=== PATIENT | female | born 1965 | race African-American/Black ===

== ENCOUNTER 2018-06-17 11:39 | Emergency (ER) | payer OTHER ==
--- OUTSIDE RECORDS SUMMARY | 2018-06-17 11:41 | XMS REPORT ---
:1965 [facility] Address [address] [place] [address] Dr. Scanlon. [address] [place] [id number] Care Team Providers Name Role Phone Unavailable Unavailable Unavailable Problems This patient has no known problems. Allergies, Adverse Reactions, Alerts This patient has no known allergies or adverse reactions. Medications This patient has no known medications.
[2018-06-17 12:23] LABS: Absolute Lymphocytes (CBC) 2.3 K/uL (0.7-4.9); Absolute Monocytes 0.6 K/uL (0.1-1.3); Absolute Neutrophil 3.4 K/uL (1.8-8.0); Basophils % 1.1 % (0-1.3); Eosinophils % 2.7 % (0-4.4); Hematocrit 46.7 % (36.0-45.0); Lymphocytes % 35.1 % (15.3-44.8); MPV 10.1 fL (7.6-11.3); Monocytes % 8.7 % (3.3-12.3); RBC Red Blood Cell Count 5.35 M/uL (3.86-4.86)
[2018-06-17 12:28] LABS: Protime INR 1.27
[2018-06-17 12:36] LABS: ALT/SGPT 34 U/L (12-78); AST/SGOT 22 U/L (15-37); Albumin 3.8 g/dL (3.4-5.0); Alkaline Phosphatase 58 U/L (45-117); BUN Blood Urea Nitrogen 19 mg/dL (7-18); Bicarbonate 37 mmol/L (21-32); Bilirubin Direct 0.4 mg/dL (0-0.2); Bilirubin Total 1.6 mg/dL (0.2-1.0); Glucose Level 90 mg/dL (74-106); Magnesium 2.3 mg/dL (1.8-2.4); NT PRO-BNP 236 pg/mL (<125); Potassium 4.2 mmol/L (3.5-5.1); Protein, Total 7.9 g/dL (6.4-8.2); Sodium Level 140 mmol/L (136-145); Troponin (Emerg Dept Use Only) < 0.02 ng/mL (0.0-0.045)
--- NOTE | 2018-06-17 12:56 | RAD REPORT ---
EXAM DESCRIPTION: RAD - Chest Single View - 06/17/2018 12:45 pm CLINICAL HISTORY: Cough, shortness of breath COMPARISON: June 2013 TECHNIQUE: AP portable chest image was obtained 1241 hours . FINDINGS: Lungs are clear. No failure or volume overload. Heart and vasculature are normal. No measu rable pleural effusion and no pneumothorax. No acute bony abnormality seen. No acute aortic findings suspected. Exam is limited by portable technique and large body habitus. IMPRESSION: No acute cardiopulmonary process.
--- NOTE | 2018-06-17 14:51 | ER ---
Nurse's Notes [facility] Name: Danie Kumar Age: 53 yrs Sex: Female : 1965 Arrival Date: 06/17/2018 Time: 11:44 Bed 5 Private MD: Diagnosis: Chronic obstructive pulmonary disease, unspecified Presentation: 06/17 11:45 Presenting complaint: Patient states: Shortness of breath, cough, and congestion for aj1 the past 2 weeks. She saw her PHCP a week ago and was given a Rx for Pro-Air inhaler and steroids, which she has now finished with no relief. Reports a non-productive cough, chest pain with cough. Patient was 94% on room air upon EMS arrival, breath sounds diminished with wheezes, patient given A\T\A treatment en route. Transition of care: patient was not received from another setting of care. Onset of symptoms was June 2018. Risk Assessment: Do you want to hurt yourself or someone else? Patient reports no desire to harm self or others. Initial Sepsis Screen: Does the patient meet any 2 criteria? HR > 90 bpm. No. Patient's initial sepsis screen is negative. Does the patient have a suspected source of infection? Yes: Productive cough/pneumonia. Care prior to arrival: None. 11:45 Method Of Arrival: EMS: [facility] aj 11:45 Acuity: ANNABEL 3 aj1 Triage Assessment: 11:52 General: Appears in no apparent distress. comfortable, Behavior is calm, cooperative, aj1 appropriate for age. Pain: Complains of pain in chest Pain does not radiate. Pain currently is 5 out of 10 on a pain scale. Quality of pain is described as aching, Is intermittent, Aggravated by coughing. Respiratory: Reports shortness of breath cough that is non-productive, persistent Onset: The symptoms/episode began/occurred 2 weeks ago, the patient has mild shortness of breath. Historical: - Allergies: 11:52 Adhesives; aj1 - Home Meds: 11:52 furosemide 80 mg Oral tab 1 tab 2 times per day [Active]; potassium chloride 20 mEq aj1 Oral TbER 1 tab once daily [Active]; tramadol 50 mg Oral tab 1 tab as needed [Active]; Eliquis 5 mg Oral tab 1 tab 2 times per day [Active]; allopurinol 100 mg Oral tab 1 tab once daily [Active]; colchicine 0.6 mg Oral tab 1 tab as needed [Active]; multivitamin oral cap daily [Active]; digoxin 125 mcg Oral tab 1 tab once daily [Active]; simvastatin 40 mg Oral tab 1 tab nightly [Active]; spironolactone 25 mg Oral tab 1 tab once daily [Active]; carvedilol 6.25 mg Oral tab 1 tab 2 times per day [Active]; budesonide-formoterol inhalation inhalation 2 times per day [Active]; - PMHx: 11:52 CHF; Hyperlipidemia; Hypertension; COPD; cardiomyopathy; chronic kidney disease-stage aj1 3; Sleep Apnea; Gout; - Immunization history:: Flu vaccine is not up to date. - Social history:: Smoking status: Patient/guardian denies using tobacco, but has a distant history of tobacco abuse. - Ebola Screening: : Patient denies travel to an Ebola-affected area in the 21 days before illness onset. Screenin:54 Abuse screen: Denies threats or abuse. Denies injuries from another. Nutritional aj1 screening: No deficits noted. Tuberculosis screening: No symptoms or risk factors identified. 16:28 Fall Risk None identified. aj1 Assessment: 11:54 General: Appears in no apparent distress. comfortable, Behavior is calm, cooperative, aj1 appropriate for age. Pain: Complains of pain in chest Pain does not radiate. Pain currently is 5 out of 10 on a pain scale. Quality of pain is described as aching, Pain began 2 weeks ago Is intermittent, Aggravated by coughing. Neuro: Level of Consciousness is awake, alert, obeys commands, Oriented to person, place, time, situation, Moves all extremities. Full function Speech is normal, Facial symmetry appears normal. Cardiovascular: Reports chest pain, with coughing Heart tones S1 S2 present Patient's skin is warm and dry. Rhythm is regular. Respiratory: Reports shortness of breath cough that is non-productive, persistent Airway is patent Respiratory effort is even, unlabored, Respiratory pattern is regular, symmetrical, Breath sounds with wheezes bilaterally. GI: No signs and/or symptoms were reported involving the gastrointestinal system. : No signs and/or symptoms were reported regarding the genitourinary system. EENT: Reports nasal congestion nasal discharge. Derm: No signs and/or symptoms reported regarding the dermatologic system. Skin is pink, warm \T\ dry. normal. Musculoskeletal: No signs and/or symptoms reported regarding the musculoskeletal system. Circulation, motion, and sensation intact. 13:00 Reassessment: Patient appears in no apparent distress at this time. No changes from aj1 previously documented assessment. Patient and/or family updated on plan of care and expected duration. Pain level reassessed. Patient is alert, oriented x 3, equal unlabored respirations, skin warm/dry/pink. 14:30 Reassessment: Patient appears in no apparent distress at this time. No changes from aj1 previously documented assessment. Patient and/or family updated on plan of care and expected duration. Pain level reassessed. Patient is alert, oriented x 3, equal unlabored respirations, skin warm/dry/pink. 16:27 Reassessment: Patient appears in no apparent distress at this time. No changes from aj1 previously documented assessment. Patient and/or family updated on plan of care and expected duration. Pain level reassessed. Patient is alert, oriented x 3, equal unlabored respirations, skin warm/dry/pink. Vital Signs: 11:52 BP 103 / 70; Pulse 115; Resp 20; Temp 97.6; Pulse Ox 97% on R/A; Weight 155.58 kg (R); aj1 Height 5 ft. 9 in. (175.26 cm) (R); Pain 5/10; 16:28 BP 108 / 75; Pulse 87; Resp 18; Pulse Ox 97% on R/A; aj1 11:52 Body Mass Index 50.65 (155.58 kg, 175.26 cm) aj1 ED Course: 11:44 Patient arrived in ED. aj1 11:47 Triage completed. aj1 11:50 Olivier Cruz NP is PHCP. pm1 11:50 Emerson Vargas MD is Attending Physician. pm1 11:52 Arm band placed on. aj1 11:54 Patient has correct armband on for positive identification. Bed in low position. Call [facility] light in reach. Side rails up X 1. residential monitor on. Pulse ox on. NIBP on. 11:54 No provider procedures requiring assistance completed. aj1 11:57 Missed attempt(s): 22 gauge in right antecubital area. kj1 12:11 Selina Funk, RN is Primary Nurse. aj1 12:13 Initial lab(s) drawn, by me, sent to lab. Inserted saline lock: 22 gauge in right aj1 forearm, using aseptic technique. Blood collected. 12:25 EKG done, by vehicle operator technician. reviewed by Olivier Cruz NP. at1 12:46 XRAY Chest (1 view) In Process Unspecified. EDMS 16:28 IV discontinued, intact, bleeding controlled, No redness/swelling at site. Pressure aj1 dressing applied. Administered Medications: 06:10 Drug: SOLU-Medrol 125 mg Route: IVP; Site: right forearm; aj1 16:26 Follow up: Response: No adverse reaction aj1 Outcome: 14:51 Discharge ordered by MD. pm1 16:28 Discharged to home ambulatory. aj1 16:28 Condition: good 16:28 Discharge instructions given to patient, Instructed on discharge instructions, follow up and referral plans. medication usage, Demonstrated understanding of instructions, follow-up care, medications, Prescriptions given X 4. 16:29 Patient left the ED. aj1 Signatures: Dispatcher [employer] EDND Selina Funk RN RN aj1 Ritika Hunter, tool storage attendant EKG Tat1 Olivier Cruz, LIZA ENGRAVER AUTOMATIC pm1 Billie Vu kj1
--- NOTE | 2018-06-17 14:51 | EDPHYS ---
Physician Documentation [facility] Name: Danie Kumar Age: 53 yrs Sex: Female : 1965 Arrival Date: 06/17/2018 Time: 11:44 Bed 5 Private MD: ED Physician Emerson Vargas HPI: 06/17 12:00 This 53 yrs old Black Female presents to ER via EMS with complaints of Shortness Of pm1 Breath. 12:00 The patient has shortness of breath at rest. Onset: The symptoms/episode began/occurred pm1 2 week(s) ago. Duration: The symptoms are continuous, and are unchanged since they started. The patient's shortness of breath is aggravated by nothing, is alleviated by nebulizer treatment, in route by EMS. Associated signs and symptoms: Pertinent positives: non-productive cough, Chest pain only with coughing, Pertinent negatives: fever. Severity of symptoms: in the emergency department the symptoms are unchanged Pain is currently a 0 / 10. The patient has been recently seen by a physician: the patient's primary care provider, 1 week(s) ago, given a prescription for inhaler and steroids. Patient presenting to the ER due to lack of improvement with steroid course and inhaler as prescribed by PCP. Patient's symptoms improved with breathing treatment in route by EMS. Historical: - Allergies: 11:52 Adhesives; aj1 - Home Meds: 11:52 furosemide 80 mg Oral tab 1 tab 2 times per day [Active]; potassium chloride 20 mEq aj1 Oral TbER 1 tab once daily [Active]; tramadol 50 mg Oral tab 1 tab as needed [Active]; Eliquis 5 mg Oral tab 1 tab 2 times per day [Active]; allopurinol 100 mg Oral tab 1 tab once daily [Active]; colchicine 0.6 mg Oral tab 1 tab as needed [Active]; multivitamin oral cap daily [Active]; digoxin 125 mcg Oral tab 1 tab once daily [Active]; simvastatin 40 mg Oral tab 1 tab nightly [Active]; spironolactone 25 mg Oral tab 1 tab once daily [Active]; carvedilol 6.25 mg Oral tab 1 tab 2 times per day [Active]; budesonide-formoterol inhalation inhalation 2 times per day [Active]; - PMHx: 11:52 CHF; Hyperlipidemia; Hypertension; COPD; cardiomyopathy; chronic kidney disease-stage aj1 3; Sleep Apnea; Gout; - Immunization history:: Flu vaccine is not up to date. - Social history:: Smoking status: Patient/guardian denies using tobacco, but has a distant history of tobacco abuse. - Ebola Screening: : Patient denies travel to an Ebola-affected area in the 21 days before illness onset. ROS: 12:00 Constitutional: Negative for fever, chills, and weight loss, Eyes: Negative for injury, pm1 pain, redness, and discharge, ENT: Negative for injury, pain, and discharge, Neck: Negative for injury, pain, and swelling, Cardiovascular: Negative for chest pain, palpitations, and edema, Abdomen/GI: Negative for abdominal pain, nausea, vomiting, diarrhea, and constipation, Back: Negative for injury and pain, : Negative for injury, bleeding, discharge, and swelling, MS/Extremity: Negative for injury and deformity, Skin: Negative for injury, rash, and discoloration, Neuro: Negative for headache, weakness, numbness, tingling, and seizure. 12:00 Respiratory: Positive for cough, with no reported sputum, shortness of breath, at rest. Exam: 12:00 Constitutional: This is a well developed, well nourished patient who is awake, alert, pm1 and in no acute distress. Head/Face: Normocephalic, atraumatic. Eyes: Pupils equal round and reactive to light, extra-ocular motions intact. Lids and lashes normal. Conjunctiva and sclera are non-icteric and not injected. Cornea within normal limits. Periorbital areas with no swelling, redness, or edema. ENT: Nares patent. No nasal discharge, no septal abnormalities noted. Tympanic membranes are normal and external auditory canals are clear. Oropharynx with no redness, swelling, or masses, exudates, or evidence of obstruction, uvula midline. Mucous membranes moist. Neck: Trachea midline, no thyromegaly or masses palpated, and no cervical lymphadenopathy. Supple, full range of motion without nuchal rigidity, or vertebral point tenderness. No Meningismus. Chest/axilla: Normal chest wall appearance and motion. Nontender with no deformity. No lesions are appreciated. Cardiovascular: Regular rate and rhythm with a normal S1 and S2. No gallops, murmurs, or rubs. Normal PMI, no JVD. No pulse deficits. Respiratory: Lungs have equal breath sounds bilaterally, clear to auscultation and percussion. No rales, rhonchi or wheezes noted. No increased work of breathing, no retractions or nasal flaring. Abdomen/GI: Soft, non-tender, with normal bowel sounds. No distension or tympany. No guarding or rebound. No evidence of tenderness throughout. Back: No spinal tenderness. No costovertebral tenderness. Full range of motion. Skin: Warm, dry with normal turgor. Normal color with no rashes, no lesions, and no evidence of cellulitis. MS/ Extremity: Pulses equal, no cyanosis. Neurovascular intact. Full, normal range of motion. 12:00 Neuro: Orientation: is normal, Motor: is normal, moves all fours, Gait: is steady, at a normal pace, without difficulty. Vital Signs: 11:52 BP 103 / 70; Pulse 115; Resp 20; Temp 97.6; Pulse Ox 97% on R/A; Weight 155.58 kg (R); aj1 Height 5 ft. 9 in. (175.26 cm) (R); Pain 5/10; 16:28 BP 108 / 75; Pulse 87; Resp 18; Pulse Ox 97% on R/A; aj1 11:52 Body Mass Index 50.65 (155.58 kg, 175.26 cm) [facility] MDM: 11:50 Patient medically screened. pm1 14:50 Data reviewed: vital signs. Data interpreted: Pulse oximetry: on room air is 97 %. pm1 Interpretation: normal. Counseling: I had a detailed discussion with the patient and/or guardian regarding: the historical points, exam findings, and any diagnostic results supporting the discharge/admit diagnosis, lab results, radiology results, the need for outpatient follow up, to return to the emergency department if symptoms worsen or persist or if there are any questions or concerns that arise at home. 06/17 11:59 Order name: Basic Metabolic Panel; Complete Time: 12:46 pm1 06/17 11:59 Order name: CBC with Diff; Complete Time: 12:31 pm1 06/17 11:59 Order name: LFT's; Complete Time: 12:46 pm1 06/17 11:59 Order name: Magnesium; Complete Time: 12:46 pm1 06/17 11:59 Order name: NT PRO-BNP; Complete Time: 12:46 pm1 06/17 11:59 Order name: PT-INR; Complete Time: 12:31 pm1 06/17 11:59 Order name: Troponin (emerg Dept Use Only); Complete Time: 12:46 pm1 06/17 11:59 Order name: XRAY Chest (1 view); Complete Time: 13:04 pm1 06/17 11:59 Order name: EKG; Complete Time: 12:00 pm06/17 11:59 Order name: Cardiac monitoring; Complete Time: 12:12 pm1 06/17 11:59 Order name: EKG - Nurse/Tech; Complete Time: 12:35 pm1 06/17 11:59 Order name: IV Saline Lock; Complete Time: 12:12 pm06/17 11:59 Order name: Flu; Complete Time: 12:46 pm1 06/17 11:59 Order name: Labs collected and sent; Complete Time: 12:12 pm06/17 11:59 Order name: O2 Per Protocol; Complete Time: 12:12 pm06/17 11:59 Order name: O2 Sat Monitoring; Complete Time: 12:12 pm1 Administered Medications: 06:10 Drug: SOLU-Medrol 125 mg Route: IVP; Site: right forearm; aj 16:26 Follow up: Response: No adverse reaction aj1 Disposition: 06/17/18 14:51 Discharged to Home. Impression: Chronic obstructive pulmonary disease, unspecified. - Condition is Stable. - Discharge Instructions: How to Use an Inhaler, Chronic Obstructive Pulmonary Disease Exacerbation, [id number]. - Prescriptions for Medrol (Damian) 4 mg Oral Tablets, Dose Pack - take 1 tablet by ORAL route as directed - follow package instructions; 1 packet. Albuterol Sulfate 90 mcg/actuation - inhale 1-2 puff by INHALATION route every 4-6 hours; 1 Inhaler. Guaifenesin AC 10- 100 mg/5 mL Oral Liquid - take 10 milliliter by ORAL route every 4 hours As needed; 240 milliliter. Zithromax Z- Damian 250 mg Oral Tablet - take 1 tablet by ORAL route as directed for 5 days Day 1 - take two (2) tablets one time. Day 2, 3, 4 , 5 take one (1) tablet once daily.; 6 tablet. - Medication Reconciliation Form, Thank You Letter, Antibiotic Education, Prescription Opioid Use form. - Follow up: Emergency Department; When: As needed; Reason: Worsening of condition. Follow up: Private Physician; When: 2 - 3 days; Reason: Recheck today's complaints, Continuance of care, Re-evaluation by your physician. - Problem is new. - Symptoms have improved. Addendum: 06/20/2018 08:39 Co-signature as Attending Physician, Emerson Vargas MD I agree with the assessment and k dr plan of care. Signatures: Dispatcher [employer] EDMS Selina Funk RN RN aj1 Emerson Vargas MD MD kdr Olivier Cruz NP SAND CUTTER OPERATOR pm1 Corrections: (The following items were deleted from the chart) 06/17 14:59 14:51 06/17/2018 14:51 Discharged to Home. Impression: Bronchitis, not specified as pm1 acute or chronic. Condition is Stable. Forms are Medication Reconciliation Form, Thank You Letter, Antibiotic Education, Prescription Opioid Use. Follow up: Emergency Department; When: As needed; Reason: Worsening of condition. Follow up: Private Physician; When: 2 - 3 days; Reason: Recheck today's complaints, Continuance of care, Re-evaluation by your physician. Problem is new. Symptoms have improved. pm1 16:29 14:59 06/17/2018 14:51 Discharged to Home. Impression: Chronic obstructive pulmonary aj1 disease, unspecified. Condition is Stable. Discharge Instructions: How to Use an Inhaler, Chronic Obstructive Pulmonary Disease Exacerbation, [id number]. Prescriptions for Medrol (Damian) 4 mg Oral Tablets, Dose Pack - take 1 tablet by ORAL route as directed - follow package instructions; 1 packet, Albuterol Sulfate 90 mcg/actuation - inhale 1-2 puff by INHALATION route every 4-6 hours; 1 Inhaler, Guaifenesin AC 10-100 mg/5 mL Oral Liquid - take 10 milliliter by ORAL route every 4 hours As needed; 240 milliliter, Zithromax Z-Damian 250 mg Oral Tablet - take 1 tablet by ORAL route as directed for 5 days Day 1 - take two (2) tablets one time. Day 2, 3, 4 , 5 take one (1) tablet once daily.; 6 tablet. and Forms are Medication Reconciliation Form, Thank You Letter, Antibiotic Education, Prescription Opioid Use. Follow up: Emergency Department; When: As needed; Reason: Worsening of condition. Follow up: Private Physician; When: 2 - 3 days; Reason: Recheck today's complaints, Continuance of care, Re-evaluation by your physician. Problem is new. Symptoms have improved. pm1
[2018-06-17] MEDS ORDERED: METHYLPREDNISOLONE 125 MG INJ ONE (16:32)
--- NOTE | 2018-06-18 09:46 | EKG ---
Test Date: 2018-06-17 Test Time: 12:14:30 Drug Abuse Social Worker: KEYA MEASUREMENT RESULTS: Intervals: Rate: 89 NV: QRSD: 84 QT: 350 QTc: 425 [place]: P: NV: QRS: -21 T: 48 INTERPRETIVE STATEMENTS: Atrial fibrillation Low voltage QRS Cannot rule out Anterior infarct, age undetermined Abnormal ECG Compared to ECG 05/06/2007 09:07:30 Low QRS voltage now present Sinus bradycardia no longer present Left ventricular hypertrophy no longer present Myocardial infarct finding still present Electronically Signed On 06-18-18 09:43:13 CDT by Wayne Castano
== END 2018-06-17 16:29 | disposition home or self-care (01) ==
LOC: ER 11:39
DX: J44.9 Chronic obstructive pulmonary disease, unspecified (principal); I12.9 Hypertensive chronic kidney disease with stage 1 through stage 4 chronic kidney disease, or unspecified chronic kidney disease; N18.3 Chronic kidney disease, stage 3 (moderate); E78.5 Hyperlipidemia, unspecified; I42.9 Cardiomyopathy, unspecified; Z79.01 Long term (current) use of anticoagulants; Z91.048 Other nonmedicinal substance allergy status
CPT/HCPCS: 36415; 71045; 80048; 80076; 83735; 83880; 84484; 85025; 85610; 87804; 93005; 96374; 99285; J2930

== ENCOUNTER 2018-08-27 10:11 | Inpatient (IN) | payer SELFPAY ==
--- OUTSIDE RECORDS SUMMARY | 2018-08-27 10:36 | XMS REPORT ---
:1965 [facility] Address [address] [place] [address] Dr. Scanlon. [address] [place] [address] Care Team Providers Name Role Phone Unavailable Unavailable Unavailable Problems This patient has no known problems. Allergies, Adverse Reactions, Alerts This patient has no known allergies or adverse reactions. Medications This patient has no known medications.
[2018-08-27] MEDS ORDERED: LEVALBUTEROL 1.25 MG/3 ML NEB ONE (10:40)
[2018-08-27] MEDS ORDERED: FUROSEMIDE 40 MG/4 ML VIAL ONE (10:40)
[2018-08-27 10:45] LABS: Absolute Lymphocytes (CBC) 1.7 K/uL (0.7-4.9); Basophils % 0.8 % (0-1.3); Eosinophils % 2.8 % (0-4.4); Hematocrit 44.9 % (36.0-45.0); MPV 10.7 fL (7.6-11.3); Monocytes % 12.7 % (3.3-12.3); RBC Red Blood Cell Count 5.07 M/uL (3.86-4.86)
[2018-08-27 10:46] LABS: Protime INR 1.09
[2018-08-27 11:04] LABS: ALT/SGPT 32 U/L (12-78); AST/SGOT 22 U/L (15-37); Albumin 3.6 g/dL (3.4-5.0); Alkaline Phosphatase 51 U/L (45-117); BUN Blood Urea Nitrogen 12 mg/dL (7-18); Bicarbonate 35 mmol/L (21-32); Bilirubin Direct 0.2 mg/dL (0-0.2); Glucose Level 108 mg/dL (74-106); Magnesium 2.2 mg/dL (1.8-2.4); NT PRO-BNP 343 pg/mL (<125); Potassium 4.1 mmol/L (3.5-5.1); Protein, Total 7.2 g/dL (6.4-8.2); Sodium Level 144 mmol/L (136-145); Troponin (Emerg Dept Use Only) < 0.02 ng/mL (0.0-0.045)
--- NOTE | 2018-08-27 11:44 | RAD REPORT ---
EXAM DESCRIPTION: RAD - Chest Single View - 08/27/2018 10:55 am CLINICAL HISTORY: Difficulty breathing, history of COPD and CHF COMPARISON: June 2018 TECHNIQUE: AP portable chest image was obtained 1049 hours . FINDINGS: Lung volumes are low. No focal mass or consolidation. Lung markings are accentuated by sha llow inspiration, body habitus and portable technique. Significant change from prior study is not rosmery pected. Cardiomegaly is present, exaggerated by the shallow inspiration. No measurable pleural effusi on and no pneumothorax. No acute bony abnormality seen. No acute aortic findings suspected. IMPRESSION: Shallow inspiration film showing no focal lung parenchymal process. Cardiomegaly without additional findings of CHF/volume overload.
--- NOTE | 2018-08-27 11:45 | RAD REPORT ---
EXAM DESCRIPTION: RAD - Abdomen 1 View (KUB) - 08/27/2018 11:05 am CLINICAL HISTORY: Difficulty breathing, shortness of breath, abdominal pain COMPARISON: None. FINDINGS: Bowel gas pattern is non-specific. No obstruction, free air or pneumatosis. No suspicious calcifications. No abnormal stool volume evident in the colon. No significant bony findings IMPRESSION: Negative KUB examination.
--- NOTE | 2018-08-27 14:39 | ER ---
Nurse's Notes [facility] Name: Danie Kumar Age: 53 yrs Sex: Female : 1965 Arrival Date: 08/27/2018 Time: 10:11 Bed 5 Private MD: Diagnosis: Acute on chronic combined systolic (congestive) and diastolic (congestive) heart failure;Hypoxia Presentation: 08/27 10:12 Presenting complaint: EMS states: pt is having difficulty breathing, hx of COPD and hj CHF, for a week now, denies fever, on scene, pt is on 89-90% O2 sat RA; NC in place, O2 sat remains on low 90's; placed on NRB- O2 sat increased to 98%;. Transition of care: patient was not received from another setting of care. Onset of symptoms was August 27, 2018. Risk Assessment: Do you want to hurt yourself or someone else? Patient reports no desire to harm self or others. Initial Sepsis Screen: Does the patient meet any 2 criteria? No. Patient's initial sepsis screen is negative. Does the patient have a suspected source of infection? No. Patient's initial sepsis screen is negative. Care prior to arrival: None. 10:12 Method Of Arrival: EMS: [facility] 10:12 Acuity: ANNABEL 2 hj Triage Assessment: 10:22 General: Appears in no apparent distress. uncomfortable, obese, Behavior is calm, hj cooperative, appropriate for age. Respiratory: Reports labored breathing Onset: The symptoms/episode began/occurred one week, the patient has moderate shortness of breath. 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 - Irregular menses Historical: - Allergies: 10:06 Adhesives; hj - Home Meds: 10:06 allopurinol 100 mg Oral tab 1 tab once daily [Active]; budesonide-formoterol inhalation hj 2 times per day [Active]; carvedilol 6.25 mg Oral tab 1 tab 2 times per day [Active]; colchicine 0.6 mg Oral tab 1 tab as needed [Active]; digoxin 125 mcg Oral tab 1 tab once daily [Active]; Eliquis 5 mg Oral tab 1 tab 2 times per day [Active]; furosemide 80 mg Oral tab 1 tab 2 times per day [Active]; multivitamin Oral cap daily [Active]; potassium chloride 20 mEq Oral TbER 1 tab once daily [Active]; simvastatin 40 mg Oral tab 1 tab nightly [Active]; spironolactone 25 mg Oral tab 1 tab once daily [Active]; tramadol 50 mg Oral tab 1 tab as needed [Active]; - PMHx: 10:06 cardiomyopathy; CHF; chronic kidney disease-stage 3; COPD; Gout; Hyperlipidemia; hj Hypertension; Sleep Apnea; - PSHx: 10:06 Unable to obtain; hj - Immunization history:: Adult Immunizations up to date. - Social history:: Smoking status: Patient/guardian denies using tobacco, Patient/guardian denies using alcohol. - Ebola Screening: : Patient negative for fever greater than or equal to 101.5 degrees Fahrenheit, and additional compatible Ebola Virus Disease symptoms Patient denies exposure to infectious person Patient denies travel to an Ebola-affected area in the 21 days before illness onset. Screenin:06 Abuse screen: Denies threats or abuse. Denies injuries from another. Nutritional hj screening: No deficits noted. Tuberculosis screening: No symptoms or risk factors identified. Fall Risk None identified. Assessment: 10:20 Pain: Denies pain. Cardiovascular: Rhythm is. Respiratory: Airway is patent Respiratory hj effort is labored, Respiratory pattern is tachypnea 10:20 General: Appears in no apparent distress. uncomfortable, obese, Behavior is calm, hj cooperative, appropriate for age. Neuro: Level of Consciousness is awake, alert, obeys commands, Oriented to person, place, time, situation, Appropriate for age. GI: No signs and/or symptoms were reported involving the gastrointestinal system. : No signs and/or symptoms were reported regarding the genitourinary system. EENT: No signs and/or symptoms were reported regarding the EENT system. Derm: No signs and/or symptoms reported regarding the dermatologic system. Musculoskeletal: No signs and/or symptoms reported regarding the musculoskeletal system. 11:39 Reassessment: Patient and/or family updated on plan of care and expected duration. Pain hj level reassessed. Patient is alert, oriented x 3, equal unlabored respirations, skin warm/dry/pink. awaiting results and POC:. 12:03 Reassessment: Patient and/or family updated on plan of care and expected duration. Pain hj level reassessed. Patient is alert, oriented x 3, equal unlabored respirations, skin warm/dry/pink. awaiting results and POC;. 13:30 Reassessment: Patient and/or family updated on plan of care and expected duration. Pain hj level reassessed. Patient is alert, oriented x 3, equal unlabored respirations, skin warm/dry/pink. heart rate goes up to 115- 120's when pt goes to bedside commode. 14:21 Reassessment: ambulated pt, 50 feet, O2 sat drops to 81% and pt is complaining of SOB;. hj 15:30 Reassessment: awaiting for room placement;. hj 16:17 Reassessment: Patient and/or family updated on plan of care and expected duration. Pain hj level reassessed. Patient is alert, oriented x 3, equal unlabored respirations, skin warm/dry/pink. awaiting room placement; BP drops to 81/49; MD notified with order of Ns bolus;. Vital Signs: 10:14 BP 104 / 68; Pulse 112; Resp 29; Temp 98.2(O); Pulse Ox 100% on Non-rebreather mask; hj Weight 146.96 kg; Height 5 ft. 9 in. (175.26 cm); Pain 0/10; 10:16 Pulse Ox 99% on 2 lpm NC; hj 11:35 BP 105 / 97; Pulse 98; Resp 20; Pulse Ox 100% on 2 lpm NC; hj 12:09 BP 110 / 85; Pulse 95; Resp 20; Pulse Ox 96% on 2 lpm NC; hj 13:17 BP 116 / 69; Pulse 95; Resp 20; Pulse Ox 100% on 2 lpm NC; hj 13:57 BP 100 / 74; Pulse 88; Resp 20; Pulse Ox 100% on 2 lpm NC; hj 14:42 Pulse Ox 81% on R/A; hj 15:07 BP 100 / 68; Pulse 81; Resp 18; Pulse Ox 100% on 2 lpm NC; hj 16:07 BP 97 / 58; Pulse 80; Resp 18; Pulse Ox 99% on 2 lpm NC; hj 16:14 BP 81 / 49; Pulse 82; Resp 20; Pulse Ox 99% on 2 lpm NC; hj 16:44 BP 85 / 49; Pulse 89; Resp 20; Pulse Ox 99% on 2 lpm NC; hj 10:14 Body Mass Index 47.84 (146.96 kg, 175.26 cm) hj 14:42 while walking hj 16:14 MD aware with orders of NS 500 ml bolus hj ED Course: 10:11 Patient arrived in ED. hj 10:12 Aiden Anton PA is PHCP. jmm 10:12 Jacob Ruiz MD is Attending Physician. jmm 10:14 Triage completed. hj 10:19 Jacob Ruiz MD is Attending Physician. jmm 10:20 Arm band placed on right wrist. hj 10:22 Beto Brito, MONISHA is Primary Nurse. hj 10:22 Patient has correct armband on for positive identification. Placed in gown. Bed in low hj position. Call light in reach. Side rails up X 1. 10:28 EKG done, by ED staff, reviewed by Aiden MENDOSA. jb1 10:30 Initial lab(s) drawn, by me, sent to lab. Inserted saline lock: 22 gauge in left hj antecubital area, using aseptic technique. Blood collected. 10:53 XRAY Chest (1 view) In Process Unspecified. EDMS 11:05 Abdomen 1 View (KUB) XRAY In Process Unspecified. EDMS 13:56 Digoxin Sent. hj 14:36 Marycarmen Anderson MD is Hospitalizing Provider. jmm 17:30 No provider procedures requiring assistance completed. Patient admitted, IV remains in hj place. intact. Administered Medications: 10:23 Drug: Xopenex (3) 1.25 mg Route: Inhalation; hj 10:36 Drug: Lasix 40 mg Route: IVP; Site: left antecubital; hj 11:00 Follow up: Response: No adverse reaction hj 12:59 Drug: carvedilol 6.25 mg Route: PO; hj 13:04 Follow up: Response: No adverse reaction hj 14:39 Drug: Digoxin 0.5 mg Route: IVP; Site: left antecubital; hj 15:08 Follow up: Response: No adverse reaction hj 16:11 Drug: NS 0.9% 500 ml Route: IV; Rate: bolus; Site: left antecubital; hj 16:15 Follow up: IV Status: Infusion continued upon admission hj Outcome: 14:38 Decision to Hospitalize by Provider. jmm 17:31 Admitted to Med/surg accompanied by tech, via wheelchair, room 213, with oxygen, with hj chart, Report called to MONISHA Crespo 17:31 Condition: stable 17:31 Instructed on the need for admit, Demonstrated understanding of instructions. 17:32 Patient left the ED. tee Signatures: Dispatcher [employer] EDMS Renny Magallanes jb1 Aiden Anton PA PA jmm Joaquin, Henry, RN RN hj
--- NOTE | 2018-08-27 14:39 | EDPHYS ---
Physician Documentation [facility] Name: Danie Kumar Age: 53 yrs Sex: Female : 1965 Arrival Date: 08/27/2018 Time: 10:11 Bed 5 Private MD: ED Physician Jacob Ruiz HPI: 08/27 10:18 This 53 yrs old Black Female presents to ER via EMS with complaints of Breathing jmm Difficulty. 10:18 The patient has shortness of breath at rest. Onset: The symptoms/episode began/occurred jmm 1 week(s) ago. Duration: The symptoms are continuous, and are steadily getting worse. Associated signs and symptoms: Pertinent negatives: fever. This is a 53 year old female with a history of chf, chronic kidney disease, copd, that presents to the ED with complaints of chronic shortness of breath which has worsened over the past week. Patient states being chronically short of breath but over the past week her symptoms have worsened. Patient also complains of 2 weeks of constipation without abdominal pain. . 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 - Irregular menses hj Historical: - Allergies: 10:06 Adhesives; hj - Home Meds: 10:06 allopurinol 100 mg Oral tab 1 tab once daily [Active]; budesonide-formoterol inhalation hj 2 times per day [Active]; carvedilol 6.25 mg Oral tab 1 tab 2 times per day [Active]; colchicine 0.6 mg Oral tab 1 tab as needed [Active]; digoxin 125 mcg Oral tab 1 tab once daily [Active]; Eliquis 5 mg Oral tab 1 tab 2 times per day [Active]; furosemide 80 mg Oral tab 1 tab 2 times per day [Active]; multivitamin Oral cap daily [Active]; potassium chloride 20 mEq Oral TbER 1 tab once daily [Active]; simvastatin 40 mg Oral tab 1 tab nightly [Active]; spironolactone 25 mg Oral tab 1 tab once daily [Active]; tramadol 50 mg Oral tab 1 tab as needed [Active]; - PMHx: 10:06 cardiomyopathy; CHF; chronic kidney disease-stage 3; COPD; Gout; Hyperlipidemia; hj Hypertension; Sleep Apnea; - PSHx: 10:06 Unable to obtain; hj - Immunization history:: Adult Immunizations up to date. - Social history:: Smoking status: Patient/guardian denies using tobacco, Patient/guardian denies using alcohol. - Ebola Screening: : Patient negative for fever greater than or equal to 101.5 degrees Fahrenheit, and additional compatible Ebola Virus Disease symptoms Patient denies exposure to infectious person Patient denies travel to an Ebola-affected area in the 21 days before illness onset. ROS: 10:18 Constitutional: Negative for fever, chills, and weight loss, Cardiovascular: Negative jmm for chest pain, palpitations, and edema. 10:18 Back: Negative for injury and pain, : Negative for injury, bleeding, discharge, and swelling. 10:18 Respiratory: Positive for shortness of breath. 10:18 Abdomen/GI: Positive for nausea, constipation. 10:18 MS/extremity: Positive for swelling. 10:18 All other systems are negative. Exam: 10:18 Constitutional: This is a well developed, well nourished patient who is awake, alert, jmm and in no acute distress. Head/Face: atraumatic. Eyes: EOMI, no conjunctival erythema appreciated ENT: Moist Mucus Membranes Neck: Trachea midline, Supple Chest/axilla: Normal chest wall appearance and motion. 10:18 Cardiovascular: Rate: tachycardic, Rhythm: regular. 10:18 Respiratory: the patient does not display signs of respiratory distress, Respirations: normal, Breath sounds: are clear throughout. 10:18 Abdomen/GI: Inspection: obese Bowel sounds: normal, Palpation: soft. 10:18 Back: ROM is normal. 10:18 Musculoskeletal/extremity: ROM: intact in all extremities. 10:18 Musculoskeletal/extremity: bilateral edema appreciated. 10:18 Skin: Appearance: Color: normal in color. 10:18 Neuro: Orientation: is normal, Mentation: is normal, Memory: is normal. 10:18 Psych: Behavior/mood is pleasant, cooperative. Vital Signs: 10:14 BP 104 / 68; Pulse 112; Resp 29; Temp 98.2(O); Pulse Ox 100% on Non-rebreather mask; Weight 146.96 kg; Height 5 ft. 9 in. (175.26 cm); Pain 0/10; 10:16 Pulse Ox 99% on 2 lpm NC; hj 11:35 BP 105 / 97; Pulse 98; Resp 20; Pulse Ox 100% on 2 lpm NC; hj 12:09 BP 110 / 85; Pulse 95; Resp 20; Pulse Ox 96% on 2 lpm NC; hj 13:17 BP 116 / 69; Pulse 95; Resp 20; Pulse Ox 100% on 2 lpm NC; hj 13:57 BP 100 / 74; Pulse 88; Resp 20; Pulse Ox 100% on 2 lpm NC; hj 14:42 Pulse Ox 81% on R/A; hj 15:07 BP 100 / 68; Pulse 81; Resp 18; Pulse Ox 100% on 2 lpm NC; hj 16:07 BP 97 / 58; Pulse 80; Resp 18; Pulse Ox 99% on 2 lpm NC; hj 16:14 BP 81 / 49; Pulse 82; Resp 20; Pulse Ox 99% on 2 lpm NC; hj 16:44 BP 85 / 49; Pulse 89; Resp 20; Pulse Ox 99% on 2 lpm NC; hj 10:14 Body Mass Index 47.84 (146.96 kg, 175.26 cm) hj 14:42 while walking 16:14 MD aware with orders of NS 500 ml bolus MDM: 10:18 Patient medically screened. [facility] 14:33 Data reviewed: vital signs, nurses notes, lab test result(s), EKG, radiologic studies, [facility] plain films. ED course: Patient's o2 declined on ambulation. I discussed the patient with Dr. Anderson whom accepted admission. . 08/27 10:18 Order name: Basic Metabolic Panel [facility] 08/27 10:18 Order name: CBC with Diff [facility] 08/27 10:18 Order name: LFT's [facility] 08/27 10:18 Order name: Magnesium [facility] 08/27 10:18 Order name: NT PRO-BNP [facility] 08/27 10:18 Order name: PT-INR; Complete Time: 10:53 [facility] 08/27 10:18 Order name: Troponin (emerg Dept Use Only); Complete Time: 11:32 [facility] 08/27 10:18 Order name: XRAY Chest (1 view); Complete Time: 11:47 [facility] 08/27 10:19 Order name: Basic Metabolic Panel; Complete Time: 11:32 [facility] 08/27 10:19 Order name: CBC with Automated Diff; Complete Time: 10:53 [facility] 08/27 13:57 Interpretation: HCT 44.9. pd 06/22 10:20 Order name: Liver (Hepatic) Function; Complete Time: 11:32 EDMS 08/27 13:59 Interpretation: Within normal limits. pd 08/27 10:20 Order name: Magnesium; Complete Time: 11:32 EDMS 08/27 10:20 Order name: NT PRO-BNP; Complete Time: 11:32 EDMS 08/27 12:58 Order name: Digoxin; Complete Time: 14:38 [facility] 08/27 10:18 Order name: EKG; Complete Time: 10:21 [facility] 08/27 10:18 Order name: Cardiac monitoring; Complete Time: 10:23 [facility] 08/27 10:18 Order name: EKG - Nurse/Tech; Complete Time: 10:28 [facility] 08/27 10:18 Order name: IV Saline Lock; Complete Time: 10:36 [facility] 08/27 10:18 Order name: Labs collected and sent; Complete Time: 10:37 [facility] 08/27 10:18 Order name: O2 Per Protocol; Complete Time: 10:29 [facility] 08/27 10:18 Order name: O2 Sat Monitoring; Complete Time: 10:29 [facility] 08/27 10:18 Order name: Abdomen 1 View (KUB) XRAY; Complete Time: 11:47 jmm Administered Medications: 10:23 Drug: Xopenex (3) 1.25 mg Route: Inhalation; hj 10:36 Drug: Lasix 40 mg Route: IVP; Site: left antecubital; hj 11:00 Follow up: Response: No adverse reaction hj 12:59 Drug: carvedilol 6.25 mg Route: PO; hj 13:04 Follow up: Response: No adverse reaction hj 14:39 Drug: Digoxin 0.5 mg Route: IVP; Site: left antecubital; hj 15:08 Follow up: Response: No adverse reaction hj 16:11 Drug: NS 0.9% 500 ml Route: IV; Rate: bolus; Site: left antecubital; hj 16:15 Follow up: IV Status: Infusion continued upon admission hj Disposition: 08/27/18 14:38 Hospitalization ordered by Marycarmen Anderson for Inpatient Admission. Preliminary diagnosis are Acute on chronic combined systolic (congestive) and diastolic (congestive) heart failure, Hypoxia. - Bed requested for Telemetry/MedSurg (Inpatient). - Status is Inpatient Admission. hj - Condition is Stable. - Problem is new. - Symptoms are unchanged. UTI on Admission? No Addendum: 08/29/2018 09:43 Co-signature as Attending Physician, Jacob Ruiz MD I agree with the assessment and c king plan of care. Signatures: Dispatcher [employer] EDEse Navarrete, RN RN Jacob Engle MD MD cha Mickail, Joel PA PA Beto Amin RN RN Marycarmen Degroot MD MD pd Corrections: (The following items were deleted from the chart) 08/27 16:47 14:38 Hospitalization Ordered by Marycarmen Anderson MD for Inpatient Admission. Preliminary diagnosis is Acute on chronic combined systolic (congestive) and diastolic (congestive) heart failure; Hypoxia. Bed requested for Telemetry/MedSurg (Inpatient). Status is Inpatient Admission. Condition is Stable. Problem is new. Symptoms are unchanged. UTI on Admission? No. [facility] 17:32 16:47 08/27/2018 14:38 Hospitalization Ordered by Marycarmen Anderson MD for Inpatient hj Admission. Preliminary diagnosis is Acute on chronic combined systolic (congestive) and diastolic (congestive) heart failure; Hypoxia. Bed requested for Telemetry/MedSurg (Inpatient). Status is Inpatient Admission. Condition is Stable. Problem is new. Symptoms are unchanged. UTI on Admission? No. dw
[2018-08-27] MEDS ORDERED: DIGOXIN 0.25 MG TABLET ONE (15:01)
[2018-08-27] MEDS ORDERED: DIGOXIN 0.25 MG/ML AMP ONE (15:03)
--- NOTE | 2018-08-27 16:17 | P.HP ---
Certification for Inpatient Patient admitted to: Inpatient Practitioner: I am a practitioner with admitting privileges, knowledge of patient current condition, hospital course, and medical plan of care. Services: Services provided to patient in accordance with Admission requirements found in Title 42 Section 412.3 of the Code of Federal Regulations Patient History Date of Service: 08/27/18 Reason for admission: Shortness of breath History of Present Illness: This is a 53-year-old female with history of CHF, CKD of COPD, cardiomyopathy, hypertension and hyperlipidemia admitted for progressively worsening shortness of breath. Per patient, at baseline, she does have chronic shortness of breath but for the past 1 week she has had worsening shortness of breath and her medications that she takes at home have not been helping. The shortness of breath is worsened with any kind of activity or movement. She denies any fevers , chills, headache, dizziness, syncopal/presyncopal episode, GI or complaints. Patient states that she does not have oxygen at home. Patient called the EMS and was brought to the ER. In the ER, her initial vital signs were 104/68, heart rate of 112, afebrile at 98.2, 100% on non-rebreather and a BMI of 47.84. She received breathing treatments, Lasix 40 mg. This helped improve her O2 sats to 100% on 2 L nasal cannula. Her oxygen saturation desats down to low 80s with minimal walking on room air. This was evaluated by me in the ER. Her labs were fairly unremarkable except for low digoxin level. At the time of my exam, patient was alert oriented x3, in mild respiratory distress and hemodynamically stable. She continued to decide on room air even with slight movement. She was admitted for further evaluation for acute respiratory failure. Allergies Adhesives Allergy (Uncoded 05/27/16 01:54) Unknown Home medications list reviewed: Yes - Past Medical/Surgical History -: CHF -: CKD3 -: COPD -: HTN -: HLD Review of Systems 10-point ROS is otherwise unremarkable Physical Examination - Physical Exam General: Alert, Oriented x3, Mild distress, Obese HEENT: Atraumatic, PERRLA, Mucous membr. moist/pink, EOMI, Sclerae nonicteric Neck: Supple, 2+ carotid pulse no bruit, No LAD, Without JVD or thyroid abnormality Respiratory: Dull, Crackles/rales Cardiovascular: Regular rate/rhythm, Normal S1 S2 Gastrointestinal: Normal bowel sounds, No tenderness Musculoskeletal: No tenderness Integumentary: No rashes Neurological: Normal gait, Normal speech, Normal strength at 5/5 x4 extr, Normal tone, Normal affect - Studies Laboratory Data (last 24 hrs) 08/27/18 10:33: PT 12.8 H, INR 1.09 08/27/18 10:33: WBC 5.0, Hgb 14.0, Hct 44.9, Plt Count 141 L 08/27/18 10:33: Sodium 144, Potassium 4.1, BUN 12, Creatinine 1.29, Glucose 108 H, Magnesium 2.2, Total Bilirubin 1.0, AST 22, ALT 32, Alkaline Phosphatase 51 Assessment and Plan - Problems (Diagnosis) (1) Acute respiratory failure Current Visit: Yes Status: Acute Plan: Likely secondary to COPD exacerbation versus CHF exacerbation (less likely) - provide oxygen as needed per protocol to titrate to 90%. BiPAP if needed. - IV steroids and IV diuresis with Lasix - continue breathing treatments - if no improvement, will consult pulmonology. Qualifiers: Respiratory failure complication: hypoxia Qualified Code(s): J96.01 - Acute respiratory failure with hypoxia (2) CHF (congestive heart failure) Current Visit: Yes Status: Acute Plan: Echo ordered, pending. - Though pro BNP a not very remarkable. - Will continue IV diuresis - will get cardiology consult if needed Qualifiers: Heart failure type: unspecified Heart failure chronicity: acute on chronic Qualified Code(s): I50.9 - Heart failure, unspecified (3) CKD (chronic kidney disease) Current Visit: No Status: Chronic Plan: Creatinine seems to be stable. Will continue to monitor. Avoid nephrotoxic medications Qualifiers: Chronic kidney disease stage: stage 3 (moderate) Qualified Code(s): N18.3 - Chronic kidney disease, stage 3 (moderate) (4) Hypertension Current Visit: No Status: Chronic Plan: Stable at this time. Will restart home medications once reconciled Qualifiers: Hypertension type: essential hypertension Qualified Code(s): I10 - Essential (primary) hypertension (5) Hyperlipidemia Current Visit: Yes Status: Acute - Plan DVT prophylaxis: Lovenox GI prophylaxis: None Diet: Heart healthy Disposition: Pending symptomatic improvement. - Advance Directives Does patient have a Living Will: No Does patient have a Durable POA for Healthcare: No
[2018-08-27] MEDS ORDERED: NA CHLORIDE 0.9% 500 ML ONE (16:27)
[2018-08-27] MEDS ORDERED: ONDANSETRON 4 MG/2 ML VIAL IV PRN (17:21)
[2018-08-27] MEDS: METHYLPREDNISOLONE 40 MG INJ IV SCH (17:44)
[2018-08-27] MEDS: LEVALBUTEROL 1.25 MG/3 ML NEB NEB SCH (20:00)
[2018-08-27] MEDS: IPRATROPIUM BROM 0.5MG/2.5ML NEB SCH (20:00)
[2018-08-27] MEDS: ACETAMINOPHEN 325 MG TABLET PO PRN (20:52)
[2018-08-28] MEDS: METHYLPREDNISOLONE 40 MG INJ IV SCH ×2 (01:01→08:45)
[2018-08-28] MEDS: IPRATROPIUM BROM 0.5MG/2.5ML NEB SCH ×4 (02:00→20:00)
[2018-08-28] MEDS: LEVALBUTEROL 1.25 MG/3 ML NEB NEB SCH ×4 (02:00→20:00)
[2018-08-28 05:19] LABS: Absolute Lymphocytes (CBC) 0.5 K/uL (0.7-4.9); Basophils % 0.3 % (0-1.3); Eosinophils % 0.1 % (0-4.4); Hematocrit 48.5 % (36.0-45.0); Lymphocytes % 8.1 % (15.3-44.8); MPV 10.5 fL (7.6-11.3); Monocytes % 1.1 % (3.3-12.3); RBC Red Blood Cell Count 5.38 M/uL (3.86-4.86)
[2018-08-28 05:33] LABS: Albumin 3.6 g/dL (3.4-5.0); Bilirubin Total 1.1 mg/dL (0.2-1.0); Potassium 5.2 mmol/L (3.5-5.1); Protein, Total 7.9 g/dL (6.4-8.2)
[2018-08-28 05:49] LABS: Blood Morphology Comment NOT SEEN (NOT SEEN); Platelet Estimate ADEQ
--- NOTE | 2018-08-28 07:18 | P.PN ---
Date of Service: 08/28/18 Hyperkalemia (K=5.2); will hold aldactone and resume lasix; may need to taper solumedrol as well if patient can tolerate. Recheck after lasix dose given today.
--- NOTE | 2018-08-28 07:44 | RAD REPORT ---
EXAM DESCRIPTION: RAD - Chest Pa And Lat (2 Views) - 08/28/2018 5:53 am CLINICAL HISTORY: Shortness of breath COMPARISON: August 27 TECHNIQUE: PA and lateral views of the chest were obtained. FINDINGS: The lungs are underinflated. Lateral view has substantial limitation due to large body hab itus. Interstitial markings are accentuated by shallow inspiration. No focal consolidation. Mild jorge alberto lure or volume overload could be masked in this setting. Heart size is upper normal, similar to comparison. Vasculature is mildly prominent. No pleural effus ion or pneumothorax seen. No acute bony finding noted. No aortic abnormality. IMPRESSION: Limited shallow inspiration film was not substantially different from prior imaging. Due to body habitus and shallow inspiration affects, early interstitial edema or infiltrate could be masked.
[2018-08-28] MEDS: FUROSEMIDE 40 MG TABLET PO SCH ×2 (08:40→17:00)
[2018-08-28] MEDS: DIGOXIN 0.125 MG TABLET PO SCH (08:41)
[2018-08-28] MEDS: CARVEDILOL 6.25 MG TAB PO SCH ×2 (08:41→21:33)
[2018-08-28] MEDS: APIXABAN 5 MG TABLET PO SCH ×2 (08:42→21:33)
[2018-08-28] MEDS: ALLOPURINOL 100 MG TAB PO SCH (08:49)
[2018-08-28] MEDS: ACETAMINOPHEN 325 MG TABLET PO PRN ×2 (08:50→16:51)
[2018-08-28] MEDS ORDERED: ENOXAPARIN 40 MG/0.4 ML SQ SCH (09:00)
[2018-08-28] MEDS ORDERED: predniSONE 20 MG TAB PO SCH (09:33)
--- NOTE | 2018-08-28 10:22 | P.PN ---
Subjective Date of Service: 08/28/18 Chief Complaint: Shortness of breath Subjective: Improving Patient seen and examined at bedside. No family at bedside. Chart reviewed and case discussed with nursing staff. Reports improved breathing, off BiPAP. Continues to be on 4 L oxygen Review of Systems 10-point ROS is otherwise unremarkable Physical Examination - Vital Signs Temperature: 97.4 F Blood Pressure: 121/65 Pulse: 98 Respirations: 20 Pulse Ox (%): 91 - Physical Exam General: Alert, In no apparent distress, Oriented x3, Obese HEENT: Atraumatic, PERRLA, EOMI Neck: Supple, JVD not distended Respiratory: Dull, Crackles/rales Cardiovascular: Regular rate/rhythm, Normal S1 S2 Gastrointestinal: Normal bowel sounds, No tenderness Musculoskeletal: No tenderness Integumentary: No rashes Neurological: Normal speech, Normal tone, Normal affect Lymphatics: No axilla or inguinal lymphadenopathy - Studies Laboratory Data (last 24 hrs) 08/27/18 10:33: PT 12.8 H, INR 1.09 08/27/18 10:33: WBC 5.0, Hgb 14.0, Hct 44.9, Plt Count 141 L 08/27/18 10:33: Sodium 144, Potassium 4.1, BUN 12, Creatinine 1.29, Glucose 108 H, Magnesium 2.2, Total Bilirubin 1.0, AST 22, ALT 32, Alkaline Phosphatase 51 Assessment And Plan - Current Problems (Diagnosis) (1) Acute respiratory failure Current Visit: Yes Status: Acute Plan: Likely secondary to COPD exacerbation versus CHF exacerbation (less likely) - provide oxygen as needed per protocol to titrate to 90%. BiPAP if needed. - IV diuresis with Lasix - convert IV steroids to oral - continue breathing treatments - if no improvement, will consult pulmonology. - social work consult for home oxygen Qualifiers: Respiratory failure complication: hypoxia Qualified Code(s): J96.01 - Acute respiratory failure with hypoxia (2) CHF (congestive heart failure) Current Visit: Yes Status: Acute Plan: Echo ordered, pending. - Though pro BNP a not very remarkable. - Will continue IV diuresis - will get cardiology consult if needed Qualifiers: Heart failure type: unspecified Heart failure chronicity: acute on chronic Qualified Code(s): I50.9 - Heart failure, unspecified (3) CKD (chronic kidney disease) Current Visit: No Status: Chronic Plan: Creatinine seems to be stable. Will continue to monitor. Avoid nephrotoxic medications Qualifiers: Chronic kidney disease stage: stage 3 (moderate) Qualified Code(s): N18.3 - Chronic kidney disease, stage 3 (moderate) (4) Hypertension Current Visit: No Status: Chronic Plan: Stable at this time. Will restart home medications once reconciled Qualifiers: Hypertension type: essential hypertension Qualified Code(s): I10 - Essential (primary) hypertension (5) Hyperlipidemia Current Visit: Yes Status: Acute - Plan DVT prophylaxis: Lovenox GI prophylaxis: None Diet: Heart healthy Disposition: Pending symptomatic improvement.
[2018-08-28 11:31] LABS: Potassium 4.4 mmol/L (3.5-5.1)
[2018-08-28] MEDS: DOCUSATE NA 100 MG CAP PO SCH ×2 (11:40→21:33)
[2018-08-28] MEDS: ATORVASTATIN 20 MG TAB PO SCH (21:33)
[2018-08-29] MEDS: IPRATROPIUM BROM 0.5MG/2.5ML NEB SCH ×4 (02:00→19:45)
[2018-08-29] MEDS: LEVALBUTEROL 1.25 MG/3 ML NEB NEB SCH ×4 (02:00→19:45)
[2018-08-29 06:04] LABS: Absolute Lymphocytes (CBC) 1.2 K/uL (0.7-4.9); Basophils % 0.3 % (0-1.3); Hematocrit 43.6 % (36.0-45.0); Lymphocytes % 11.3 % (15.3-44.8); MPV 10.7 fL (7.6-11.3); RBC Red Blood Cell Count 4.84 M/uL (3.86-4.86)
[2018-08-29 06:26] LABS: Albumin 3.4 g/dL (3.4-5.0); Bilirubin Total 0.8 mg/dL (0.2-1.0); Magnesium 2.4 mg/dL (1.8-2.4); Phosphorus 4.1 mg/dL (2.5-4.9); Potassium 4.7 mmol/L (3.5-5.1); Protein, Total 7.1 g/dL (6.4-8.2)
[2018-08-29] MEDS: ACETAMINOPHEN 325 MG TABLET PO PRN (07:25)
--- NOTE | 2018-08-29 07:52 | EKG ---
Test Date: 2018-08-28 Test Time: 23:51:10 [employer]uel[employer] Handler: LUPIS MEASUREMENT RESULTS: Intervals: Rate: 78 AL: QRSD: 90 QT: 318 QTc: 362 [place]: P: AL: QRS: -18 T: 191 INTERPRETIVE STATEMENTS: Atrial fibrillation Low voltage QRS Possible Anterolateral infarct, age undetermined Abnormal ECG Compared to ECG 08/27/2018 12:49:43 Low QRS voltage now present Ventricular premature complex(es) no longer present Electronically Signed On 08-29-18 07:51:58 CDT by Sonu Tapia
--- NOTE | 2018-08-29 07:57 | EKG ---
Test Date: 2018-08-27 Test Time: 10:26:14 Pediatrics Physician: VANE MEASUREMENT RESULTS: Intervals: Rate: 106 MA: QRSD: 72 QT: 320 QTc: 425 [place]: P: MA: QRS: -38 T: 115 INTERPRETIVE STATEMENTS: Atrial fibrillation with rapid ventricular response Left axis deviation Anteroseptal infarct, age undetermined Abnormal ECG Compared to ECG 06/17/2018 12:14:30 Left-axis deviation now present Myocardial infarct finding still present Electronically Signed On 08-29-18 07:55:03 CDT by Sonu Tapia
[2018-08-29] MEDS: FUROSEMIDE 40 MG TABLET PO SCH ×2 (09:00→16:03)
[2018-08-29] MEDS: HOME MED 1 EA UNK (Fluticasone/Salmeterol [Advair 250-50 Diskus] 1 EACH) IH SCH ×2 (09:00→21:00)
[2018-08-29] MEDS: predniSONE 20 MG TAB PO SCH ×2 (10:12→21:13)
[2018-08-29] MEDS: CARVEDILOL 6.25 MG TAB PO SCH ×2 (10:12→21:13)
[2018-08-29] MEDS: APIXABAN 5 MG TABLET PO SCH ×2 (10:12→21:13)
[2018-08-29] MEDS: DOCUSATE NA 100 MG CAP PO SCH ×2 (10:12→21:12)
[2018-08-29] MEDS: ALLOPURINOL 100 MG TAB PO SCH (10:12)
[2018-08-29] MEDS: DIGOXIN 0.125 MG TABLET PO SCH (10:13)
--- NOTE | 2018-08-29 11:28 | P.PN ---
Subjective Date of Service: 08/29/18 Chief Complaint: Shortness of breath Subjective: Improving Patient seen and examined at bedside. No family at bedside. Chart reviewed and case discussed with nursing staff. Reports improved breathing, off BiPAP. Continues to be on 4 L oxygen Denies any chest pain, dizziness, headache, syncope/presyncope, GI or complaints. Patient does not have a conitnuos pulse ox at bedside. Order in from 08/27/2018. Review of Systems 10-point ROS is otherwise unremarkable Physical Examination - Vital Signs Temperature: 97.8 F Blood Pressure: 100/70 Pulse: 86 Respirations: 16 Pulse Ox (%): 95 - Physical Exam General: Alert, In no apparent distress, Oriented x3, Obese HEENT: Atraumatic, PERRLA, EOMI Neck: Supple, JVD not distended Respiratory: Clear to auscultation bilaterally, Diminished Cardiovascular: Regular rate/rhythm, Normal S1 S2 Gastrointestinal: Normal bowel sounds, No tenderness Musculoskeletal: No tenderness Integumentary: No rashes Neurological: Normal speech, Normal tone, Normal affect Lymphatics: No axilla or inguinal lymphadenopathy Assessment And Plan - Current Problems (Diagnosis) (1) Acute respiratory failure Current Visit: Yes Status: Acute Plan: Likely secondary to COPD exacerbation versus CHF exacerbation (less likely) - provide oxygen as needed per protocol to titrate to 88-90%. She continues to require oxygen. - Continue diuresis with Lasix - convert IV steroids to oral - continue breathing treatments - if no improvement, will consult pulmonology. - social work consult for home oxygen. Unfortunately, she has no insurance or resources and she will not be able to get home oxygen, per . Qualifiers: Respiratory failure complication: hypoxia Qualified Code(s): J96.01 - Acute respiratory failure with hypoxia (2) CHF (congestive heart failure) Current Visit: Yes Status: Acute Plan: Echo ordered, pending. - Though pro BNP a not very remarkable. - Will continue IV diuresis Qualifiers: Heart failure type: unspecified Heart failure chronicity: acute on chronic Qualified Code(s): I50.9 - Heart failure, unspecified (3) CKD (chronic kidney disease) Current Visit: No Status: Chronic Plan: Creatinine seems to be stable and at baseline. Will continue to monitor. Avoid nephrotoxic medications Qualifiers: Chronic kidney disease stage: stage 3 (moderate) Qualified Code(s): N18.3 - Chronic kidney disease, stage 3 (moderate) (4) Hypertension Current Visit: No Status: Chronic Plan: Stable at this time. Will restart home medications once reconciled Qualifiers: Hypertension type: essential hypertension Qualified Code(s): I10 - Essential (primary) hypertension (5) Hyperlipidemia Current Visit: Yes Status: Acute (6) Atrial fibrillation by electrocardiogram Current Visit: Yes Status: Acute Plan: New diagnosis? along with cardiac pauses noted overnight - Cardiology consulted. - Pending ECHO and stress test today. - Plan DVT prophylaxis: Lovenox GI prophylaxis: None Diet: Heart healthy Disposition: Pending symptomatic improvement and weaning off oxygen.
--- NOTE | 2018-08-29 12:45 | CON ---
History Of Present Illness: Mrs. Kumar came to the hospital because of progressively worsening short ness of breath. She has orthopnea, pedal edema, paroxysmal nocturnal dyspnea, and dyspnea on exertio n at just 10 feet. Apparently, it has been there for a couple of years, but getting progressively wo rse. She is under the care of her construction craft laborer, Dr. Montoya, in [place] and is on a medication regimen that would suggest she has systolic congestive heart failure. She also notes that when she exerts he rself and is out of breath, her chest gets tight. Medications: Outpatient medications are spironolactone, simvastatin, Lasix 80 b.i.d., digoxin 0.125, Eliquis 5 b.i.d., Advair Diskus, Coreg 6.25 b.i.d., allopurinol 100 mg once a day. Allergies: SHE IS ALLERGIC TO ADHESIVE TAPES. Social History: She uses no tobacco, no alcohol, no illegal drugs. Physical Examination: General: She appears to be stated age of 53, 5 feet 9 inches, 324 pounds, not in distress. Lungs: Clear. Heart: Within normal limits. Abdomen: Soft. Extremities: 1 to 2+ edema, pitting. Distal pulses are palpable. Diagnostic Studies: Electrocardiogram shows atrial fibrillation, possible anterolateral infarct. At [facility] fibrillation was also present in June of this year, and we believe the atrial fib is chronic an d the reason for her to be on the Eliquis. Impression: The patient may well have underlying coronary heart disease, causing this. I will recom mend to do a nuclear stress test. If it is abnormal, we will consider doing a heart catheterization or perhaps sending her back to Dr. Montoya for heart catheterization. We will do a nuclear stress test a nd echo. Continue the Eliquis and try to see if we can make any improvement on her symptoms of heart failure. If she has severe coronary heart disease, that is one possible explanation for the very po or control of her symptoms. SH/MODL Voice ID: [id number] Report ID: [id number]
--- NOTE | 2018-08-29 12:45 | ECHO ---
HEIGHT: 5 ft 9 in WEIGHT: 324 lb 0 oz DATE OF STUDY: 08/29/[address]: Marycarmen Anderson MD 2-DIMENSIONAL: YES M.MODE: YES DOPPLER: YES COLOR FLOW: YES TDS: NO PORTABLE: NO DEFINITY: NO BUBBLE STUDY: NO DIAGNOSIS: CONGESTIVE HEART FAILURE/ SHORTNESS OF BREATH CARDIAC HISTORY: CATHERIZATION: NO SURGERY: NO PROSTHETIC VALVE: NO PACEMAKER: NO MEASUREMENTS (cm) DIASTOLIC (NORMALS) SYSTOLIC (NORMALS) IVSd 1.4 (0.6-1.2) LA Diam 3.9 (1.9-4.0) LVEF 77% LVIDd 4.9 (3.5-5.7) LVIDs 2.6 (2.0-3.5) %FS 46% LVPWd 1.4 (0.6-1.2) Ao Diam 2.7 (2.0-3.7) 2 DIMENSIONAL ASSESSMENT: RIGHT ATRIUM: NORMAL LEFT ATRIUM: DILATED RIGHT VENTRICLE: NORMAL LEFT VENTRICLE: LEFT VENTRICULAR HYPERTROPHY TRICUSPID VALVE: NORMAL MITRAL VALVE: NORMAL PULMONIC VALVE: NORMAL AORTIC VALVE: NORMAL PERICARDIAL EFFUSION: NONE AORTIC ROOT: NORMAL LEFT VENTRICULAR WALL MOTION: NORMAL. DOPPLER/COLOR FLOW: IMPAIRED LEFT VENTRICULAR RELAXATION. MILD MITRAL REGURGITATION. COMMENTS: NORMAL LEFT VENTRICULAR EJECTION FRACTION. DILATED LEFT ATRIUM. LEFT VENTRICULAR HYPERTROPHY. IMPAIRED LEFT VENTRICULAR RELAXATION. MILD MITRAL REGURGITATION. TECHNOLOGIST: JAVIER FLORIAN
[2018-08-29] MEDS: ATORVASTATIN 20 MG TAB PO SCH (21:13)
[2018-08-30] MEDS: IPRATROPIUM BROM 0.5MG/2.5ML NEB SCH ×4 (02:00→19:45)
[2018-08-30] MEDS: LEVALBUTEROL 1.25 MG/3 ML NEB NEB SCH ×4 (02:00→19:45)
[2018-08-30 06:25] LABS: Absolute Lymphocytes (CBC) 0.9 K/uL (0.7-4.9); Basophils % 0.4 % (0-1.3); Eosinophils % 0.2 % (0-4.4); Lymphocytes % 13.3 % (15.3-44.8); Monocytes % 6.1 % (3.3-12.3); RBC Red Blood Cell Count 4.85 M/uL (3.86-4.86)
[2018-08-30 06:42] LABS: Albumin 3.4 g/dL (3.4-5.0); Bilirubin Total 0.7 mg/dL (0.2-1.0); Potassium 5.3 mmol/L (3.5-5.1); Protein, Total 6.9 g/dL (6.4-8.2)
[2018-08-30] MEDS ORDERED: REGADENOSON 0.4 MG/5 ML SYR IV ONE (08:35)
[2018-08-30] MEDS: HOME MED 1 EA UNK (Fluticasone/Salmeterol [Advair 250-50 Diskus] 1 EACH) IH SCH ×2 (09:00→20:35)
[2018-08-30] MEDS: DOCUSATE NA 100 MG CAP PO SCH ×2 (09:53→20:32)
[2018-08-30] MEDS: CARVEDILOL 6.25 MG TAB PO SCH ×2 (09:53→20:33)
[2018-08-30] MEDS: FUROSEMIDE 40 MG TABLET PO SCH ×2 (09:54→17:09)
[2018-08-30] MEDS: APIXABAN 5 MG TABLET PO SCH ×2 (09:54→20:32)
[2018-08-30] MEDS: ALLOPURINOL 100 MG TAB PO SCH (09:54)
[2018-08-30] MEDS: predniSONE 20 MG TAB PO SCH ×2 (09:54→20:32)
[2018-08-30] MEDS: DIGOXIN 0.125 MG TABLET PO SCH (09:55)
--- NOTE | 2018-08-30 09:59 | RAD REPORT ---
EXAM DESCRIPTION: NM - Rest Stress Cardiac Imaging - 08/30/2018 9:27 am CLINICAL HISTORY: Chest pain COMPARISON: None. TECHNIQUE: The patient was administered 10.6 mCi of Tc 99m Sestamibi prior to resting SPECT imaging of the heart. The patient was then administered 30.6 mCi of Tc 99m Sestamibi following exercise or ph armacologic stress. Multiplanar SPECT images were reviewed. FINDINGS: The end diastolic volume is 107 ml, the end systolic volume is 52 ml, and the ejection fra ction is 51 %. No stress-induced ischemic changes identified. Minimal diminished activity at the anteroseptal apex a nd in the inferolateral bases show no change between rest and stress imaging. Attenuation artifacts a re favored over scarring. IMPRESSION: No stress-induced ischemic change. Anteroseptal apex and inferolateral base fixed defects favored to be attenuation artifact rather than scarring. End-diastolic volume is 107 mL with 51% ejection fraction.
[2018-08-30] MEDS: ACETAMINOPHEN 325 MG TABLET PO PRN (10:04)
--- NOTE | 2018-08-30 12:07 | TREADPHA ---
DX: CHEST PAIN Date of Study: 08/30/2018 Ht: 5 9 Wt: 324 lb 0 oz Consulting Physician: BRITTANI MEDICATIONS: TYLENOL, ZYLOPRIM, LIPITOR, ELIQUIS, COREG, LANOXIN, LASIX HISTORY: 53 YEAR OLD FEMALE WITH COMPLAINTS OF CHEST PAIN. HISTORY OF CONGESTIVE HEART FAILURE, KIDENY DISEASE, COPD, GOUT, HYPERLIPIDEMIA, HYPERTENSION, SLEEP APNEA, ATRIAL FIBRILLATION, NON SMOKER, NON DRINKER. PHYSICIAL EXAMINATION: RESTING B.P.: 126/77 RESTING H.R.: 86 RESTING EKG: ATRIAL FIBRILLATION PROTOCOL: LEXISCAN EXERCISE TIME: 3:30 B.P. AT [place]AK STRESS: 110/72 IMPRESSION: LEXISCAN INJECTED, FOLLOWED BY CARDIOLITE PER PROTOCOL. SEE NUCLEAR MEDICINE REPORT. NO SUPRAVENTRICULAR TACHYCARDIA, VENTRICULAR TACHYCARDIA OR PREMATURE ATRIAL COMPLEXES. FREQUENT PREMATURE VENTRICULAR COMPLEXES THROUGHOUT TEST. PATIENT REPORTED NO CHEST PAIN.
--- NOTE | 2018-08-30 14:54 | EKG ---
Test Date: 2018-08-27 Test Time: 12:49:43 Safety Relief Valve Technician: VANE MEASUREMENT RESULTS: Intervals: Rate: 96 LA: QRSD: 74 QT: 332 QTc: 419 [place]: P: LA: QRS: -36 T: 146 INTERPRETIVE STATEMENTS: Atrial fibrillation with premature ventricular or aberrantly conducted complexes Left axis deviation Anteroseptal infarct, age undetermined ST & T wave abnormality, consider lateral ischemia or digitalis effect Abnormal ECG Compared to ECG 08/27/2018 10:26:14 Ventricular premature complex(es) now present ST (T wave) deviation now present Possible ischemia now present Myocardial infarct finding still present Electronically Signed On 08-30-18 14:48:00 CDT by Wayne Castano
--- NOTE | 2018-08-30 17:12 | PN ---
Date of Progress Note: 08/30/2018 Subjective: The patient is seen and examined. Chart was reviewed and case discussed with RN and Dr. Castano. The patient had cardiac stress test today. Results were discussed with the patient. The patient reports shortness of breath, getting up from the chair, going to the bathroom. Medications list reviewed. Objective: Vital Signs: Temperature 97.1, heart rate 82, blood pressure 102/56 , respirations 20, O2 94% on 1 L via nasal cannula. General: Awake, alert, oriented x3. Morbidly obese female. CV: S1, S2. Regular rate and rhythm. Peripheral pulses present. Respiratory: Diminished breath sounds. No wheezing. No stridor. Gastrointestinal: Abdomen is soft, nontender, nondistended. Positive bowel sounds. Extremities: No clubbing or cyanosis. Trace edema. Neurologic: Nonfocal. Laboratory Data: Sodium 142, potassium 5.3, chloride 101, CO2 38, BUN 14, creatinine 1.13, glucose 110, calcium 9.1, albumin 3.4. WBC 7.1, H and H 13.6 and 44, platelets 136. Neutrophils 80%. Cardiac nuclear stress test shows no stress-induced ischemia. Interseptal apex and inferior lateral based fixed defects favored to be attenuation and artifact rather than scarring. Pharmacological stress test shows no ventricular tachycardia. No SVT. No premature atrial complexes or frequent premature ventricular complexes throughout the test. No chest pain. Echocardiogram shows EF of 77%, left ventricular hypertrophy. Assessment And Plan: A 53-year-old female with, 1. Acute respiratory failure, likely secondary to chronic obstructive pulmonary disease exacerbation and possibly congestive heart failure exacerbation. We will continue supplemental O2. Titrate O2 to 88-91%. The patient is currently on 2 L via nasal cannula. Continue diuretics. The patient has negative fluid balance. The patient unfortunately does not have insurance or resources for home O2 per Social Work. 2. Acute chronic obstructive pulmonary disease exacerbation. Continue nebulizer treatments, p.o. steroids, supplemental O2 as needed. The patient is still having significant shortness of breath with minimal exertion. 3. Acute diastolic heart failure exacerbation. Echocardiogram shows EF of 77% . Continue diuretics. 4. Chronic kidney disease stage 3. Creatinine at baseline. We will continue to monitor. 5. Hyperkalemia. We will give Kayexalate and monitor. 6. Atrial fibrillation. The patient is on blood thinners. The patient had echocardiogram and stress test done, which were negative. 7. Hypertensive heart disease. 8. Mixed hyperlipidemia. Continue medications. 9. Essential hypertension, stable. 10. Morbid obesity. BMI of 47. 11. Deep venous thrombosis prophylaxis with eliquis Plan: Continue wean off oxygen daily. Room air sat. /SONAL Voice ID: [id number] Report ID: [id number] JAROCHO
[2018-08-30] MEDS: ATORVASTATIN 20 MG TAB PO SCH (20:32)
[2018-08-31] MEDS: LEVALBUTEROL 1.25 MG/3 ML NEB NEB SCH ×4 (01:40→20:40)
[2018-08-31] MEDS: IPRATROPIUM BROM 0.5MG/2.5ML NEB SCH ×4 (01:40→20:40)
[2018-08-31] MEDS: DIGOXIN 0.125 MG TABLET PO SCH (08:54)
[2018-08-31] MEDS: CARVEDILOL 6.25 MG TAB PO SCH ×2 (08:55→21:36)
[2018-08-31] MEDS: DOCUSATE NA 100 MG CAP PO SCH ×2 (08:55→21:36)
[2018-08-31] MEDS: ALLOPURINOL 100 MG TAB PO SCH (08:55)
[2018-08-31] MEDS: APIXABAN 5 MG TABLET PO SCH ×2 (08:56→21:36)
[2018-08-31] MEDS: predniSONE 20 MG TAB PO SCH ×2 (08:56→21:36)
[2018-08-31] MEDS: HOME MED 1 EA UNK (Fluticasone/Salmeterol [Advair 250-50 Diskus] 1 EACH) IH SCH (08:59)
[2018-08-31] MEDS ORDERED: MAGNESIUM CITRATE 300 ML BOT PO ONE (09:00)
[2018-08-31] MEDS: FUROSEMIDE 40 MG TABLET PO SCH ×2 (10:06→17:33)
--- NOTE | 2018-08-31 11:49 | PN ---
Ms. Kumar is a 53-year-old woman was seen by Dr. Tapia on 08/29/2018, for congestive heart failure. Echocardiogram that was done showed diastolic dysfunction with an ejection fraction 77%. Stress shereen t that was done yesterday was negative for ischemia. Reports were discussed with Dr. Anderson. The [facility] sees Dr. Montoya as an outpatient. We agree with her present management should she needs to go back and see Dr. Montoya in the near future. She can go home from our standpoint. ROYA/SONAL Voice ID: [id number] Report ID: [id number]
--- NOTE | 2018-08-31 12:12 | P.CNS ---
Date of Consult: 08/31/18 Reason for Consult: Respiratory distress Chief Complaint: Shortness of breath History of Present Illness: Patient is 53 years of age well known to me with a history of COPD patient does take Advair from the [facility] and is compliant former smoker history of sleep apnea noncompliant she has become progressively worse worse in the past 2 weeks also has some lower extremity edema associated with cough patient is morbidly obese Allergies Adhesives Allergy (Uncoded 05/27/16 01:54) Unknown Home Medications: Allopurinol [Zyloprim] 100 mg PO DAILY 08/27/18 Apixaban [Eliquis] 5 mg PO BID 08/27/18 Carvedilol [Coreg] 6.25 mg PO BID 08/27/18 Digoxin [Digitek] 125 mcg PO DAILY 08/27/18 Fluticasone/Salmeterol [Advair 250-50 Diskus] 1 each IH BID 08/27/18 Furosemide [Lasix] 80 mg PO BID 08/27/18 Simvastatin 40 mg PO BEDTIME 08/27/18 Spironolactone [Aldactone] 25 mg PO DAILY 08/27/18 - Past Medical/Surgical History Diabetic: No -: CHF -: CKD3 -: COPD -: HTN -: HLD -: Sleep apnea non compliant - Social History Smoking Status: Former smoker Alcohol use: Yes CD- Drugs: No Caffeine use: No Place of Residence: Home Review of Systems General: Weakness Respiratory: Cough, Shortness of Breath Cardiovascular: Edema Gastrointestinal: Diarrhea (Chronic diarrhea) Physical Examination Temp Pulse Resp BP Pulse Ox 97.2 F 87 18 113/66 95 08/31/18 08:14 08/31/18 10:06 08/31/18 08:14 08/31/18 10:06 08/31/18 08:14 General: Alert, In no apparent distress, Oriented x3 Neck: Supple Respiratory: Clear to auscultation bilaterally, Diminished Cardiovascular: No edema, Regular rate/rhythm, Normal S1 S2 Gastrointestinal: Normal bowel sounds, Soft and benign - Problems (1) COPD exacerbation Current Visit: Yes Status: Acute Plan: Patient is 53 years of age with a history of COPD admitted with worsening dyspnea she former smoker patient is on Advair history of sleep apnea noncompliant patient has no evidence of stress-induced ischemia possible diastolic dysfunction chest x-rays otherwise clear blood gases pending patient is on Lasix at home continue with the nebulized bronchodilators and steroids patient does not have insurance right now will evaluate for home O2. I have advised her to also use a CPAP in fact also advised her to bring the CPAP from home in use it while she is in the hospital
[2018-08-31 12:42] LABS: Arterial Blood Carboxyhemoglob 1.6 % (0-1.5); Blood Gas Oxyhemoglobin 89.2 % (94-97); Blood O2 Saturation 91.1 % (92-98.5)
--- NOTE | 2018-08-31 19:10 | PN ---
Date of Progress Note: 08/31/2018 Subjective: The patient is seen and examined. Chart was reviewed and case discussed with RN and Dr. Connolly. The patient continues to be hypoxic. She was 88% on 1 L and dropped down to 84% with mov ing out of the chair towards the door. Medications List: Reviewed. Objective: Vital Signs: Temperature 97.2, heart rate 86, blood pressure 102/64, respirations 18, O2 saturation 95% on 2 L via nasal cannula. GENERAL: Awake, alert, oriented x3. Morbidly obese female. CV: S1, S2, irregularly irregular. Peripheral pulses are weak. Respiratory: Diminished breath sounds. No wheezing or stridor. Gastrointestinal: Abdomen is soft, nontender, nondistended. Positive bowel sounds. Extremities: No clubbing or cyanosis. Trace pedal edema. Neurologic: Nonfocal. Laboratory Data: ABG; pH 7.42, pCO2 is 63.1, PO2 is 58, bicarb is 39.8. BMP is pending. Assessment And Plan: A 53-year-old female with, 1.Acute respiratory failure, likely secondary to chronic obstructive pulmonary disease exacerbation and congestive heart failure. The patient is difficult to wean off O2, dropped down to 84% with mini mal activity, was 88% with [address] Connolly's input. Continue diuretics. The patient does not have funding for home O2. She does have CPAP at home. 2.Acute chronic obstructive pulmonary disease exacerbation. Continue with nebulizer treatments, inh chantel, supplemental O2, still very hypoxic with minimal exertion. ABG shows hypoxia with hypercapnia with renal adjustment in view of compensation. 3.Acute on chronic diastolic heart failure exacerbation. EF is 77%. We will continue diuretics. M onitor I's and O's. Free fluid restriction. 4.Chronic kidney disease stage 3. Creatinine is at baseline. We will continue to monitor. 5.Hyperkalemia secondary to above. We will repeat level in a.m. 6.Atrial fibrillation chronic. Continue blood thinners. 7.Hypertensive heart disease. 8.Mixed hyperlipidemia. Continue statin. 9.Essential hypertension, stable on medications. 10.Morbid obesity. BMI of 47. Recommend outpatient evaluation for bariatric surgery. 11.Deep venous thrombosis prophylaxis. The patient is on Eliquis. Plan: Pulmonology is requesting CPAP to be brought in from home. The patient has been counseled reg arding compliance with CPAP. Discharge once cleared by Pulmonology and hypoxia improves. SA/MODL Voice ID: [id number] Report ID: [id number]
[2018-08-31] MEDS: ATORVASTATIN 20 MG TAB PO SCH (21:36)
[2018-09-01] MEDS: IPRATROPIUM BROM 0.5MG/2.5ML NEB SCH ×4 (01:55→20:00)
[2018-09-01] MEDS: LEVALBUTEROL 1.25 MG/3 ML NEB NEB SCH ×4 (01:55→20:00)
[2018-09-01 05:38] LABS: Absolute Lymphocytes (CBC) 1.2 K/uL (0.7-4.9); Basophils % 0.5 % (0-1.3); Eosinophils % 0.1 % (0-4.4); Hematocrit 45.8 % (36.0-45.0); Lymphocytes % 14.7 % (15.3-44.8); MPV 10.2 fL (7.6-11.3); Monocytes % 10.1 % (3.3-12.3); RBC Red Blood Cell Count 5.13 M/uL (3.86-4.86)
[2018-09-01 06:03] LABS: Albumin 3.5 g/dL (3.4-5.0); Bilirubin Total 0.9 mg/dL (0.2-1.0); Magnesium 2.4 mg/dL (1.8-2.4); Phosphorus 5.2 mg/dL (2.5-4.9); Potassium 4.4 mmol/L (3.5-5.1); Protein, Total 7.2 g/dL (6.4-8.2)
[2018-09-01] MEDS: APIXABAN 5 MG TABLET PO SCH ×2 (08:32→21:36)
[2018-09-01] MEDS: FUROSEMIDE 40 MG TABLET PO SCH ×2 (08:32→17:00)
[2018-09-01] MEDS: DOCUSATE NA 100 MG CAP PO SCH ×2 (08:32→21:36)
[2018-09-01] MEDS: CARVEDILOL 6.25 MG TAB PO SCH ×2 (08:32→21:36)
[2018-09-01] MEDS: predniSONE 20 MG TAB PO SCH (08:32)
[2018-09-01] MEDS: ALLOPURINOL 100 MG TAB PO SCH (08:32)
--- NOTE | 2018-09-01 12:36 | PN ---
Date of Progress Note: 09/01/2018 Subjective: The patient seen and examined. Chart reviewed and case discussed with RN and Dr. Brandon perez. The patient continues to be very short of breath, especially with minimal exertion. The patient has been noncompliant with CPAP. She requested her daughter to bring in her CPAP; however, daughter has not brought in the equipment. Medications: List reviewed. Physical Examination: Vital Signs: Temperature 97.8, heart rate 86, blood pressure 111/59, respirations 18, O2 94% on room air. General: Awake, alert, oriented x3. Morbidly obese female. CV: S1 and S2. Irregularly irregular. Peripheral pulses present. Respiratory: Diminished breath sounds. No wheezing or stridor. Gastrointestinal: Abdomen is soft, nontender, nondistended. Positive bowel sounds. Extremities: No clubbing, cyanosis, or edema. Neurologic: Nonfocal. Laboratory Data: Sodium 139, potassium 4.4, chloride 95, CO2 42, BUN 24, creatinine 1.21, glucose 12 9, calcium 9.6, phosphorus 5.2, magnesium 2.4. WBC 8.5, H and H 14.3 and 45.8, platelets 155, neutro phils 74%. Assessment And Plan: A 53-year-old female with: 1.Acute respiratory failure secondary to chronic obstructive pulmonary disease and congestive heart failure exacerbation. The patient is doing somewhat better, still hypoxic with minimal exertion. Ap preciate Dr. Connolly's input. The patient condition should improve with compliant use of CPAP. The patient unfortunately is unfounded, cannot be set up with home O2. We recheck room air sats this mo rning showed to be 85%; however, currently documented at 94%. We will reassess. 2.Acute chronic obstructive pulmonary disease exacerbation. Continue with nebulizer treatments, sup plemental O2. Currently on p.o. steroids, improving. 3.Acute on chronic diastolic heart failure exacerbation, ejection fraction 77%, diuresing well. Franco ma is minimal to none. We will continue to monitor fluid balance. Continue diuretics, daily weights . 4.Chronic kidney disease stage 3. Creatinine is around baseline. No NSAIDs. Continue to monitor l evels. 5.Hyperkalemia, corrected. We will continue to monitor. 6.Atrial fibrillation, chronic. Continue anticoagulation. 7.Hypertensive heart disease. 8.Mixed hyperlipidemia. We will continue on statin. 9.Essential hypertension, stable. 10.Morbid obesity, BMI 47. 11.Deep venous thrombosis prophylaxis with Eliquis. Plan: We will reassess room air saturations. The patient may need to be discharged without home O2 as she has no funding for setup. She will need education of breathing techniques for COPD and she wi ll have to avoid exertional activity. She needs to be more compliant with her CPAP. /SONAL Voice ID: [id number] Report ID: [id number]
--- NOTE | 2018-09-01 13:22 | P.PN ---
Subjective Date of Service: 09/01/18 Chief Complaint: COPD exacerbation Subjective: Improving (Patient is doing somewhat better still a shortness of breath on mild exertion hypoxic) Review of Systems General: Weakness Respiratory: Cough, Shortness of Breath Physical Examination - Vital Signs Temperature: 97 F Blood Pressure: 149/59 Pulse: 96 Respirations: 20 Pulse Ox (%): 99 - Physical Exam General: Alert, In no apparent distress, Oriented x3 HEENT: Atraumatic Neck: Supple Respiratory: Expiratory wheezes Cardiovascular: No edema, Regular rate/rhythm Assessment & Plan - Problems (Diagnosis) (1) COPD exacerbation Current Visit: Yes Status: Acute Plan: Patient is 53 years of age admitted with COPD exacerbation is also hypoxic may qualify for home O2 patient is noncompliant with her CPAP machine will need another sleep study as an out patient is hypoxic hypercapnic continue with prednisone patient does have Advair at home does not have insurance at this moment of ordered I have advised her to follow up in my office
[2018-09-01] MEDS: ATORVASTATIN 20 MG TAB PO SCH (21:36)
[2018-09-02] MEDS: IPRATROPIUM BROM 0.5MG/2.5ML NEB SCH ×3 (01:45→15:41)
[2018-09-02] MEDS: LEVALBUTEROL 1.25 MG/3 ML NEB NEB SCH ×3 (01:45→15:41)
[2018-09-02 05:56] LABS: Absolute Lymphocytes (CBC) 2.3 K/uL (0.7-4.9); Basophils % 0.4 % (0-1.3); Eosinophils % 0.9 % (0-4.4); Hematocrit 46.2 % (36.0-45.0); Lymphocytes % 25.7 % (15.3-44.8); Monocytes % 6.3 % (3.3-12.3); RBC Red Blood Cell Count 5.17 M/uL (3.86-4.86)
[2018-09-02 05:59] LABS: Potassium 3.7 mmol/L (3.5-5.1)
[2018-09-02] MEDS ORDERED: predniSONE 20 MG TAB PO SCH (09:00)
[2018-09-02] MEDS ORDERED: POTASSIUM CL SA 10 MEQ TAB PO ONE (09:00)
[2018-09-02] MEDS: APIXABAN 5 MG TABLET PO SCH (09:45)
[2018-09-02] MEDS: CARVEDILOL 6.25 MG TAB PO SCH (09:45)
[2018-09-02] MEDS: DOCUSATE NA 100 MG CAP PO SCH (09:46)
[2018-09-02] MEDS: ALLOPURINOL 100 MG TAB PO SCH (09:47)
--- NOTE | 2018-09-02 10:00 | P.PN ---
Subjective Date of Service: 09/02/18 Chief Complaint: COPD exacerbation Subjective: Improving (Doign well/ Now using CPAP) Review of Systems General: Weakness Respiratory: Shortness of Breath Physical Examination - Vital Signs Temperature: 97.1 F Blood Pressure: 100/70 Pulse: 94 Respirations: 16 Pulse Ox (%): 92 - Physical Exam General: Alert, Oriented x3 Neck: Supple Respiratory: Clear to auscultation bilaterally Assessment & Plan - Problems (Diagnosis) (1) COPD exacerbation Current Visit: Yes Status: Acute Plan: AW COPD exacerbatiopn. Poss discharge. Check RA ABG again. Advised to home CPAP. Will need OP S waldo. CW Gary. Dc on low dos epred F/u with in 2wks pt is on spironolacone and lasix
[2018-09-02 11:01] LABS: Arterial Blood Carboxyhemoglob 1.5 % (0-1.5); Blood Gas Oxyhemoglobin 85.7 % (94-97); Blood O2 Saturation 87.6 % (92-98.5)
[2018-09-02] MEDS: FUROSEMIDE 40 MG TABLET PO SCH ×2 (11:08→16:50)
--- NOTE | 2018-09-03 12:13 | DS ---
Date of Discharge: 09/02/2018 Consultants: Dr. Connolly with Pulmonology, Dr. Castano with Cardiology. Procedure: Cardiac stress test negative for any stress-induced ischemia on 08/30/2018. Admitting Diagnoses: 1.Acute respiratory failure. 2.Congestive heart failure. 3.Chronic kidney disease stage 3. 4.Essential hypertension. 5.Mixed hyperlipidemia. Discharge Diagnoses: 1.Acute respiratory failure, improving. 2.Acute chronic obstructive pulmonary disease exacerbation, improved. 3.Lkwbs-[id number] diastolic heart failure, EF 77%. 4.Chronic kidney disease stage 3. 5.Hyperkalemia, corrected. 6.Atrial fibrillation, chronic. 7.Hypertensive heart disease. 8.Mixed hyperlipidemia. 9.Morbid obesity, BMI of 47. 10.Essential hypertension, stable. Hospital Course: The patient is a 53-year-old morbidly obese female with history of heart failure, k idney disease, COPD, hypertension, hyperlipidemia, comes in with shortness of breath. The patient us ed to be on oxygen, however, lost her insurance, therefore no longer on oxygen. She does have sleep apnea and noncompliant with her CPAP machine. The patient was thought to have COPD exacerbation gilberto g with CHF exacerbation. The patient was started on diuresis. She responded well to treatment. She did have some mild electrolyte abnormalities including mild hyperkalemia, which was corrected. The patient is a chronic CO2 retainer, and her ABGs showed metabolic compensation for her chronic CO2 ret ention. Regarding her COPD, she was placed on nebulizer treatments and IV steroids, which were weane d down. The patient was seen by Dr. Connolly with Pulmonology. The patient unfortunately does quali fy for oxygen, however, does not have any funding. She is recommended to use her CPAP machine. As r ecommended, she will need to follow up with Dr. Connolyl with Pulmonology in his office next week in order to have repeat sleep study ordered; in the meantime to continue CPAP. She will need to also fo llow up with Dr. Castano with Cardiology. Cardiac stress test was done to rule out any cardiac-relat ed issues causing her symptoms. Stress test was negative. Echocardiogram showed diastolic dysfuncti on. The patient was able to ambulate, however, did get short of breath with exertion. She will need to avoid strenuous activity. She was taught on appropriate COPD breathing. EF was 77%. The patien t was then cleared for discharge. Activity: No strenuous activity. Medications: As per medication reconciliation list. Condition: Stable. Followup: Follow up with primary care physician in 2 to 3 days. Follow up with consultant technology, Dr. Franko estrada, in 2 weeks. Follow up with traffic engineering technician, Dr. Connolly, in 3 days. Return to ER for worsenin g condition. Diet: Low-sodium, free fluid restricted diet. Physical Examination: General: Awake, alert, oriented. A morbidly obese female. CV: S1, S2. Respiratory: Moving air well bilaterally. Abdomen: Soft, nontender, nondistended. Positive bowel sounds. Extremities: No clubbing, cyanosis, or edema. Neuro: Nonfocal. Total time spent discharging the patient was 39 minutes. /SONAL Voice ID: [id number] Report ID: [id number]
== END 2018-09-02 17:23 | disposition home or self-care (01) | DRG 189 ==
LOC: ER 10:11 → ERHOLD 15:14 → 2ND 17:18 → 4TH 09-01 20:46
PROVIDERS: ADMIT Family Medicine; ATTEND Family Medicine
DX: J96.01 Acute respiratory failure with hypoxia (principal); I50.33 Acute on chronic diastolic (congestive) heart failure; J44.1 Chronic obstructive pulmonary disease with (acute) exacerbation; I13.0 Hypertensive heart and chronic kidney disease with heart failure and stage 1 through stage 4 chronic kidney disease, or unspecified chronic kidney disease; Z68.43 Body mass index [BMI] 50.0-59.9, adult; I42.9 Cardiomyopathy, unspecified; N18.3 Chronic kidney disease, stage 3 (moderate); E78.2 Mixed hyperlipidemia; E87.5 Hyperkalemia; E66.01 Morbid (severe) obesity due to excess calories; I48.91 Unspecified atrial fibrillation; Z91.19 Patient's noncompliance with other medical treatment and regimen; G47.30 Sleep apnea, unspecified; Z79.01 Long term (current) use of anticoagulants; Z87.891 Personal history of nicotine dependence
CPT/HCPCS: 36415; 71045; 71046; 74018; 78452; 80048; 80053; 80076; 80162; 82805; 83735; 83880; 84100; 84484; 85025; 85610; 93005; 93017; 93306; 94760; 96374; 96375; 97116; 97163; 97530; 99285; A9500; J1160; J1940; J2785; J2920; J7512

== ENCOUNTER 2018-11-13 01:50 | Inpatient (IN) | payer SELFPAY ==
--- OUTSIDE RECORDS SUMMARY | 2018-11-13 01:52 | XMS REPORT ---
:1965 [facility] Address [address] [place] [address] Dr. Jay [address] [place] [id number] Care Team Providers Name Role Phone Unavailable Unavailable Unavailable Problems This patient has no known problems. Allergies, Adverse Reactions, Alerts This patient has no known allergies or adverse reactions. Medications This patient has no known medications.
--- OUTSIDE RECORDS SUMMARY | 2018-11-13 01:52 | XMS REPORT | Summary of Care ---
:1965 Author Organization [facility] - [facility] Address [address] [place] [address] Care Team Providers Name Role Phone Berkley Farfan MD Primary Care Provider Elisa Montoya MD Unavailable Reason for Visit Reason Comments Follow-up Annual Medical Records Request from [facility] Encounter Details Date Type Department Care Team Description 09/19/2018 Office Visit [facility] Elisa Montoya MD (HFpEF) heart failure with preserved ejection fraction (Primary Dx); Cardiology- [address] Chronic bronchitis, unspecified chronic bronchitis type; [address] [place] [address] KIMBERLY on CPAP; Drive, [address] [place] [phone] Allergies Active Allergy Reactions Severity Noted Date Comments Adhesive Tape-Silicones Itching, Rash 10/23/2014 documented as of this encounter (statuses as of 10/01/2018) Medications Medication Sig Dispensed Refills Start Date End Date Status budesonide-formoterol Inhale 2 Puffs 2 0 Active (SYMBICORT) 160-4.5 (two) times mcg/actuation inhaler daily. MULTIVITAMIN WITH Take by mouth. 0 Active MINERALS (MULTIVITAMIN & MINERAL FORMULA ORAL) colchicine (COLCRYS) 2 tabs po once 30 tablet 0 12/30/2016 Active 0.6 mg tablet PRN gout attack; Max 2 tabs per 24 hours betamethasone, Apply to 30 mL 1 05/27/2017 Active augmented, (DIPROLENE) area(s) 2 (two) 0.05 % times daily. lotionIndications: Seborrhea capitis ketoconazole 2 % Wash scalp with 120 mL 1 05/30/2017 Active shampooIndications: product twice Seborrhea capitis weekly traMADOL 50 mg tablet Take 1 tablet by 30 tablet 0 07/08/2017 Active mouth 2 (two) times daily as needed (moderate to severe pain). carvedilol 6.25 mg Take 1 tablet by 180 tablet 3 08/20/2017 Active tablet mouth 2 (two) times daily with meals. spironolactone 25 mg Take 1 tablet by 90 tablet 3 09/06/2017 Active tablet mouth daily. digoxin 125 mcg tablet Take 1 tablet by 90 tablet 3 11/09/2017 Active mouth daily. simvastatin 40 mg Take 1 tablet by 90 tablet 0 03/04/2018 Active tablet mouth at bedtime. apixaban 5 mg tablet Take 1 tablet by 180 tablet 3 03/21/2018 Active mouth 2 (two) times daily. KCL 20 mEq tablet Take 1 tablet by 30 tablet 0 03/30/2018 Active mouth daily. furosemide 80 mg tablet Take 1 tablet by 60 tablet 0 03/30/2018 Active mouth every morning and evening. allopurinol 100 mg Take 1 tablet by 90 tablet 0 05/25/2018 Active tabletIndications: mouth daily. Chronic gout without tophus, unspecified cause, unspecified site documented as of this encounter (statuses as of 10/01/2018) Active Problems Problem Noted Date Screening for colorectal cancer 07/27/2017 Overview: Added automatically from request for surgery [id number] Abnormal LFTs 07/22/2017 Overview: Positive anti smooth muscle (F actin) antibody test CKD (chronic kidney disease), stage III 07/22/2017 Chronic musculoskeletal pain 05/30/2017 Seborrhea capitis 05/30/2017 Gout 12/30/2016 Overview: Feet Prediabetes 11/05/2015 Essential hypertension 10/03/2015 Left heart failure 05/27/2015 KIMBELRY on CPAP 05/27/2015 Obesity 05/27/2015 Nonischemic cardiomyopathy 05/27/2015 SOB (shortness of breath) 10/23/2014 documented as of this encounter (statuses as of 10/01/2018) Immunizations Name Administration Dates Next Due Influenza Virus Vaccine Quad IM Multi-dose 6+ MO 12/29/2016 Pneumococcal Polysaccharide, PPSV23 (PNEUMOVAX) 12/29/2016 documented as of this encounter Social History Tobacco Use Types Packs/Day Years Used Date Former Smoker Smokeless Tobacco: Never Used Comments: quit 11 years ago Alcohol Use Drinks/Week oz/Week Comments No 0 Standard drinks or equivalent 0.0 Sex Assigned at Date Recorded Not on file Job Start Date Occupation Industry Not on file Not on file Not on file Travel History Travel Start Travel End No recent travel history available. documented as of this encounter Last Filed Vital Signs Vital Sign Reading Time Taken Comments Blood Pressure 99/68 09/19/2018 10:49 AM CDT Pulse 111 09/19/2018 10:49 AM CDT Temperature - - Respiratory Rate 19 09/19/2018 10:49 AM CDT Oxygen Saturation 86% 09/19/2018 10:49 AM CDT Inhaled Oxygen Concentration - - Weight 157.2 kg (346 lb 9.6 oz) 09/19/2018 10:49 AM CDT Height 175.3 cm (5' 9") 09/19/2018 10:49 AM CDT Body Mass Index 51.18 09/19/2018 10:49 AM CDT documented in this encounter Progress Notes Elisa Montoya MD - 09/19/2018 10:20 AM CDT CARDIOLOGY CLINIC NOTE 09/19/2018 Reason for Referral/Presenting Complaint: follow up for heart failure and Afib History of Present Illness: Danie Kumar is a 53 years old female with history of hypertension, sleep apnea on C-PAP, combined systolic and diastolic heart failure with normalized LVEF in 2017, persistent Afib, and obesity. In October 2014 she presented to [facility] ER with dyspnea and was transferred to [facility]. ECHO showed LVEF 40-45%. Left heart cath showed no coronary disease. Right heart cath showed elevated pulmonarypressure and wedge pressure. LVEF in 2017 normalized. In 2017 she was found to be in Afib. We started Eliquis. She has no bleeding. She is on digoxin and coreg for rate control. In 08/2018 she was admitted to [facility] for COPD and HF exacerbation. CXR was unremarkablealthough she had leg edema. Nuclear stress test was negative. She is here for O2 prescription. Feeling SOB all the time. Worsening leg edema with weight gain. Mild orthopnea. SpO2 86% on RA 09/19/2018. Past Medical History: Past Medical History: Diagnosis Date Asthma Cardiomyopathy CHF (congestive heart failure) Chronic musculoskeletal pain 05/30/2017 CKD (chronic kidney disease), stage III 07/22/2017 Gout 12/30/2016 Feet HTN (hypertension) Left heart failure 05/27/2015 Nonischemic cardiomyopathy 05/27/2015 Obesity Obesity 05/27/2015 KIMBERLY on CPAP KIMBERLY on CPAP 05/27/2015 Seborrhea capitis 05/30/2017 Current Medications: Current Outpatient Medications Medication Sig Dispense Refill allopurinol 100 mg tablet Take 1 tablet by mouth daily. 90 tablet 0 furosemide 80 mg tablet Take 1 tablet by mouth every morning and evening. 60 tablet 0 KCL 20 mEq tablet Take 1 tablet by mouth daily. 30 tablet 0 apixaban 5 mg tablet Take 1 tablet by mouth 2 (two) times daily. 180 tablet 3 simvastatin 40 mg tablet Take 1 tablet by mouth at bedtime. 90 tablet 0 digoxin 125 mcg tablet Take 1 tablet by mouth daily. 90 tablet 3 spironolactone 25 mg tablet Take 1 tablet by mouth daily. 90 tablet 3 carvedilol 6.25 mg tablet Take 1 tablet by mouth 2 (two) times daily with meals. 180 tablet 3 traMADOL 50 mg tablet Take 1 tablet by mouth 2 (two) times daily as needed ( moderate to severe pain). 30 tablet 0 ketoconazole 2 % shampoo Wash scalp with product twice weekly 120 mL 1 betamethasone, augmented, (DIPROLENE) 0.05 % lotion Apply to area(s) 2 (two ) times daily. 30 mL1 colchicine (COLCRYS) 0.6 mg tablet 2 tabs po once PRN gout attack; Max 2 tabs per 24 hours 30 tablet 0 MULTIVITAMIN WITH MINERALS (MULTIVITAMIN & MINERAL FORMULA ORAL) Take by mouth. budesonide-formoterol (SYMBICORT) 160-4.5 mcg/actuation inhaler Inhale 2 Puffs 2 (two) times daily. No current facility-administered medications for this visit. Allergies: Allergies Allergen Reactions Adhesive Tape-Silicones Itching and Rash Social History: Social History Socioeconomic History Marital status: Spouse name: Not on file Number of children: Not on file Years of education: Not on file Highest education level: Not on file Occupational History Not on file Social Needs Financial resource strain: Not on file Food insecurity: Worry: Not on file Inability: Not on file Transportation needs: Medical: Not on file Non-medical: Not on file Tobacco Use Smoking status: Former Smoker Smokeless tobacco: Never Used Tobacco comment: quit 11 years ago Substance and Sexual Activity Alcohol use: No Alcohol/week: 0.0 oz Drug use: No Sexual activity: Not on file Lifestyle Physical activity: Days per week: Not on file Minutes per session: Not on file Stress: Not on file Relationships Social connections: Talks on phone: Not on file Gets together: Not on file Attends worship service: Not on file Active member of club or organization: Not on file Attends meetings of clubs or organizations: Not on file Relationship status: Not on file Intimate partner violence: Fear of current or ex partner: Not on file Emotionally abused: Not on file Physically abused: Not on file Forced sexual activity: Not on file Other Topics Concern Not on file Social History Narrative 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 Family History Family History Problem Relation Age of Onset Breast Cancer Maternal Aunt Review of Systems: (-)=Negative,(+)=Positive General: (-) fever, (-) chills, (+) weight change, (+) dizziness, (+) fatigue Skin: (-) rash HEENT: (-) headache, (-) change in vision Neck: (-) difficulty swallowing Heme: negative Resp: (-) cough, (+) dyspnea on exertion Cardio: (-) chest pain, (-) palpitations, (-) syncope GI: (-) vomiting, (-) diarrhea : negative Endo: (-) diabetes, (-) thyroid disease Neuro: (-) numbness, (-) tingling, (-) weakness Back: (-) pain SHERINE: (-) muscle pain, (-) claudication Psych: (-) anxiety, (-) depression Physical Examination: BP 99/68 (BP Location: Right arm, Patient Position: Sitting, BP CUFF SIZE: Adult Large) | Pulse 111 | Resp 19 | Ht 5' 9" (1.753 m) | Wt 346 lb 9.6 oz ( 157.2 kg) | SpO2 (!) 86% | BMI 51.18 kg/m Constitutional: alert and oriented x 3 (person, place and date/time); no apparent distress, obese ENT: normocephalic atraumatic, supple, no lymphadenopathy, no bruits, no JVD Lungs: decreased breath sound bilaterally Cardiovascular: S1, S2 normal, irregular; no murmurs, rubs or gallops GI: soft; non-tender; distended; normoactive bowel sounds : not examined Musculoskeletal: Extremities: no clubbing, cyanosis, + pitting edema Skin: no rashes Neuro: no focal deficits Labs: CBC BMP PT/INR WBC (10*3/L) Date Value 07/08/2017 6.53 NA (mmol/L) Date Value 07/08/2017 144 SODIUM-Q (mmol/L) Date Value 08/12/2016 142 No results found for: PT PLT (10*3/L) Date Value 07/08/2017 189 K (mmol/L) Date Value 07/08/2017 4.9 POTASSIUM-Q (mmol/L) Date Value 08/12/2016 4.7 INR (no units) Date Value 10/29/2014 1.0 HGB (g/dL) Date Value 07/08/2017 13.9 BUN (mg/dL) Date Value 07/08/2017 13 UREA NITROGEN (BUN)-Q (mg/dL) Date Value 08/12/2016 39 (H) HCT (%) Date Value 07/08/2017 45.9 (H) CREATININE (mg/dL) Date Value 07/08/2017 1.30 (H) CREATININE-Q (mg/dL) Date Value 08/12/2016 1.54 (H) LIPID PROFILE GLUCOSE (mg/dL) Date Value 07/08/2017 108 GLUCOSE-Q (mg/dL) Date Value 08/12/2016 84 CHOL (mg/dL) Date Value 07/08/2017 151 TSH LDL CHOL (mg/dL) Date Value 07/08/2017 73 TSH (mIU/L) Date Value 07/08/2017 1.27 CARDIAC ENZYMES HDL (mg/dL) Date Value 07/08/2017 54 CK (U/L) Date Value 10/29/2014 292 (H) TRIG (mg/dL) Date Value 07/08/2017 121 LFTs CK-MB (ng/mL) Date Value 10/29/2014 1.01 AST(SGOT) (U/L) Date Value 07/23/2017 32 TROPONIN I (ng/mL) Date Value 10/29/2014 <0.012 ALT(SGPT) (U/L) Date Value 07/23/2017 46 No results found for: BNP EKG: Normal sinus rhythm. LAE. LVH. PVC. 08/12/2016--Afib with VR 82 bpm 07/23/2017--Afib with controlled VR. Non-specific ST-T abnormality Echocardiogram: 10/2014--LVEF 40-45%. Diastolic dysfunction. 2016--LVEF 50-55% Cardiac Cath: 10/2014 LHC: no CAD RHC: elevated PCWP and PAP. Low CI. 08/2018 [place] ECHO--Normal LVEF, LVH, mild MR Lexiscan nuc--negative EKG--Afib with RVR, VR 106 bpm CXR--clear HGB 14.4, K 3.7, Cr 1.42, K 4.7, Assessment/Plan: ICD-10-CM ICD-9-CM 1. (HFpEF) heart failure with preserved ejection fraction I50.30 428.9 2. Chronic bronchitis, unspecified chronic bronchitis type J42 491.9 3. KIMBERLY on CPAP G47.33 327.23 Z99.89 V46.8 4. Morbid obesity E66.01 278.01 Afib--Controlled VR. [id number] score 3. Continue Eliquis 5 mg BID. On digoxin and coreg. Given heryoung age, offered ALBERTA guided cardioversion. However she has no insurance. HFpEF--Recurrent volume overload. On high dose lasix. Continue spironolactone. Due to lack of insurance and reliable lab testing and follow up, uncomfortable to start metolazone. Will prescribe O2 2 LPM continuously. Cardiomyopathy--LVEF Normal now. HTN--BP is controlled. KIMBERLY--On C-PAP but not using it consistenly. RTC 6 months Elisa Montoya MD, FACC, FACP, YULISA Software Installer, Division of Cardiology [facility] documented in this encounter Plan of Treatment Health Maintenance Due Date Last Done Comments DTaP,Tdap,and Td Vaccines (1 - Tdap) 1982 MAMMOGRAM 05/27/2011 05/26/2010, 04/23/2010 PAP SMEAR 12/26/2012 12/26/2009 COLONOSCOPY 2013 Zoster Recombinant Vaccine (SHINGRIX) (1 2013 of 2) LUNG CANCER SCREEN: Recommended for age 0104/04/2018 55-80 with 30 + pack year history INFLUENZA VACCINE 11/06/2018 12/29/2016 PNEUMOCOCCAL 0-64 YEARS COMBINED SERIES Completed 12/29/2016 HEPATITIS C (HCV) SCREEN Completed 07/08/2017 documented as of this encounter Goals Goal Patient Goal Associated Recent Patient-Stated? Author Type Problems Progress lose 10 lbs General Yes Adolph, by next Berkley Rothman MD visit in 6 mos documented as of this encounter Results Not on filedocumented in this encounter Visit Diagnoses Diagnosis (HFpEF) heart failure with preserved ejection fraction - Primary Chronic bronchitis, unspecified chronic bronchitis type KIMBERLY on CPAP Obstructive sleep apnea (adult) (pediatric) Morbid obesity documented in this encounter
--- OUTSIDE RECORDS SUMMARY | 2018-11-13 01:52 | XMS REPORT | Summary of Care ---
:1965 Author Organization [facility] - Health Address [address] [place] [address] Care Team Providers Name Role Phone Berkley Farfan MD Primary Care Provider Elisa Montoya MD Unavailable Encounter Details Date Type Department Care Team Description 10/05/2018 Orders Only [facility] Doctor Unassigned, No [address] [facility] Name [address] [address] Allergies Active Allergy Reactions Severity Noted Date Comments Adhesive Tape-Silicones Itching, Rash 10/23/2014 documented as of this encounter (statuses as of 10/05/2018) Medications Medication Sig Dispensed Refills Start Date [...] as of this encounter (statuses as of 10/05/2018) Active Problems Problem Noted Date Screening for colorectal cancer 07/27/2017 Overview: Added automatically from request for surgery [id number] Abnormal LFTs 07/22/2017 Overview: Positive anti smooth muscle (F actin) antibody test CKD (chronic kidney disease), stage III 07/22/2017 Chronic musculoskeletal pain 05/30/2017 Seborrhea capitis 05/30/2017 Gout 12/30/2016 Overview: Feet Prediabetes 11/05/2015 Essential hypertension 10/03/2015 Left heart failure 05/27/2015 KIMBERLY on CPAP 05/27/2015 Obesity 05/27/2015 Nonischemic cardiomyopathy 05/27/2015 SOB (shortness of breath) 10/23/2014 documented as of this encounter (statuses as of 10/05/2018) Immunizations Name Administration Dates Next Due Influenza [...] of this encounter Last Filed Vital Signs Not on filedocumented in this encounter Plan of Treatment Health [...] 6 mos documented as of this encounter Procedures Procedure Name Priority Date/Time Associated Diagnosis Comments EXTERNAL PROVIDER - ADC Routine 10/05/2018 12:01 AM CARDIOLOGY CDT documented in this encounter Results Not on filedocumented in this encounter
[2018-11-13] MEDS ORDERED: FUROSEMIDE 100 MG/10 ML VIAL IV ONE (02:08)
[2018-11-13 02:35] LABS: Protime INR 1.11
[2018-11-13 02:36] LABS: Absolute Lymphocytes (CBC) 1.6 K/uL (0.7-4.9); Basophils % 0.8 % (0-1.3); Hematocrit 42.5 % (36.0-45.0); Lymphocytes % 31.2 % (15.3-44.8); MPV 11.2 fL (7.6-11.3); RBC Red Blood Cell Count 4.72 M/uL (3.86-4.86)
[2018-11-13 02:57] LABS: ALT/SGPT 32 U/L (12-78); AST/SGOT 22 U/L (15-37); Albumin 3.5 g/dL (3.4-5.0); Alkaline Phosphatase 65 U/L (45-117); BUN Blood Urea Nitrogen 12 mg/dL (7-18); Bicarbonate 39 mmol/L (21-32); Bilirubin Direct 0.3 mg/dL (0-0.2); Glucose Level 91 mg/dL (74-106); NT PRO-BNP 476 pg/mL (<125); Potassium 4.1 mmol/L (3.5-5.1); Protein, Total 7.2 g/dL (6.4-8.2); Sodium Level 144 mmol/L (136-145); Troponin (Emerg Dept Use Only) < 0.02 ng/mL (0.0-0.045)
[2018-11-13 03:50] LABS: Arterial Blood Carboxyhemoglob 1.2 % (0-1.5); Blood Gas Oxyhemoglobin 92.3 % (94-97); Blood O2 Saturation 94.2 % (92-98.5)
--- NOTE | 2018-11-13 04:06 | ER ---
Nurse's Notes [facility] Name: Danie Kumar Age: 53 yrs Sex: Female : 1965 Arrival Date: 11/13/2018 Time: 01:52 Bed 5 Private MD: Diagnosis: Acute respiratory failure with hypercapnia Presentation: 11/13 01:55 Presenting complaint: EMS states: SOB and leg pain X2 weeks. 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 pt uses 2 to 4 liter via NC. no resp distress noted. Transition of care: patient was not received from another setting of care. Onset of symptoms is unknown. Risk Assessment: Do you want to hurt yourself or someone else? Patient reports no desire to harm self or others. Initial Sepsis Screen: Does the patient meet any 2 criteria? No. Patient's initial sepsis screen is negative. Does the patient have a suspected source of infection? No. Patient's initial sepsis screen is negative. Care prior to arrival: None. 01:55 Method Of Arrival: EMS: [facility] ak1 01:55 Acuity: ANNABEL 3 ak1 Triage Assessment: 02:00 General: Appears in no apparent distress. comfortable, Behavior is calm, cooperative. ak1 Pain: Complains of pain in right leg and left leg. EENT: No signs and/or symptoms were reported regarding the EENT system. Neuro: No deficits noted. Cardiovascular: No deficits noted. Respiratory: Reports shortness of breath at rest on exertion since 2 weeks VC++ DEVELOPER. EMS stated pt fell asleep on the way to the ER. Onset: The symptoms/episode began/occurred 2 weeks VC++ DEVELOPER, the patient has mild shortness of breath. GI: No signs and/or symptoms were reported involving the gastrointestinal system. : No signs and/or symptoms were reported regarding the genitourinary system. Derm: Skin is normal, Skin temperature is warm Reports edema to bilateral legs for 1.5 weeks VC++ DEVELOPER. Musculoskeletal: pt c/o pain to bilateral legs. 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 tl1 Historical: - Allergies: 02:00 Adhesives; ak1 - Home Meds: 02:00 allopurinol 100 mg Oral tab 1 tab once daily [Active]; budesonide-formoterol inhalation ak1 2 times per day [Active]; carvedilol 6.25 mg Oral tab 1 tab 2 times per day [Active]; colchicine 0.6 mg Oral tab 1 tab as needed [Active]; digoxin 125 mcg Oral tab 1 tab once daily [Active]; Eliquis 5 mg Oral tab 1 tab 2 times per day [Active]; furosemide 80 mg Oral tab 1 tab 2 times per day [Active]; multivitamin Oral cap daily [Active]; potassium chloride 20 mEq Oral TbER 1 tab once daily [Active]; simvastatin 40 mg Oral tab 1 tab nightly [Active]; spironolactone 25 mg Oral tab 1 tab once daily [Active]; tramadol 50 mg Oral tab 1 tab as needed [Active]; - PMHx: 02:00 cardiomyopathy; CHF; chronic kidney disease-stage 3; COPD; Hyperlipidemia; Gout; Sleep ak1 Apnea; Hypertension; - PSHx: 02:00 Unable to obtain; ak1 - Immunization history:: Adult Immunizations unknown. - Social history:: Smoking status: unknown. - Ebola Screening: : No symptoms or risks identified at this time. Screenin:03 Abuse screen: Denies threats or abuse. Denies injuries from another. Nutritional ak1 screening: No deficits noted. Tuberculosis screening: No symptoms or risk factors identified. Fall Risk None identified. Assessment: 02:03 Respiratory: Airway is patent Respiratory effort is even, unlabored, Respiratory ak1 pattern is regular, Breath sounds are clear. 02:03 Reassessment: see triage assessment. ak1 04:52 Cardiovascular: Rhythm is atrial fibrillation. tl1 Vital Signs: 02:00 BP 138 / 60; Pulse 92; Resp 16; Temp 97.9; Pulse Ox 88% on R/A; Weight 154.22 kg (R); ak1 Height 5 ft. 9 in. (175.26 cm) (R); Pain 10/10; 02:02 Pulse Ox 93% on 2 lpm NC; ak1 02:51 BP 110 / 94; Pulse 107; Resp 29; Pulse Ox 96% on 2 lpm NC; tl1 03:34 BP 120 / 79; Pulse 100; Resp 29; Pulse Ox 95% on 2 lpm NC; tl1 04:52 BP 117 / 83; Pulse 100; Resp 34; Temp 98(TE); Pulse Ox 100% on BiPAP; Pain 0/10; tl1 02:00 Body Mass Index 50.21 (154.22 kg, 175.26 cm) ak1 ED Course: 01:52 Patient arrived in ED. ds1 01:59 Triage completed. ak1 02:02 Arm band placed on Patient placed in an exam room, on a stretcher, on oxygen, on pulse ak1 oximetry, Patient notified of wait time. 02:03 Patient has correct armband on for positive identification. Placed in gown. Bed in low ak1 position. Call light in reach. Side rails up X2. Pulse ox on. NIBP on. Warm blanket given. 02:05 Billie Braxton, RN is Primary Nurse. ak1 02:05 Edward Cartagena MD is Attending Physician. gs 02:25 EKG done, by ED staff, reviewed by Edward Cartagena MD. Inserted saline lock: 20 gauge in ag4 left antecubital area, using aseptic technique. Blood collected. 02:30 XRAY Chest (1 view) In Process Unspecified. EDMS 02:45 No provider procedures requiring assistance completed. Acosta cath inserted, using tl1 sterile technique, 16 Fr., by nm, balloon inflated, to gravity drainage, urine specimen collected. 04:04 Hermann Harris DO is Hospitalizing Provider. gs 04:54 Patient admitted, IV remains in place. tl1 Administered Medications: 02:44 Drug: Lasix 80 mg Route: IVP; Infused Over: 4 mins; Site: left antecubital; tl1 04:14 Follow up: Response: No adverse reaction; Marked relief of symptoms tl1 04:14 Drug: Albuterol - atroVENT (3:1) (2.5 mg - 0.5 mg) 3 ml Route: Nebulizer; tl1 04:52 Follow up: Response: No adverse reaction; No change in condition tl1 04:14 Drug: SOLU-Medrol 60 mg Route: IVP; Infused Over: 3 mins; Site: left antecubital; tl1 04:52 Follow up: Response: No adverse reaction; No change in condition tl1 Output: 05:19 Urine: 1200ml (Acosta); Total: 1200ml. tl1 Outcome: 04:05 Decision to Hospitalize by Provider. gs 04:53 Admitted to ICU accompanied by nurse, via stretcher, with oxygen, with chart, Report tl1 called to Larilyn RN 04:53 critical 04:53 Instructed on the need for admit. 05:19 Patient left the ED. tl1 Signatures: Dispatcher [employer] EDAleksandra Balderrama ds1 Lupe Mix RN RN tl1 Billie Braxton RN RN ak1 Edward Cartagena MD MD gs Guzman, Adan ag4 Corrections: (The following items were deleted from the chart) 02:04 02:03 Cardiovascular: ak1 ak1
--- NOTE | 2018-11-13 04:06 | EDPHYS ---
Physician Documentation [facility] Name: Danie Kumar Age: 53 yrs Sex: Female : 1965 Arrival Date: 11/13/2018 Time: 01:52 Bed 5 Private MD: ED Physician Edward Cartagena HPI: 11/13 04:00 This 53 yrs old Black Female presents to ER via EMS with complaints of Shortness Of gs Breath. 04:00 The patient has shortness of breath at rest. Onset: The symptoms/episode began/occurred gs acutely, today. Duration: The symptoms are continuous. The patient's shortness of breath is aggravated by nothing, is alleviated by nothing. Associated signs and symptoms: Pertinent positives: [id number] legs. Severity of symptoms: At their worst the symptoms were severe in the emergency department the symptoms are unchanged. The patient has experienced similar episodes in the past, a few times. 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 tl1 Historical: - Allergies: 02:00 Adhesives; ak1 - Home Meds: 02:00 allopurinol 100 mg Oral tab 1 tab once daily [Active]; budesonide-formoterol inhalation ak1 2 times per day [Active]; carvedilol 6.25 mg Oral tab 1 tab 2 times per day [Active]; colchicine 0.6 mg Oral tab 1 tab as needed [Active]; digoxin 125 mcg Oral tab 1 tab once daily [Active]; Eliquis 5 mg Oral tab 1 tab 2 times per day [Active]; furosemide 80 mg Oral tab 1 tab 2 times per day [Active]; multivitamin Oral cap daily [Active]; potassium chloride 20 mEq Oral TbER 1 tab once daily [Active]; simvastatin 40 mg Oral tab 1 tab nightly [Active]; spironolactone 25 mg Oral tab 1 tab once daily [Active]; tramadol 50 mg Oral tab 1 tab as needed [Active]; - PMHx: 02:00 cardiomyopathy; CHF; chronic kidney disease-stage 3; COPD; Hyperlipidemia; Gout; Sleep ak1 Apnea; Hypertension; - PSHx: 02:00 Unable to obtain; ak1 - Immunization history:: Adult Immunizations unknown. - Social history:: Smoking status: unknown. - Ebola Screening: : No symptoms or risks identified at this time. ROS: 04:00 All other systems are negative. gs Exam: 04:00 Head/Face: Normocephalic, atraumatic. Eyes: Pupils equal round and reactive to light, gs extra-ocular motions intact. Lids and lashes normal. Conjunctiva and sclera are non-icteric and not injected. Cornea within normal limits. Periorbital areas with no swelling, redness, or edema. ENT: Nares patent. No nasal discharge, no septal abnormalities noted. Tympanic membranes are normal and external auditory canals are clear. Oropharynx with no redness, swelling, or masses, exudates, or evidence of obstruction, uvula midline. Mucous membranes moist. Neck: Trachea midline, no thyromegaly or masses palpated, and no cervical lymphadenopathy. Supple, full range of motion without nuchal rigidity, or vertebral point tenderness. No Meningismus. Chest/axilla: Normal chest wall appearance and motion. Nontender with no deformity. No lesions are appreciated. 04:00 Abdomen/GI: Soft, non-tender, with normal bowel sounds. No distension or tympany. No guarding or rebound. No evidence of tenderness throughout. Back: No spinal tenderness. No costovertebral tenderness. Full range of motion. Skin: Warm, dry with normal turgor. Normal color with no rashes, no lesions, and no evidence of cellulitis. MS/ Extremity: Pulses equal, no cyanosis. Neurovascular intact. Full, normal range of motion. Neuro: Awake and alert, GCS 15, oriented to person, place, time, and situation. Cranial nerves II-XII grossly intact. Motor strength 5/5 in all extremities. Sensory grossly intact. Cerebellar exam normal. Normal gait. 04:00 Constitutional: The patient appears alert, awake. 04:00 Cardiovascular: Rate: normal, Rhythm: irregularly irregular, Pulses: no pulse deficits are appreciated, Edema: 3+ edema to level of left midcalf and right midcalf. 04:00 ECG was reviewed by the Attending Physician. 04:00 Respiratory: moderate respiratory distress is noted, Respirations: tachypnea, Breath sounds: decreased breath sounds, are located in both bases. Vital Signs: 02:00 BP 138 / 60; Pulse 92; Resp 16; Temp 97.9; Pulse Ox 88% on R/A; Weight 154.22 kg (R); ak1 Height 5 ft. 9 in. (175.26 cm) (R); Pain 10/10; 02:02 Pulse Ox 93% on 2 lpm NC; ak1 02:51 BP 110 / 94; Pulse 107; Resp 29; Pulse Ox 96% on 2 lpm NC; tl1 03:34 BP 120 / 79; Pulse 100; Resp 29; Pulse Ox 95% on 2 lpm NC; tl1 04:52 BP 117 / 83; Pulse 100; Resp 34; Temp 98(TE); Pulse Ox 100% on BiPAP; Pain 0/10; tl1 02:00 Body Mass Index 50.21 (154.22 kg, 175.26 cm) ak1 MDM: 02:05 Patient medically screened. gs 04:00 Differential diagnosis: CHF exacerbation, Chronic Obstructive Pulmonary Disease gs Myocardial Infarction pneumonia. Data reviewed: vital signs, nurses notes, lab test result(s), EKG, radiologic studies, and as a result, I will admit patient, put on bipap. Counseling: I had a detailed discussion with the patient and/or guardian regarding: the historical points, exam findings, and any diagnostic results supporting the discharge/admit diagnosis, the need for further work-up and treatment in the hospital. 11/13 02:06 Order name: Basic Metabolic Panel 11/13 02:06 Order name: CBC with Diff 11/13 02:06 Order name: LFT's; Complete Time: 03:29 gs 11/13 02:06 Order name: Magnesium; Complete Time: 03:29 gs 11/13 02:06 Order name: NT PRO-BNP; Complete Time: 03:29 gs 11/13 02:06 Order name: PT-INR; Complete Time: 03:29 11/13 02:06 Order name: Troponin (emerg Dept Use Only); Complete Time: 03:29 gs 11/13 02:06 Order name: XRAY Chest (1 view) 11/13 02:06 Order name: Basic Metabolic Panel; Complete Time: 03:29 EDMS 11/13 02:06 Order name: CBC with Automated Diff; Complete Time: 03:29 EDMS 11/13 03:29 Order name: ABG 11/13 02:06 Order name: EKG; Complete Time: 02:07 gs 11/13 02:06 Order name: Cardiac monitoring; Complete Time: 02:23 gs 11/13 02:06 Order name: EKG - Nurse/Tech; Complete Time: 02: 11/13 02:06 Order name: IV Saline Lock; Complete Time: 11/13 02:06 Order name: Labs collected and sent; Complete Time: 11/13 02:06 Order name: O2 Per Protocol; Complete Time: 02: 11/13 02:06 Order name: O2 Sat Monitoring; Complete Time: 02: 11/13 02:45 Order name: Acosta; Complete Time: 02:45 tl1 EC:00 Rate is 93 beats/min. Rhythm is irregularly irregular. QRS interval is normal. QT gs interval is normal. T waves are Flattened. Clinical impression: Abnormal EKG without significant change and Atrial Fibrillation. Interpreted by me. Administered Medications: 02:44 Drug: Lasix 80 mg Route: IVP; Infused Over: 4 mins; Site: left antecubital; tl1 04:14 Follow up: Response: No adverse reaction; Marked relief of symptoms tl1 04:14 Drug: Albuterol - atroVENT (3:1) (2.5 mg - 0.5 mg) 3 ml Route: Nebulizer; tl1 04:52 Follow up: Response: No adverse reaction; No change in condition tl1 04:14 Drug: SOLU-Medrol 60 mg Route: IVP; Infused Over: 3 mins; Site: left antecubital; tl1 04:52 Follow up: Response: No adverse reaction; No change in condition tl1 Disposition: 04:00 Critical Care:. Disposition: 11/13/18 04:05 Hospitalization ordered by Hermann Harris for Inpatient Admission. Preliminary diagnosis is Acute respiratory failure with hypercapnia. - Bed requested for Intensive Care Unit. - Status is Inpatient Admission. tl1 - Condition is Stable. - Problem is new. - Symptoms have improved. UTI on Admission? No Critical care time excluding procedures: 04:00 Critical care time: Bedside Care: 10 minutes, Consultation: 10 minutes, Family gs Intervention: 10 minutes. Total time: 30 minutes Signatures: Dispatcher [employer] EDMS Lupe Mix RN RN tl1 Billie Braxton RN RN ak1 Dhara Aguilera RN RN cg Starr, Gregory, MD MD gs Corrections: (The following items were deleted from the chart) 04:09 04:05 Hospitalization Ordered by Hermann Harris DO for Inpatient Admission. Preliminary gs diagnosis is Acute respiratory failure with hypercapnia. Bed requested for Telemetry/MedSurg (Inpatient). Status is Inpatient Admission. Condition is Stable. Problem is new. Symptoms have improved. UTI on Admission? No. 04:32 04:09 11/13/2018 04:05 Hospitalization Ordered by Hermann Harris DO for Inpatient cg Admission. Preliminary diagnosis is Acute respiratory failure with hypercapnia. Bed requested for Intensive Care Unit. Status is Inpatient Admission. Condition is Stable. Problem is new. Symptoms have improved. UTI on Admission? No. 05:19 04:32 11/13/2018 04:05 Hospitalization Ordered by Hermann Harris DO for Inpatient tl1 Admission. Preliminary diagnosis is Acute respiratory failure with hypercapnia. Bed requested for Intensive Care Unit. Status is Inpatient Admission. Condition is Stable. Problem is new. Symptoms have improved. UTI on Admission? No.
[2018-11-13] MEDS ORDERED: METHYLPREDNISOLONE 125 MG INJ ONE (04:11)
--- NOTE | 2018-11-13 04:36 | P.HP ---
Certification for Inpatient Patient admitted to: Inpatient With expected LOS: >2 Midnights Patient will require the following post-hospital care: Home Health Services Practitioner: I am a practitioner with admitting privileges, knowledge of patient current condition, hospital course, and medical plan of care. Services: Services provided to patient in accordance with Admission requirements found in Title 42 Section 412.3 of the Code of Federal Regulations Patient History Date of Service: 11/13/18 Primary Care Provider: Dr. Farfan([facility]); Pulmonary-Dr. Connolly; Cardiology-Dr. Montoya Reason for admission: Shortness of breath History of Present Illness: 53-year-old female presented to the emergency room with shortness of breath. Patient with underlying history of chronic renal disease, diastolic CHF, hypertension, chronic atrial fibrillation on chronic anti coagulation therapy, hyperlipidemia and COPD. Patient reported increasing shortness of breath over the last several days. She had reported some edema to the lower extremities as well. She is on multiple medications including Lasix and medication for COPD. Her shortness of breath got worse Overnite. She denied any fever, chills. She denied any chest pain. She came to the ER for further evaluation. Patient recently hospitalized in August of 2018 for chest pain. At that time her cardiac stress test was unremarkable. Echocardiogram showed ejection fraction 77%. In the ER patient evaluated. Patient was tachypneic and tachycardic upon arrival. She was also hypoxic with he room-air saturations around 88%. Patient required BiPAP in the emergency room. She received albuterol, IV steroid, and IV Lasix. Patient shows improvement. On lab white count 5.2, hemoglobin 13.7. Platelet count 194. Troponin unremarkable. BNP 476. Sodium 144, potassium 4.1, BUN of 12, creatinine 1.27 with a GFR 53. Glucose 91. Patient was admitted for further evaluation and treatment. When I saw the patient the ER, she was on BiPAP. She appeared improved. Patient reports increasing lower extremity edema to the extremities over the last several days. She is on a fluid restriction. She was recently given oxygen by her elementary tutor. Allergies Adhesives Allergy (Uncoded 05/27/16 01:54) Unknown Home medications list reviewed: Yes Home Medications: Allopurinol [Zyloprim*] 100 mg PO DAILY 08/27/18 Apixaban [Eliquis *] 5 mg PO BID 08/27/18 Carvedilol [Coreg*] 6.25 mg PO BID 08/27/18 Digoxin [Digitek] 125 mcg PO DAILY 08/27/18 Fluticasone/Salmeterol [Advair 250-50 Diskus] 1 each IH BID 08/27/18 Furosemide [Lasix] 80 mg PO BID 08/27/18 Simvastatin 40 mg PO BEDTIME 08/27/18 Spironolactone [Aldactone*] 25 mg PO DAILY 08/27/18 Docusate [Colace Cap*] 100 mg PO BID cap 09/02/18 predniSONE [Prednisone*] 10 mg PO DAILY #5 tab 09/02/18 - Past Medical/Surgical History Diabetic: No -: Diastolic CHF -: Chronic renal disease, stage III -: COPD, with chronic oxygen -: HTN -: Hyperlipidemia -: Obstructive sleep apnea non compliant with CPAP -: Obesity -: Gout -: Chronic atrial fibrillation on chronic anti coagulation therapy Past Surgical History: Reviewed- Non-Contributory Psychosocial/ Personal History: Patient lives at home. - Family History Family History: Reviewed- Non-Contributory - Social History Smoking Status: Unknown if ever smoked Alcohol use: Yes CD- Drugs: No Caffeine use: No Place of Residence: Home Review of Systems General: Weakness, As per HPI Eyes: Unremarkable ENT: Unremarkable Respiratory: Cough, Shortness of Breath, SOB with Excertion, As per HPI Cardiovascular: Paroxysmal Noc. Dyspnea, Edema, As per HPI Gastrointestinal: Unremarkable Genitourinary: Unremarkable Musculoskeletal: Pedal edema, As per HPI Integumentary: Unremarkable Neurological: Unremarkable Lymphatics: Unremarkable Physical Examination - Physical Exam General: Alert, Oriented x3, Cooperative, Mild distress (Patient currently on BiPAP) HEENT: Atraumatic, Normocephalic, PERRLA, Mucous membr. moist/pink Neck: Supple, No Thyromegaly Respiratory: Diminished (To the bases bilateral), Expiratory wheezes, Inspiratory wheezes Cardiovascular: Irregular heart rate/rhythm (Atrial fibrillation, rate around 110) Gastrointestinal: Normal bowel sounds, Soft and benign, Non-distended, No tenderness, No masses, No rebound, No guarding Musculoskeletal: No erythema, No tenderness, No warmth Integumentary: Tenderness/swelling (1+ pitting edema to the lower extremities bilateral below the knees) Neurological: Normal speech, Normal strength at 5/5 x4 extr, Normal tone, Normal affect - Studies Laboratory Data (last 24 hrs) 11/13/18 02:20: PT 13.0 H, INR 1.11 11/13/18 02:20: WBC 5.2, Hgb 13.7, Hct 42.5, Plt Count 154 11/13/18 02:20: Sodium 144, Potassium 4.1, BUN 12, Creatinine 1.27, Glucose 91, Magnesium 2.0, Total Bilirubin 1.0, AST 22, ALT 32, Alkaline Phosphatase 65 Assessment and Plan - Plan Impression: Shortness of breath secondary to acute on chronic respiratory failure with hypoxia and tachypnea related to COPD exacerbation complicated with acute on chronic diastolic CHF Chronic atrial fibrillation on chronic anti coagulation therapy Hypertension Obstructive sleep apnea Chronic renal disease, stage III Hyperlipidemia Gout GERD Morbid obesity Plan: Shortness of breath secondary to acute on chronic respiratory failure with hypoxia and tachypnea related to COPD exacerbation complicated with acute on chronic diastolic CHF: Patient will be admitted for further evaluation and treatment. Patient will start off in the ICU then transition to the floor. Will continue with BiPAP. Will have respiratory wean off BiPAP to nasal oxygen over the next day. Continue to maintain sats above 94%. Will continue with IV Lasix 40 mg twice daily and 1500 cc per day fluid restriction for her CHF. Will continue to monitor weight daily. Will monitor strict input and output. Patient recently hospitalized in August of 2018 with normal cardiac stress test and echocardiogram showing ejection fraction 77%. For her COPD will continue with COPD medication-Brovana, Xopenex and Atrovent. Will provide prednisone 20 mg 1 pill twice daily. Will consult pulmonology to further monitor and address. Recheck chest x-ray tomorrow. Social work consulted to continue with home oxygen at discharge and home health. Daytime hospitalist-Dr. Dietz will continue her care. Anticipate discharge in the next 48-72 hr with clinical improvement. Chronic atrial fibrillation on chronic anti coagulation therapy: Continue with digoxin 0.125 mg daily, Eliquis 5 mg 1 pill twice daily and carvedilol 6.25 mg 1 pill twice daily. Hypertension: Continue with carvedilol 6.25 mg 1 pill twice daily. Will monitor and adjust appropriately. Obstructive sleep apnea: Patient will need to continue with CPAP at night. Patient with history of noncompliance with CPAP. Encourage compliance at home Chronic renal disease, stage III: Continue to monitor and address appropriately. Recommend no further use of nonsteroidal anti-inflammatories. Medications will need to be renally dose. Hyperlipidemia: Continue with home medication Zocor 40 mg daily Gout: Continue home medication allopurinol 100 mg daily GERD: Will continue with Pepcid 20 mg 1 pill twice daily. Morbid obesity: Will check BMI. Will continue with lifestyle modification education. Discharge Plan: Home Plan to discharge in: 72 Hours - Advance Directives Does patient have a Living Will: No Does patient have a Durable POA for Healthcare: No - Code Status/Comfort Care Code Status Assessed: Yes (Patient is full code) Time Spent Managing Pts Care (In Minutes): 55
[2018-11-13] MEDS ORDERED: ACETAMINOPHEN 500 MG TAB PO PRN (05:01)
[2018-11-13] MEDS ORDERED: ONDANSETRON 4 MG/2 ML VIAL IV PRN (05:01)
[2018-11-13] MEDS ORDERED: ALBUTEROL 2.5 MG/3 ML NEB SOL NEB PRN (05:01)
[2018-11-13] MEDS: IPRATROPIUM BROM 0.5MG/2.5ML NEB PRN ×2 (08:45→20:50)
[2018-11-13] MEDS: ARFORMOTEROL TARTRATE 15 MCG/2 ML VIAL.NEB NEB SCH ×2 (08:45→20:00)
[2018-11-13] MEDS ORDERED: FUROSEMIDE 40 MG/4 ML VIAL IV SCH (09:00)
--- NOTE | 2018-11-13 09:31 | EKG ---
Test Date: 2018-11-13 Test Time: 02:11:01 Transfer Driver: [id number] MEASUREMENT RESULTS: Intervals: Rate: 93 IA: QRSD: 68 QT: 366 QTc: 455 [place]: P: IA: QRS: 37 T: 75 INTERPRETIVE STATEMENTS: Atrial fibrillation with premature ventricular or aberrantly conducted complexes Low voltage QRS Cannot rule out Anterior infarct, age undetermined Abnormal ECG Compared to ECG 08/28/2018 23:51:10 Ventricular premature complex(es) now present Myocardial infarct finding still present Electronically Signed On 11-13-18 09:30:57 CDT by Sonu Tapia
[2018-11-13] MEDS: DIGOXIN 0.125 MG TABLET PO SCH (09:40)
[2018-11-13] MEDS: ALLOPURINOL 100 MG TAB PO SCH (09:40)
[2018-11-13] MEDS: predniSONE 20 MG TAB PO SCH ×2 (09:41→21:13)
[2018-11-13] MEDS: CARVEDILOL 6.25 MG TAB PO SCH ×2 (09:41→21:00)
[2018-11-13] MEDS: APIXABAN 5 MG TABLET PO SCH ×2 (09:41→21:13)
[2018-11-13] MEDS: FAMOTIDINE 20 MG TAB PO SCH ×2 (09:41→21:14)
[2018-11-13] MEDS ORDERED: COLCHICINE 0.6 MG TAB PO PRN (09:51)
[2018-11-13 10:29] LABS: Arterial Blood Carboxyhemoglob 1.5 % (0-1.5); Blood Gas Oxyhemoglobin 92.1 % (94-97); Blood O2 Saturation 94.1 % (92-98.5)
--- NOTE | 2018-11-13 10:47 | P.CNS ---
Date of Consult: 11/12/18 Primary Care Provider: Dr. Farfan([facility]); Pulmonary-Dr. Connolly; Cardiology-Dr. Montoya Chief Complaint: Respiratory failure History of Present Illness: Patient is 53 years of age with a history of lap hypoxic hypercapnic respiratory failure has min doing well since discharge recently purchased a oxygen concentrator from [employer] came in complaining of lower extremity edema as been complaining of wheezing cough no relief with bronchodilators lower extremity edema she is anti coagulated Allergies Adhesives Allergy (Uncoded 05/27/16 01:54) Unknown Home Medications: Allopurinol [Zyloprim*] 100 mg PO DAILY 08/27/18 Apixaban [Eliquis *] 5 mg PO BID 08/27/18 Carvedilol [Coreg*] 6.25 mg PO BID 08/27/18 Digoxin [Digitek] 125 mcg PO DAILY 08/27/18 Furosemide [Lasix] 80 mg PO BID 08/27/18 Simvastatin 40 mg PO BEDTIME 08/27/18 Spironolactone [Aldactone*] 25 mg PO DAILY 08/27/18 Budesonide/Formoterol Fumarate [Symbicort 80-4.5 Mcg Inhaler] 1 puff IH BID 10/24 Colchicine 0.6 mg PO DAILYPRN PRN 11/13/18 Multivitamin [Multivitamins] 1 each PO DAILY 11/13/18 Potassium Chloride [Klor-Con] 20 meq PO DAILY 11/13/18 Tramadol HCl [Ultram] 50 mg PO Q6HP PRN 11/13/18 - Past Medical/Surgical History Diabetic: No -: Diastolic CHF -: Chronic renal disease, stage III -: COPD, with chronic oxygen -: HTN -: Hyperlipidemia -: Obstructive sleep apnea non compliant with CPAP -: Obesity -: Gout -: Chronic atrial fibrillation on chronic anti coagulation therapy Psychosocial/ Personal History: Patient lives at home. - Social History Smoking Status: Unknown if ever smoked Alcohol use: No CD- Drugs: No Caffeine use: Yes Place of Residence: Home Review of Systems General: Weakness Respiratory: Cough, Shortness of Breath Cardiovascular: Edema (Bilateral edema) Physical Examination Temp Pulse Resp BP Pulse Ox 98.4 F 110 H 28 H 104/64 95 11/13/18 08:00 11/13/18 09:41 11/13/18 09:00 11/13/18 09:41 11/13/18 09:00 General: Alert, In no apparent distress, Oriented x3 Neck: Supple Respiratory: Clear to auscultation bilaterally, Diminished Cardiovascular: Normal S1 S2, Edema (Bilateral edema) Laboratory Data (last 24 hrs) 11/13/18 02:20: PT 13.0 H, INR 1.11 11/13/18 02:20: WBC 5.2, Hgb 13.7, Hct 42.5, Plt Count 154 11/13/18 02:20: Sodium 144, Potassium 4.1, BUN 12, Creatinine 1.27, Glucose 91, Magnesium 2.0, Total Bilirubin 1.0, AST 22, ALT 32, Alkaline Phosphatase 65 - Problems (1) Respiratory failure Current Visit: Yes Status: Acute Plan: Patient is 53 years of age admitted with worsening dyspnea she has chronic hypoxic hypercapnic respiratory failure suspect cor pulmonale patient has lower extremity edema. Patient is fully anti coagulated with Eliquis continue with bronchodilators increase spironolactone changed Lasix to 40 mg daily continue with bronchodilators patient has normal left ventricular function most likely diastolic dysfunction Qualifiers: Chronicity: acute on chronic
--- NOTE | 2018-11-13 12:46 | RAD REPORT ---
EXAM DESCRIPTION: RAD - Chest Single View - 11/13/2018 2:31 am CLINICAL HISTORY: SOB Chest pain. COMPARISON: <Comparisons> FINDINGS: Portable technique limits examination quality. Mild to moderate pulmonary edema. The heart is quite enlarged. No displaced fractures. IMPRESSION: Moderate CHF.
[2018-11-13 12:50] LABS: CKMB Creatine Kinase MB < 1.0 ng/mL (0.3-3.6); Creatine Phosphokinase 151 U/L (26-192); Troponin I < 0.02 ng/mL (0.0-0.045)
[2018-11-13 13:18] LABS: Arterial Blood Carboxyhemoglob 1.7 % (0-1.5); Blood Gas Oxyhemoglobin 91.3 % (94-97); Blood O2 Saturation 93.3 % (92-98.5)
--- NOTE | 2018-11-13 15:23 | PN ---
Date of Progress Note: 11/13/2018 Subjective: Patient seen and examined. Chart reviewed and case discussed with RN. Patient is somew hat drowsy, difficult to arouse, however, does wake up with sternal rub. Medications: List reviewed. Physical Examination: Vital Signs: Temperature 98.4, heart rate 110, respirations 22, blood pressure 122/62, saturation 95 on BiPAP 35% FiO2. General: Asleep but arousable to sternal rub, somewhat drowsy, morbidly obese, ill-appearing female, in mild respiratory distress. CV: S1, S2. Irregularly irregular. Peripheral pulses present with Doppler, unable to be palpated. Respiratory: Diminished breath sounds. The patient is tachypneic with use of accessory muscles. Gastrointestinal: Abdomen is soft, nontender, nondistended. Positive bowel sounds. No guarding or rigidity. Extremities: No clubbing or cyanosis. The patient has 2+ edema bilateral lower extremities. No paris f tenderness. Neuro: Cranial nerves 2 through 12 intact grossly. No focal neurological deficit. Speech is normal . Laboratory Data: Sodium 144, potassium 4.1, chloride 103, CO2 39, BUN 12, creatinine 1.27, glucose 9 1, calcium 9, magnesium 2. Troponin less than 0.02, BNP 476. WBC 5.2, H and H 13.7 and 42.5, platel ets 154. Blood cultures are pending. Assessment And Plan: A 53-year-old female with: 1.Shortness of breath. Patient currently on BiPAP. 2.Acute on chronic respiratory failure with hypoxia secondary to chronic obstructive pulmonary disea se and congestive heart failure. We will repeat ABG. Patient is retaining CO2 slightly acidotic. A ppreciate Pulmonology input. We will continue with BiPAP for now. 3.Acute chronic obstructive pulmonary disease exacerbation. We will continue with steroids. Brovan a, Xopenex and Atrovent. Patient is oxygen dependent at home, recently started. We will continue to monitor O2 saturations. 4.Acute on chronic diastolic heart failure, ejection fraction 77%. The patient had recent stress te st in August. We will continue with IV fluid restriction. Monitor I's and O's and continue with diure tics with IV Lasix. Weigh daily. 5.Chronic atrial fibrillation, on anticoagulation, rate controlled. Continue digoxin. Patient is o n Eliquis and Coreg, stable. 6.Essential hypertension, stable. Resume home medications. 7.Obstructive sleep apnea. Continue with CPAP at night. 8.Chronic kidney disease, stage 3. Creatinine is currently normal. No NSAIDs. We will continue to monitor closely. 9.Hyperlipidemia. We will continue with Zocor. 10.Gout, on allopurinol. Stable. 11.Gastroesophageal reflux disease. Continue with Pepcid, stable. No esophagitis. 12.Morbid obesity. BMI is 52. Patient will benefit from bariatric surgery. 13.Deep vein thrombosis prophylaxis. The patient is already on Lovenox. Plan: Continue to monitor in ICU setting. We will repeat ABG. Wean off BiPAP as tolerated. Likely discharge in the next 24-48 hours depending on clinical response. /SONAL Voice ID: [id number] Report ID: [id number]
[2018-11-13] MEDS: SPIRONOLACTONE 25 MG TABLET PO SCH (17:50)
[2018-11-13 20:40] LABS: CKMB Creatine Kinase MB < 1.0 ng/mL (0.3-3.6); Creatine Phosphokinase 127 U/L (26-192); Troponin I < 0.02 ng/mL (0.0-0.045)
[2018-11-13] MEDS ORDERED: HOME MED 1 EA UNK (Budesonide/Formoterol Fumarate [Symbicort 80-4.5 Mcg Inhaler] 1 PUFF) IH SCH (21:00)
[2018-11-13] MEDS: ATORVASTATIN 20 MG TAB PO SCH (21:13)
[2018-11-14 03:31] VITALS: BMI 52.8
[2018-11-14] MEDS: TRAMADOL HCL 50 MG TAB PO PRN ×2 (03:34→21:19)
[2018-11-14 04:57] LABS: Absolute Lymphocytes (CBC) 0.8 K/uL (0.7-4.9); Basophils % 0.6 % (0-1.3); Hematocrit 40.5 % (36.0-45.0); Lymphocytes % 9.7 % (15.3-44.8); MPV 11.2 fL (7.6-11.3); RBC Red Blood Cell Count 4.49 M/uL (3.86-4.86)
[2018-11-14 05:31] LABS: Magnesium 2.1 mg/dL (1.8-2.4); Potassium 4.7 mmol/L (3.5-5.1); Thyroid Stimulating Hormone 0.224 uIU/mL (0.360-3.740)
--- NOTE | 2018-11-14 08:22 | RAD REPORT ---
EXAM DESCRIPTION: RAD - Chest Single View - 11/14/2018 6:18 am CLINICAL HISTORY: series Chest pain. COMPARISON: Chest Single View dated 11/13/2018; Chest Pa And Lat (2 Views) dated 08/28/2018; Abdomen 1 View (KUB) dated 08/27/2018; Chest Single View dated 08/27/2018 FINDINGS: Portable technique limits examination quality. Since 11/13/2018, mild improvement in the CHF pattern is seen. The heart remains significantly enlarg ed. Mild pulmonary edema persists. No displaced fractures. IMPRESSION: Mild improvement in lung aeration since preceding day's study.
[2018-11-14] MEDS: ALLOPURINOL 100 MG TAB PO SCH (08:24)
[2018-11-14] MEDS: SPIRONOLACTONE 25 MG TABLET PO SCH (08:24)
[2018-11-14] MEDS: FUROSEMIDE 40 MG TABLET PO SCH (08:24)
[2018-11-14] MEDS: FAMOTIDINE 20 MG TAB PO SCH ×2 (08:24→21:20)
[2018-11-14] MEDS: APIXABAN 5 MG TABLET PO SCH ×2 (08:24→21:20)
[2018-11-14] MEDS: DIGOXIN 0.125 MG TABLET PO SCH (08:24)
[2018-11-14] MEDS: predniSONE 20 MG TAB PO SCH ×2 (08:24→21:20)
[2018-11-14] MEDS: CARVEDILOL 6.25 MG TAB PO SCH ×2 (08:24→21:20)
[2018-11-14] MEDS ORDERED: SPIRONOLACTONE 25 MG TABLET PO SCH (09:00)
[2018-11-14] MEDS: ARFORMOTEROL TARTRATE 15 MCG/2 ML VIAL.NEB NEB SCH ×2 (09:50→20:00)
--- NOTE | 2018-11-14 13:06 | PN ---
Date of Progress Note: 11/14/2018 Subjective: Patient seen and examined. Chart reviewed and case discussed with RN. Patient is signi ficantly more alert and oriented off the BiPAP. Medications: List reviewed. Physical Examination: Vital Signs: Temperature 97.1, heart rate 88, blood pressure 100/58, respirations 19, O2 97% on 3 L via nasal cannula. General: Awake, alert, oriented x3. Morbidly obese female, not in any acute distress. CV: S1, S2. Regular rate and rhythm. Peripheral pulses diminished. Respiratory: Diminished breath sounds overall. No wheezing or stridor. Gastrointestinal: Abdomen is soft, nontender, nondistended. Positive bowel sounds. Extremities: No clubbing, cyanosis, or edema. Neurologic: Nonfocal. Laboratory Data: Sodium 142, potassium 4.7, chloride 101, CO2 38, BUN 19, creatinine 1.43, glucose 1 48, calcium 9.1, magnesium 2.1. TSH 0.224, free T4 0.74. WBC 8.5, H and H 12.9 and 40.5, platelets 152. Blood cultures, no growth to date. Chest x-ray shows mild improvement in lung aeration since p brady harkins's study. Mild pulmonary edema persists. Assessment: A 53-year-old female with; 1.Shortness of breath, now off BiPAP. 2.Acute on chronic respiratory failure with hypoxia secondary to chronic obstructive pulmonary disea se and congestive heart failure, improving. Appreciate Pulmonology input. 3.Acute chronic obstructive pulmonary disease exacerbation. Continue steroids, Brovana, Xopenex, an d Atrovent. Patient does use oxygen at home. Continue to monitor pulse ox. 4.Acute on chronic diastolic heart failure, EF 77%. Recent stress test in August. Monitor I's and O' s. Continue with diuretics and weigh daily. Continue fluid restriction. 5.Chronic atrial fibrillation, on anticoagulation, rate controlled. Continue digoxin, Eliquis, and Coreg. 6.Essential hypertension, stable. 7.Obstructive sleep apnea. Continue CPAP at night. 8.Chronic kidney disease, stage 3. Creatinine is 1.43, which is elevated over her baseline. We briseyda l continue to monitor. Avoid NSAIDs. 9.Mixed hyperlipidemia. We will continue Zocor. 10.Gout. Continue allopurinol, stable. 11.Gastroesophageal reflux disease without esophagitis. Continue Pepcid. 12.Morbid obesity, BMI 52. Patient will benefit from bariatric surgery. 13.Deep venous thrombosis prophylaxis with Lovenox. Plan: Likely discharge in the next 24 to 48 hours depending on clinical response. Chest x-ray shows improvement. Negative fluid balance. /SONAL Voice ID: [id number] Report ID: [id number]
[2018-11-14] MEDS: IPRATROPIUM BROM 0.5MG/2.5ML NEB PRN (20:07)
[2018-11-14] MEDS: ATORVASTATIN 20 MG TAB PO SCH (21:20)
[2018-11-15 04:46] LABS: Absolute Lymphocytes (CBC) 0.8 K/uL (0.7-4.9); Basophils % 0.4 % (0-1.3); Hematocrit 40.4 % (36.0-45.0); Lymphocytes % 11.8 % (15.3-44.8); MPV 10.9 fL (7.6-11.3); RBC Red Blood Cell Count 4.44 M/uL (3.86-4.86)
[2018-11-15 04:59] LABS: Magnesium 2.2 mg/dL (1.8-2.4); Potassium 4.9 mmol/L (3.5-5.1)
[2018-11-15] MEDS: FUROSEMIDE 40 MG TABLET PO SCH (08:11)
[2018-11-15] MEDS: FAMOTIDINE 20 MG TAB PO SCH ×2 (08:12→21:51)
[2018-11-15] MEDS: DIGOXIN 0.125 MG TABLET PO SCH (08:13)
[2018-11-15] MEDS: CARVEDILOL 6.25 MG TAB PO SCH ×2 (08:13→21:51)
[2018-11-15] MEDS: predniSONE 20 MG TAB PO SCH ×2 (08:13→21:51)
[2018-11-15] MEDS: APIXABAN 5 MG TABLET PO SCH ×2 (08:14→21:51)
[2018-11-15] MEDS: SPIRONOLACTONE 25 MG TABLET PO SCH (08:17)
[2018-11-15] MEDS: ALLOPURINOL 100 MG TAB PO SCH (08:18)
[2018-11-15] MEDS: ARFORMOTEROL TARTRATE 15 MCG/2 ML VIAL.NEB NEB SCH ×2 (12:07→21:10)
--- NOTE | 2018-11-15 14:06 | P.PN ---
Subjective Date of Service: 11/15/18 Primary Care Provider: Dr. Farfan([facility]); Pulmonary-Dr. Connolly; Cardiology-Dr. Montoya Chief Complaint: Respiratory failure Subjective: No C/O voiced, Improving Patient seen and examined at bedside. Chart reviewed, case discussed with nursing stuff. Patient reports improvement in breathing. No complaints this am. Review of Systems 10-point ROS is otherwise unremarkable Physical Examination - Vital Signs Temperature: 98.1 F Blood Pressure: 117/56 Pulse: 82 Respirations: 22 Pulse Ox (%): 94 - Physical Exam General: Alert, In no apparent distress, Oriented x3, Obese HEENT: Atraumatic, PERRLA, EOMI Neck: Supple, JVD not distended Respiratory: Clear to auscultation bilaterally, Normal air movement Cardiovascular: Regular rate/rhythm, Normal S1 S2 Gastrointestinal: Normal bowel sounds, No tenderness Musculoskeletal: No tenderness Integumentary: No rashes Neurological: Normal speech, Normal tone, Normal affect Lymphatics: No axilla or inguinal lymphadenopathy Assessment And Plan - Plan A 53-year-old female with; 1. Shortness of breath, now off BiPAP. 2. Acute on chronic respiratory failure with hypoxia secondary to chronic obstructive pulmonary disease and congestive heart failure, improving. Appreciate Pulmonology input. Patient bought oxygen from [employer] as she is uninsured and unable to get oxygen otherwise. Unfortunately, the machine she bought is not adequate for her and currently there are talks with AH patient for [facility] oxygen set up. 3. Acute chronic obstructive pulmonary disease exacerbation. Continue steroids, Brovana, Xopenex, and Atrovent. Patient does use oxygen at home. Continue to monitor pulse ox. 4. Acute on chronic diastolic heart failure, EF 77%. Recent stress test in August. Monitor I's and O's. Continue with diuretics and weigh daily. Continue fluid restriction. 5. Chronic atrial fibrillation, on anticoagulation, rate controlled. Continue digoxin, Eliquis, and Coreg. 6. Essential hypertension, stable. 7. Obstructive sleep apnea. Continue CPAP at night. 8. Chronic kidney disease, stage 3. Creatinine is 1.43, which is elevated over her baseline. We will continue to monitor. Avoid NSAIDs. 9. Mixed hyperlipidemia. We will continue Zocor. 10. Gout. Continue allopurinol, stable. 11. Gastroesophageal reflux disease without esophagitis. Continue Pepcid. 12. Morbid obesity, BMI 52. Patient will benefit from bariatric surgery. 13. Deep venous thrombosis prophylaxis with Lovenox. Plan: Likely discharge in the next 24 to 48 hours depending on clinical response and oxygen set up. Chest x-ray shows improvement. Negative fluid balance.
[2018-11-15] MEDS: ATORVASTATIN 20 MG TAB PO SCH (21:51)
[2018-11-16 07:11] LABS: Absolute Lymphocytes (CBC) 0.9 K/uL (0.7-4.9); Basophils % 0.7 % (0-1.3); Hematocrit 40.5 % (36.0-45.0); Lymphocytes % 13.6 % (15.3-44.8); MPV 10.8 fL (7.6-11.3); RBC Red Blood Cell Count 4.42 M/uL (3.86-4.86)
[2018-11-16 07:45] LABS: Magnesium 2.2 mg/dL (1.8-2.4); Potassium 4.7 mmol/L (3.5-5.1)
[2018-11-16] MEDS: APIXABAN 5 MG TABLET PO SCH ×2 (07:55→21:05)
[2018-11-16] MEDS: predniSONE 20 MG TAB PO SCH ×2 (07:55→21:05)
[2018-11-16] MEDS: DIGOXIN 0.125 MG TABLET PO SCH (07:55)
[2018-11-16] MEDS: CARVEDILOL 6.25 MG TAB PO SCH ×2 (07:56→21:05)
[2018-11-16] MEDS: FUROSEMIDE 40 MG TABLET PO SCH (07:56)
[2018-11-16] MEDS: FAMOTIDINE 20 MG TAB PO SCH ×2 (07:56→21:05)
[2018-11-16] MEDS: SPIRONOLACTONE 25 MG TABLET PO SCH (07:56)
[2018-11-16] MEDS: ALLOPURINOL 100 MG TAB PO SCH (07:57)
[2018-11-16] MEDS: ARFORMOTEROL TARTRATE 15 MCG/2 ML VIAL.NEB NEB SCH ×2 (10:12→19:35)
--- NOTE | 2018-11-16 18:34 | P.PN ---
Subjective Date of Service: 11/16/18 Primary Care Provider: Dr. Farfan([facility]); Pulmonary-Dr. Connolly; Cardiology-Dr. Montoya Chief Complaint: Respiratory failure Subjective: No C/O voiced, Improving Patient seen and examined at bedside. Chart reviewed, case discussed with nursing stuff. Patient reports improvement in breathing. No complaints this am. Review of Systems 10-point ROS is otherwise unremarkable Physical Examination - Vital Signs Temperature: 97.6 F Blood Pressure: 145/61 Pulse: 97 Respirations: 22 Pulse Ox (%): 93 - Physical Exam General: Alert, In no apparent distress, Obese HEENT: Atraumatic, PERRLA, EOMI Neck: Supple, JVD not distended Respiratory: Clear to auscultation bilaterally, Normal air movement Cardiovascular: Regular rate/rhythm, Normal S1 S2 Gastrointestinal: Normal bowel sounds, No tenderness Musculoskeletal: No tenderness Integumentary: No rashes Neurological: Normal speech, Normal tone, Normal affect Lymphatics: No axilla or inguinal lymphadenopathy Assessment And Plan - Plan A 53-year-old female with; 1. Shortness of breath, now off BiPAP. 2. Acute on chronic respiratory failure with hypoxia secondary to chronic obstructive pulmonary disease and congestive heart failure, improving. Appreciate Pulmonology input. Patient bought oxygen from [employer] as she is uninsured and unable to get oxygen otherwise. Unfortunately, the machine she bought is not adequate for her and currently there are talks with AH patient for [facility] up. 3. Acute chronic obstructive pulmonary disease exacerbation. Continue steroids, Brovana, Xopenex, and Atrovent. Patient does use oxygen at home. Continue to monitor pulse ox. 4. Acute on chronic diastolic heart failure, EF 77%. Recent stress test in August. Monitor I's and O's. Continue with diuretics and weigh daily. Continue fluid restriction. 5. Chronic atrial fibrillation, on anticoagulation, rate controlled. Continue digoxin, Eliquis, and Coreg. 6. Essential hypertension, stable. 7. Obstructive sleep apnea. Continue CPAP at night. 8. Chronic kidney disease, stage 3. Creatinine is 1.43, which is elevated over her baseline. We will continue to monitor. Avoid NSAIDs. 9. Mixed hyperlipidemia. We will continue Zocor. 10. Gout. Continue allopurinol, stable. 11. Gastroesophageal reflux disease without esophagitis. Continue Pepcid. 12. Morbid obesity, BMI 52. Patient will benefit from bariatric surgery. 13. Deep venous thrombosis prophylaxis with Lovenox. Plan: Likely discharge in the next 24 hours depending on clinical response and oxygen set up. Patient working on getting oxygen set up at home. She should likely have it tomorrow therefore will be discharged.
[2018-11-16] MEDS: IPRATROPIUM BROM 0.5MG/2.5ML NEB PRN (19:35)
[2018-11-16] MEDS: ATORVASTATIN 20 MG TAB PO SCH (21:05)
[2018-11-16 21:32] VITALS: O2SAT 95
[2018-11-17 08:02] VITALS: BP 133/75; TEMP 97.2
[2018-11-17] MEDS: FUROSEMIDE 40 MG TABLET PO SCH (08:35)
[2018-11-17] MEDS: APIXABAN 5 MG TABLET PO SCH (08:35)
[2018-11-17] MEDS: DIGOXIN 0.125 MG TABLET PO SCH (08:35)
[2018-11-17] MEDS: CARVEDILOL 6.25 MG TAB PO SCH (08:35)
[2018-11-17] MEDS: SPIRONOLACTONE 25 MG TABLET PO SCH (08:36)
[2018-11-17] MEDS: ALLOPURINOL 100 MG TAB PO SCH (08:36)
[2018-11-17] MEDS: predniSONE 20 MG TAB PO SCH (08:36)
[2018-11-17] MEDS: FAMOTIDINE 20 MG TAB PO SCH (08:36)
[2018-11-17] MEDS: ARFORMOTEROL TARTRATE 15 MCG/2 ML VIAL.NEB NEB SCH (09:35)
--- NOTE | 2018-11-17 18:37 | P.DS ---
Admission Date: 11/13/18 Discharge Date: 11/17/18 Primary Care Provider: Dr. Farfan([facility]); Pulmonary-Dr. Connolly; Cardiology-Dr. Montoya Disposition: ROUTINE DISCHARGE Discharge Condition: FAIR Reason for Admission: Respiratory failure Consultations: Cardiology Pulmonology Brief History of Present Illness: 53-year-old female presented to the emergency room with shortness of breath. Patient with underlying history of chronic renal disease, diastolic CHF, hypertension, chronic atrial fibrillation on chronic anti coagulation therapy, hyperlipidemia and COPD. Patient reported increasing shortness of breath over the last several days. She had reported some edema to the lower extremities as well. She is on multiple medications including Lasix and medication for COPD. Her shortness of breath got worse Overnite. She denied any fever, chills. She denied any chest pain. She came to the ER for further evaluation. Patient recently hospitalized in August of 2018 for chest pain. At that time her cardiac stress test was unremarkable. Echocardiogram showed ejection fraction 77%. In the ER patient evaluated. Patient was tachypneic and tachycardic upon arrival. She was also hypoxic with he room-air saturations around 88%. Patient required BiPAP in the emergency room. She received albuterol, IV steroid, and IV Lasix. Patient shows improvement. On lab white count 5.2, hemoglobin 13.7. Platelet count 194. Troponin unremarkable. BNP 476. Sodium 144, potassium 4.1, BUN of 12, creatinine 1.27 with a GFR 53. Glucose 91. Patient was admitted for further evaluation and treatment. When I saw the patient the ER, she was on BiPAP. She appeared improved. Patient reports increasing lower extremity edema to the extremities over the last several days. She is on a fluid restriction. She was recently given oxygen by her design painter. Hospital Course: Patient was admitted for shortness of breath, likely secondary to chronic obstructive pulmonary disease and congestive heart failure. Pulmonology and Cardiology were consulted. She was started on IV diuresis, nebulizer treatments , supportive care. She was eventually weaned off of BiPAP. Patient had bought a portable oxygen machine from online as she is uninsured unable to get oxygen otherwise. Unfortunately the machine that she bought is no longer adequate for her. An echocardiogram was also done which showed 77 percent ejection fraction. She had a recent stresses in August that was negative. Her home medications were continued and she did well otherwise throughout the stay. Her discharge was delayed due to her family and buying an oxygen concentrator machine for home. Family did bring a machine into the hospital, her oxygen saturation was test on their it seems IV was providing adequate oxygenation at this time. She was then cleared for discharge by cardiology as well as pulmonology. She was then discharged home in a safe and stable manner. Her diagnoses and discharge plan was explained to her that all questions were answered. She verbalized understanding. She will follow up with pulmonology in cardiology in the clinic. Vital Signs/Physical Exam: Temp Pulse Resp BP Pulse Ox 97.2 F 99 H 18 133/75 98 11/17/18 08:00 11/17/18 08:36 11/17/18 08:00 11/17/18 08:36 11/17/18 08:00 General: Alert, In no apparent distress, Obese HEENT: Atraumatic, PERRLA, EOMI Neck: Supple, JVD not distended Respiratory: Clear to auscultation bilaterally, Normal air movement Cardiovascular: Regular rate/rhythm, Normal S1 S2 Gastrointestinal: Normal bowel sounds, No tenderness Musculoskeletal: No tenderness Integumentary: No rashes Neurological: Normal speech, Normal tone, Normal affect Lymphatics: No axilla or inguinal lymphadenopathy Laboratory Data at Discharge: WBC 6.8 K/uL (4.3-10.9) 11/16/18 06:38 Hgb 13.0 g/dL (12.0-15.0) 11/16/18 06:38 Hct 40.5 % (36.0-45.0) 11/16/18 06:38 Plt Count 145 K/uL (152-406) L 11/16/18 06:38 PT 13.0 SECONDS (9.5-12.5) H 11/13/18 02:20 INR 1.11 11/13/18 02:20 Sodium 140 mmol/L (136-145) 11/16/18 06:38 Potassium 4.7 mmol/L (3.5-5.1) 11/16/18 06:38 BUN 23 mg/dL (7-18) H 11/16/18 06:38 Creatinine 1.20 mg/dL (0.55-1.3) 11/16/18 06:38 Glucose 132 mg/dL (74-106) H 11/16/18 06:38 Magnesium 2.2 mg/dL (1.8-2.4) 11/16/18 06:38 Total Bilirubin 1.0 mg/dL (0.2-1.0) 11/13/18 02:20 AST 22 U/L (15-37) 11/13/18 02:20 ALT 32 U/L (12-78) 11/13/18 02:20 Alkaline Phosphatase 65 U/L (45-117) 11/13/18 02:20 Troponin I < 0.02 ng/mL (0.0-0.045) 11/13/18 20:10 Home Medications: Allopurinol [Zyloprim*] 100 mg PO DAILY 08/27/18 Apixaban [Eliquis *] 5 mg PO BID 08/27/18 Carvedilol [Coreg*] 6.25 mg PO BID 08/27/18 Digoxin [Digitek] 125 mcg PO DAILY 08/27/18 Furosemide [Lasix] 80 mg PO BID 08/27/18 Simvastatin 40 mg PO BEDTIME 08/27/18 Spironolactone [Aldactone*] 25 mg PO DAILY 08/27/18 Budesonide/Formoterol Fumarate [Symbicort 80-4.5 Mcg Inhaler] 1 puff IH BID 10/24 Colchicine 0.6 mg PO DAILYPRN PRN 11/13/18 Multivitamin [Multivitamins] 1 each PO DAILY 11/13/18 Potassium Chloride [Klor-Con] 20 meq PO DAILY 11/13/18 Tramadol HCl [Ultram] 50 mg PO Q6HP PRN 11/13/18 Arformoterol Tartrate [Brovana] 15 mcg NEB BIDRESP #1 vial.neb 11/17/18 Digoxin [Lanoxin*] 125 mcg PO DAILY 30 Days #30 tab 11/17/18 Furosemide [Lasix*] 40 mg PO DAILY #30 tab 11/17/18 Spironolactone [Aldactone*] 25 mg PO DAILY 30 Days #30 tab 11/17/18 predniSONE [Prednisone*] 20 mg PO BID #14 tab 11/17/18 New Medications: Arformoterol Tartrate [Brovana] 15 mcg NEB BIDRESP #1 vial.neb Digoxin [Lanoxin*] 125 mcg PO DAILY 30 Days #30 tab Furosemide [Lasix*] 40 mg PO DAILY #30 tab predniSONE [Prednisone*] 20 mg PO BID #14 tab Spironolactone [Aldactone*] 25 mg PO DAILY 30 Days #30 tab Patient Discharge Instructions: Please follow up with your primary care physician in 2-3 days. Please follow up with Tutor in 2 weeks. Return to the ER for worsening symptoms. Diet: AHA Activity: Ad daniel Followup: Bennie Connolly MD [ACTIVE - CAN ADMIT] - (call to schedule appointment) Time spent managing pt's care (in minutes): 55
== END 2018-11-17 12:32 | disposition home or self-care (01) | DRG 291 ==
LOC: ER 01:50 → ERHOLD 04:35 → 3RD-ICU 04:48 → 4TH 11-14 03:06
PROVIDERS: ADMIT Family Medicine; ATTEND Family Medicine
PROC: 5A09457 Assistance with Respiratory Ventilation, 24-96 Consecutive Hours, Continuous Positive Airway Pressure (ICD-10-PCS; principal; 2018-11-13)
DX: I13.0 Hypertensive heart and chronic kidney disease with heart failure and stage 1 through stage 4 chronic kidney disease, or unspecified chronic kidney disease (principal); I50.33 Acute on chronic diastolic (congestive) heart failure; J96.21 Acute and chronic respiratory failure with hypoxia; J96.22 Acute and chronic respiratory failure with hypercapnia; J44.1 Chronic obstructive pulmonary disease with (acute) exacerbation; Z68.43 Body mass index [BMI] 50.0-59.9, adult; N18.3 Chronic kidney disease, stage 3 (moderate); I48.2 Chronic atrial fibrillation; G47.33 Obstructive sleep apnea (adult) (pediatric); E78.2 Mixed hyperlipidemia; M10.9 Gout, unspecified; K21.9 Gastro-esophageal reflux disease without esophagitis; E66.01 Morbid (severe) obesity due to excess calories; Z79.01 Long term (current) use of anticoagulants; Z99.81 Dependence on supplemental oxygen
CPT/HCPCS: 36415; 51702; 71045; 80048; 80076; 82550; 82553; 82805; 83735; 83880; 84439; 84443; 84484; 85025; 85610; 87040; 93005; 94640; 94660; 94760; 96374; 96375; 99285; J1940; J2930; J7512; J7605

== ENCOUNTER 2020-05-18 18:05 | Inpatient (IN) | payer OTHER ==
--- OUTSIDE RECORDS SUMMARY | 2020-05-18 18:07 | XMS REPORT | Continuity of Care Document ---
:1965 Author Organization [facility] t Address [address] [place] [address] Care Team Providers Name Role Phone Berkley Farfan MD Attending Clinician Jan PUCKETT Attending Clinician Kristie Caicedo Main Attending Clinician Unavailable Problems This patient has no known problems. Allergies, Adverse Reactions, Alerts This patient has no known allergies or adverse reactions. Medications This patient has no known medications. Procedures This patient has no known procedures. Encounters Start End Encounter Admission Attending Care Care Encounter Source Date/Time Date/Time Type Type Clinicians Facility Department ID 2020-05-14 2020-05-14 Refill Adolph [facility] [id number] 00:00:00 00:00:00 Berkley Miranda [id number] [place] [id number] Professio [phone] nal 044 [facility] 2020-05-14 2020-05-14 Refzeeshan Montoya [facility] [id number] 00:00:00 00:00:00 Elisa Miranda [id number] [place] [id number] Professio [phone] nal 059 [facility] 2020-05-13 2020-05-13 Audio Narrator Mickie Caicedo [facility] [id number] 14:42:24 14:57:24 [facility] [place] [id number] [place] [id number] [place] [phone] [facility] [address] 2020-05-13 2020-05-13 Office Jan [facility] [id number] 13:29:18 14:19:23 [facility] [place] [id number] [place] [id number] [phone] [address] Results This patient has no known results.
[2020-05-18 21:15] LABS: Absolute Lymphocytes (CBC) 1.9 K/uL (0.7-4.9); Basophils % 0.4 % (0-1.3); MPV 10.3 fL (7.6-11.3); RBC Red Blood Cell Count 4.64 M/uL (3.86-4.86)
[2020-05-18 21:32] LABS: Albumin 3.8 g/dL (3.4-5.0); Bilirubin Direct 0.2 mg/dL (0-0.2); Bilirubin Total 1.2 mg/dL (0.2-1.0); Potassium 4.1 mmol/L (3.5-5.1)
[2020-05-18] MEDS ORDERED: MEPERIDINE HCL 25 MG/ML SYR ONE (21:53)
--- NOTE | 2020-05-19 00:18 | ER ---
Nurse's Notes [facility] [place] Name: Danie Kumar Age: 55 yrs Sex: Female : 1965 Arrival Date: 05/18/2020 Time: 18:07 Bed 25 Private MD: Diagnosis: Diverticulitis of large intestine without perforation or abscess without bleeding Presentation: 05/18 18:19 Chief complaint: Patient states: L abd pain for 1 week. No BM for 1 week. + nausea, no ll1 known fever. No dysuria. Coronavirus screen: Client denies travel out of the [place] in the last 14 days. At this time, the client does not indicate any symptoms associated with coronavirus-19. Ebola Screen: Patient denies travel to an Ebola-affected area in the 21 days before illness onset. Initial Sepsis Screen: Does the patient meet any 2 criteria? No. Patient's initial sepsis screen is negative. Does the patient have a suspected source of infection? Yes: Acute abdominal pain. Risk Assessment: Do you want to hurt yourself or someone else? Patient reports no desire to harm self or others. Onset of symptoms was May 12, 2020. 18:19 Method Of Arrival: EMS ll1 18:19 Acuity: ANNABEL 3 ll1 Historical: - Allergies: 18:08 Adhesives; ll1 - PMHx: 18:08 cardiomyopathy; COPD; chronic kidney disease-stage 3; CHF; Gout; Hyperlipidemia; ll1 Hypertension; Sleep Apnea; - PSHx: 18:18 fluid removed from lungs; ll1 - Immunization history:: Flu vaccine is up to date. - Social history:: Smoking status: Patient/guardian denies using tobacco, the patient reports quitting approximately 10 years ago. - Family history:: not pertinent. - Hospitalizations: : No recent hospitalization is reported. Screenin:12 Abuse screen: Denies threats or abuse. Nutritional screening: No deficits noted. vg1 Tuberculosis screening: No symptoms or risk factors identified. Fall Risk No fall in past 12 months (0 pts). No secondary diagnosis (0 pts). IV access (20 points). Ambulatory Aid- None/Bed Rest/Nurse Assist (0 pts). Gait- Normal/Bed Rest/Wheelchair (0 pts) Mental Status- Oriented to own ability (0 pts). Total Contreras Fall Scale indicates No Risk (0-24 pts). Assessment: 21:06 General: Appears in no apparent distress. comfortable, Behavior is calm, cooperative. vg1 Pain: Complains of pain in umbilical area, left upper quadrant and left lower quadrant Pain currently is 9 out of 10 on a pain scale. Pain began Wednesday05/12/20. Neuro: Level of Consciousness is awake, alert, obeys commands, Oriented to person, place, time, situation. Cardiovascular: Patient's skin is warm and dry. Respiratory: Airway is patent Respiratory effort is even, unlabored. GI: Bowel sounds present X 4 quads. Abd is soft X 4 quads Abdomen is tender to palpation in umbilical area, left upper quadrant and left lower quadrant. : No signs and/or symptoms were reported regarding the genitourinary system. EENT: No signs and/or symptoms were reported regarding the EENT system. Derm: Skin is intact, Skin is pink, warm \T\ dry. Musculoskeletal: Circulation, motion, and sensation intact. 22:25 Reassessment: Patient appears in no apparent distress at this time. No changes from vg1 previously documented assessment. Patient and/or family updated on plan of care and expected duration. Pain level reassessed. Patient is alert, oriented x 3, equal unlabored respirations, skin warm/dry/pink. 23:52 Reassessment: Patient appears in no apparent distress at this time. Patient and/or vg1 family updated on plan of care and expected duration. Pain level reassessed. Patient is alert, oriented x 3, equal unlabored respirations, skin warm/dry/pink. Vital Signs: 18:19 BP 116 / 69; Pulse 60; Resp 18; Temp 98.6; Pulse Ox 99% ; Weight 152.41 kg; Height 5 ll1 ft. 9 in. (175.26 cm); Pain 9/10; 21:08 BP 126 / 72; Pulse 72; Resp 18; Pulse Ox 97% on 3 lpm NC; vg1 22:00 BP 112 / 57; Pulse 73; Resp 20; Pulse Ox 97% on 3 lpm NC; vg1 23:00 BP 118 / 62; Pulse 86; Resp 18; Pulse Ox 98% on 3 lpm NC; vg1 18:19 Body Mass Index 49.62 (152.41 kg, 175.26 cm) 1 ED Course: 18:07 Patient arrived in ED. ll1 18:08 Arm band placed on. ll1 18:20 Triage completed. ll1 20:14 Neal Helton MD is Attending Physician. rn 20:22 Ami Aguilera, MONISHA is Primary Nurse. vg1 21:06 Inserted saline lock: 20 gauge in right antecubital area, using aseptic technique. jg8 21:12 Patient has correct armband on for positive identification. Bed in low position. Call vg1 light in reach. Side rails up X2. 22:[address] via stretcher. vg1 22:50 CT Abd/Pelvis - PO and IV Contrast In Process Unspecified. EDMS 05/19 00:05 Report given to MONISHA Arnold. vg1 00:17 Subhash Lentz MD is Hospitalizing Provider. rn 00:51 COVID swab sent to lab. bb 00:51 No provider procedures requiring assistance completed. Patient admitted, IV remains in bb place. Administered Medications: 05/18 21:42 Drug: Demerol 25 mg Route: IVP; Site: right antecubital; vg1 22:23 Follow up: Response: No adverse reaction; Pain is decreased vg1 05/19 00:31 Drug: Cipro (ciprofloxacin) 400 mg Volume: 200 ml; Route: IVPB; Infused Over: 60 mins; bb Site: right antecubital; 01:28 Follow up: IV Status: Completed infusion; IV Intake: 100ml bb 00:31 Drug: Flagyl 500 mg Volume: 100 ml; Route: IVPB; Rate: 200 ml/hr; Infused Over: 30 bb mins; Site: right antecubital; 01:06 Follow up: IV Status: Completed infusion; IV Intake: 100ml bb Intake: 01:06 IV: 100ml; Total: 100ml. bb 01:28 IV: 100ml; Total: 200ml. bb Outcome: 00:18 Decision to Hospitalize by Provider. rn 00:51 Admitted to ER Hold. Please see [facility] for further documentation. bb 00:51 Condition: stable 00:51 Instructed on the need for admit. 16:12 Patient left the ED. ph Signatures: Dispatcher [employer] EDID Marielos Hogue RN RN Neal Helton MD MD rn Hall, Patricia, RN RN Boaz Rodriguez Victoria, RN RN [facility] Terrance Dobson RN RN ll1 Catalina Doran jg8 Corrections: (The following items were deleted from the chart) 05/18 21:05 21:04 Inserted saline lock: 20 gauge antecubital area, using aseptic technique. oe oe
--- NOTE | 2020-05-19 00:18 | EDPHYS ---
Physician Documentation [facility] Name: Danie Kumar Age: 55 yrs Sex: Female : 1965 Arrival Date: 05/18/2020 Time: 18:07 Bed 25 Private MD: ED Physician Neal Helton HPI: 05/18 20:23 This 55 yrs old Black Female presents to ER via EMS with complaints of Abd Pain > 50 rn y/o. 20:23 The patient presents with abdominal pain in the left lower quadrant. Onset: The rn symptoms/episode began/occurred 1 week(s) ago. The symptoms do not radiate. Associated signs and symptoms: Pertinent positives: constipation, Pertinent negatives: blood in stools, fever, nausea, shortness of breath, vomiting. The symptoms are described as achy, crampy. Modifying factors: The symptoms are alleviated by nothing, the symptoms are aggravated by touching the area. Severity of pain: At its worst the pain was moderate in the emergency department the pain is unchanged. The patient has experienced similar episodes in the past. Reports left sided abd pain, assoc with constipation, + hx of constipation but her normal laxative not helping, no BM for about a week. No fever. 20:26 The patient has not recently seen a physician. rn Historical: - Allergies: 18:08 Adhesives; ll1 - PMHx: 18:08 cardiomyopathy; COPD; chronic kidney disease-stage 3; CHF; Gout; Hyperlipidemia; ll1 Hypertension; Sleep Apnea; - PSHx: 18:18 fluid removed from lungs; ll1 - Immunization history:: Flu vaccine is up to date. - Social history:: Smoking status: Patient/guardian denies using tobacco, the patient reports quitting approximately 10 years ago. - Family history:: not pertinent. - Hospitalizations: : No recent hospitalization is reported. ROS: 20:23 Constitutional: Negative for fever, chills, and weight loss, Eyes: Negative for injury, rn pain, redness, and discharge, Neck: Negative for injury, pain, and swelling, Cardiovascular: Negative for chest pain, palpitations, and edema, Respiratory: Negative for shortness of breath, cough, wheezing, and pleuritic chest pain, Abdomen/GI: + abd pain and constipation Back: Negative for injury and pain, : Negative for injury, bleeding, discharge, and swelling, MS/Extremity: Negative for injury and deformity, Skin: Negative for injury, rash, and discoloration, Neuro: Negative for headache, weakness, numbness, tingling, and seizure. 20:23 All other systems are negative. Exam: 20:23 Constitutional: Overweight female, no acute distress, able to get into bed on her own. rn Head/Face: Normocephalic, atraumatic. Eyes: Periorbital areas with no swelling, redness, or edema. Cardiovascular: Regular rate and rhythm. No pulse deficits. Respiratory: No increased work of breathing, no retractions or nasal flaring. Abdomen/GI: Soft, + mild tenderness LLQ and LUQ, + small palpable umbilical hernia with mild tenderness but mild compared to left sided abd tenderness Skin: Warm, dry MS/ Extremity: Pulses equal, no cyanosis. Neurovascular intact. Full, normal range of motion. Equal circumference. Neuro: Awake and alert, GCS 15 Vital Signs: 18:19 BP 116 / 69; Pulse 60; Resp 18; Temp 98.6; Pulse Ox 99% ; Weight 152.41 kg; Height 5 ll1 ft. 9 in. (175.26 cm); Pain 9/10; 21:08 BP 126 / 72; Pulse 72; Resp 18; Pulse Ox 97% on 3 lpm NC; vg1 22:00 BP 112 / 57; Pulse 73; Resp 20; Pulse Ox 97% on 3 lpm NC; vg1 23:00 BP 118 / 62; Pulse 86; Resp 18; Pulse Ox 98% on 3 lpm NC; vg1 18:19 Body Mass Index 49.62 (152.41 kg, 175.26 cm) ll1 MDM: 20:14 Patient medically screened. rn 05/19 00:14 Differential diagnosis: bowel obstruction, diverticulitis, non-specific abd pain, rn Ureterolithiasis, urinary tract infection. Data reviewed: vital signs, nurses notes, lab test result(s), radiologic studies, CT scan, and as a result, I will admit patient. Counseling: I had a detailed discussion with the patient and/or guardian regarding: the historical points, exam findings, and any diagnostic results supporting the discharge/admit diagnosis, lab results, radiology results, the need for further work-up and treatment in the hospital. Response to treatment: the patient's symptoms have mildly improved after treatment, and as a result, I will admit patient. Admission orders: after a detailed discussion of the patient's condition and case, the admit orders are written by me. 00:15 ED course: CT shows diverticulitis, which fits story and exam, but also shows small rn rounded foreign body in left colon, after lengthy discussion with patient, unclear as to what this could be. Mainly stressed importance of knowing whether it is a button battery vs magnets, patient denies possibility. She does not recall eating or swallowing anything metal or chewing on something metallic. Does report there are beads/buttons on a mask she wears. Small and rounded, no need for retrieval, no perforation, already going to pass soon. Will admit for dvierticulitis and put on abx. . 05/18 20:21 Order name: Basic Metabolic Panel; Complete Time: 21:34 05/18 20:21 Order name: CBC with Diff; Complete Time: 21:34 05/18 20:21 Order name: Hepatic Function; Complete Time: 21:34 05/18 20:21 Order name: Lipase; Complete Time: 21:34 05/19 01:55 Order name: SARS-COV-2 RT PCR EDPA 05/18 20:21 Order name: IV Saline Lock; Complete Time: 21:03 05/18 20:22 Order name: CT Abd/Pelvis - PO and IV Contrast rn 05/19 08:49 Order name: Glucose, Ancillary Testing EDPA 05/19 12:25 Order name: Glucose, Ancillary Testing EDPA 05/18 20:21 Order name: Labs collected and sent; Complete Time: 21:03 rn Administered Medications: 05/18 21:42 Drug: Demerol 25 mg Route: IVP; Site: right antecubital; vg1 22:23 Follow up: Response: No adverse reaction; Pain is decreased vg1 05/19 00:31 Drug: Cipro (ciprofloxacin) 400 mg Volume: 200 ml; Route: IVPB; Infused Over: 60 mins; bb Site: right antecubital; 01:28 Follow up: IV Status: Completed infusion; IV Intake: 100ml bb 00:31 Drug: Flagyl 500 mg Volume: 100 ml; Route: IVPB; Rate: 200 ml/hr; Infused Over: 30 bb mins; Site: right antecubital; 01:06 Follow up: IV Status: Completed infusion; IV Intake: 100ml bb Disposition: 05/19/20 00:18 Hospitalization ordered by Subhash Lentz for Observation. Preliminary diagnosis is Diverticulitis of large intestine without perforation or abscess without bleeding. - Bed requested for Telemetry/MedSurg (observation). - Status is Observation. ph - Condition is Stable. - Problem is new. - Symptoms have improved. Signatures: Dispatcher [employer] EDPA GordonSania Sho Ornelas RN Marielos Bland RN RN Neal Nugent MD MD rn Hall, Patricia RN RN ph Willy, Ami, RN RN vg1 Terrance Dobson, RN RN ll1 Corrections: (The following items were deleted from the chart) 05/18 20:27 20:23 Constitutional: Overweight female, no acute distress, able to get into bed on her rn own. Head/Face: Normocephalic, atraumatic. Cardiovascular: Regular rate and rhythm. No pulse deficits. Respiratory: No increased work of breathing, no retractions or nasal flaring. Abdomen/GI: Soft, + mild tenderness LLQ and LUQ, + small palpable umbilical hernia with mild tenderness but mild compared to left sided abd tenderness Skin: Warm, dry MS/ Extremity: Pulses equal, no cyanosis. Neurovascular intact. Full, normal range of motion. Equal circumference. Neuro: Awake and alert, GCS 15 rn 05/19 00:05 05/18 23:56 Abdomen 1 View (KUB)+RAD.RAD.BRZ ordered. EDPA EDPA 05/19 00:41 00:18 Hospitalization Ordered by Subhash Lentz MD for Observation. Preliminary mw diagnosis is Diverticulitis of large intestine without perforation or abscess without bleeding. Bed requested for Telemetry/MedSurg (observation). Status is Observation. Condition is Stable. Problem is new. Symptoms have improved. rn 01:12 00:22 CORONAVIRUS+MR.LAB.BRZ ordered. [facility] EDPA 15:02 00:41 05/19/2020 00:18 Hospitalization Ordered by Subhash Lentz MD for Observation. bd Preliminary diagnosis is Diverticulitis of large intestine without perforation or abscess without bleeding. Bed requested for [facility] ER HOLD. Status is Observation. Condition is Stable. Problem is new. Symptoms have improved. mw 16:12 15:02 05/19/2020 00:18 Hospitalization Ordered by Subhash Lentz MD for Observation. ph Preliminary diagnosis is Diverticulitis of large intestine without perforation or abscess without bleeding. Bed requested for Telemetry/MedSurg (observation). Status is Observation. Condition is Stable. Problem is new. Symptoms have improved. bd
[2020-05-19] MEDS ORDERED: METRONIDAZOLE 500mg IVPB 500 MG/100 ML BAG IV ONE ×2 (00:39→09:38)
[2020-05-19] MEDS ORDERED: CIPROFLOXACIN 400mg IV 400 MG/200 ML BAG IV ONE ×2 (00:39→09:38)
[2020-05-19] MEDS ORDERED: ONDANSETRON 4 MG/2 ML VIAL IV PRN (03:16)
[2020-05-19] MEDS ORDERED: ACETAMINOPHEN 500 MG TAB PO PRN (03:16)
--- NOTE | 2020-05-19 04:22 | P.HP ---
Certification for Inpatient Patient admitted to: Observation With expected LOS: <2 Midnights Patient will require the following post-hospital care: None Practitioner: I am a practitioner with admitting privileges, knowledge of patient current condition, hospital course, and medical plan of care. Services: Services provided to patient in accordance with Admission requirements found in Title 42 Section 412.3 of the Code of Federal Regulations <GoodMarcus Chris - Last Filed: 05/19/20 04:26> Patient History Date of Service: 05/19/20 Reason for admission: diverticulitis History of Present Illness: Ms. Kumar is a 55 yo F with CHF, KIMBERLY on CPAP, HTN, DM, COPD, PAD, HLD, afib, and history of bowel rupture in 1998 here today for left lower quadrant cramping abdominal pain since Wednesday. She thought she was constipated or had heartburn, but no relief with drinking water, stool softener or Dahiana seltzer. She reports nausea and constipation and increased flatulence. Denies fever, vomiting, hematochezia, and melena. CT scan showed rounded 1.4cm metallic foreign object within the left colon at the descending/sigmoid colon junction, where there are mild inflammatory changes as well as moderate diverticulosis, inflammatory changes from ingested foreign object vs acute uncomplicated diverticulitis. Patient does not remember ingesting anything recently. - Past Medical/Surgical History Diabetic: No -: Diastolic CHF -: Chronic renal disease, stage III -: COPD, with chronic oxygen -: HTN -: Hyperlipidemia -: Obstructive sleep apnea non compliant with CPAP -: Obesity -: Gout -: Chronic atrial fibrillation on chronic anti coagulation therapy -: hysterectomy -: hernia repair Psychosocial/ Personal History: Patient lives at home. - Social History Smoking Status: Former smoker Alcohol use: No CD- Drugs: No Caffeine use: Yes Place of Residence: Home <Marcus Funk - Last Filed: 05/19/20 04:26> Date of Service: 05/19/20 <Subhash Lentz - Last Filed: 05/20/20 08:04> Allergies Adhesives Allergy (Uncoded 05/27/16 01:54) Unknown Home Medications: Apixaban [Eliquis *] 5 mg PO BID 08/27/18 Furosemide [Lasix] 80 mg PO BID 08/27/18 Simvastatin 40 mg PO BEDTIME 08/27/18 Spironolactone [Aldactone*] 25 mg PO DAILY 08/27/18 allopurinoL [Zyloprim*] 100 mg PO DAILY 08/27/18 carvediloL [Coreg*] 6.25 mg PO BID 08/27/18 Budesonide/Formoterol Fumarate [Symbicort 80-4.5 Mcg Inhaler] 2 puff IH BID 11/13/18 Colchicine 0.6 mg PO DAILYPRN PRN 11/13/18 Multivitamin [Multivitamins] 1 each PO DAILY 11/13/18 Potassium Chloride [Klor-Con] 20 meq PO DAILY 11/13/18 Digoxin [Lanoxin*] 125 mcg PO DAILY 30 Days #30 tab 11/17/18 Budesonide/Formoterol Fumarate [Budesonide-Formoterol 160-4.5] 2 puff IH BID 05/19/20 Nystatin Powder [Mycostatin (Powder)] 30 gm TP BID 05/19/20 Review of Systems General: Unremarkable Eyes: Unremarkable ENT: Unremarkable Respiratory: Unremarkable Cardiovascular: Unremarkable Gastrointestinal: Nausea, Abdominal Pain, Constipation, As per HPI Genitourinary: Unremarkable Musculoskeletal: Unremarkable Integumentary: Unremarkable Neurological: Unremarkable Lymphatics: Unremarkable <GoodMarcus S - Last Filed: 05/19/20 04:26> Physical Examination - Vital Signs Temperature: 98.6 F Blood Pressure: 116/69 Pulse: 60 Respirations: 18 Pulse Ox (%): 99 - Physical Exam General: Alert, In no apparent distress, Oriented x3, Cooperative HEENT: Atraumatic, Normocephalic, PERRLA, Mucous membr. moist/pink, EOMI, Sclerae nonicteric Neck: Supple, 2+ carotid pulse no bruit, JVD not distended, No Thyromegaly, No LAD Respiratory: Clear to auscultation bilaterally, Normal air movement Cardiovascular: No edema, Normal pulses, Regular rate/rhythm, Normal S1 S2, No gallops, No rubs, No murmurs Capillary refill: <2 Seconds Gastrointestinal: Normal bowel sounds, Soft and benign, Non-distended, No ascites, No masses, No rebound, No guarding, Tenderness Musculoskeletal: No clubbing, No swelling, No contractures, No erythema, No tenderness, No warmth Integumentary: No rashes, No breakdown, No significant lesion, No tenderness/swelling, No erythema, No warmth, No cyanosis Neurological: Normal gait, Normal speech, Normal strength at 5/5 x4 extr, Normal tone, Sensation intact, Cranial nerves 3-12 intact, Normal affect Lymphatics: No axilla or inguinal lymphadenopathy - Studies Laboratory Data (last 24 hrs) 05/18/20 20:50: WBC 10.00, Hgb 13.0, Hct 41.0, Plt Count 149 L 05/18/20 20:50: Sodium 140, Potassium 4.1, BUN 14, Creatinine 1.09, Glucose 87, Total Bilirubin 1.2 H, AST 22, ALT 34, Alkaline Phosphatase 58, Lipase 89 <Marcus Funk - Last Filed: 05/19/20 04:26> Assessment and Plan - Problems (Diagnosis) (1) Diverticulitis Current Visit: Yes Status: Acute Plan: tylenol for pain control. IV cipro and flagyl. soft diet. continue to monitor. (2) Foreign body ingestion Current Visit: Yes Status: Acute Plan: CT shows rounded 1.4 cm metallic foreign object in the left colon. Qualifiers: Encounter type: initial encounter Qualified Code(s): T18.9XXA - Foreign body of alimentary tract, part unspecified, initial encounter (3) Gout Current Visit: Yes Status: Chronic Plan: reconcile and continue home medications Qualifiers: Gout site: unspecified site Gout etiology: unspecified cause Chronicity: unspecified Qualified Code(s): M10.9 - Gout, unspecified (4) Chronic atrial fibrillation Current Visit: Yes Status: Chronic Plan: stable. reconcile and continue home medications. (5) COPD (chronic obstructive pulmonary disease) Current Visit: Yes Status: Chronic Plan: stable. reconcile and continue home medications Qualifiers: COPD type: unspecified COPD Qualified Code(s): J44.9 - Chronic obstructive pulmonary disease, unspecified (6) CHF (congestive heart failure) Current Visit: No Status: Chronic Plan: stable. reconcile and continue home medications. Qualifiers: Heart failure type: unspecified Heart failure chronicity: acute on chronic Qualified Code(s): I50.9 - Heart failure, unspecified (7) Hyperlipidemia Current Visit: No Status: Acute Plan: stable. reconcile and continue home medications. Qualifiers: Hyperlipidemia type: unspecified Qualified Code(s): E78.5 - Hyperlipidemia, unspecified (8) Hypertension Current Visit: No Status: Chronic Plan: stable. reconcile and continue home medications. Qualifiers: Hypertension type: essential hypertension Qualified Code(s): I10 - Essential (primary) hypertension Discharge Plan: Home Plan to discharge in: 24 Hours - Advance Directives Does patient have a Living Will: No Does patient have a Durable POA for Healthcare: No - Code Status/Comfort Care Code Status Assessed: Yes (full code) Critical Care: No Time Spent Managing Pts Care (In Minutes): 70 <Marcus Funk - Last Filed: 05/19/20 04:26> Date of Service: 05/19/20 spoke with Radiology regarding metallic object and they recommended repeating i maging studies. Will do this in the morning. Will give patient a laxative and see if we can get her GI tract cleared out and hopefully the metallic object will be expelled during a bowel movement. If it will not be expelled then we may need to get either GI or General surgery for colonoscopy with possible retrieval. We do not have GI available on-call. General surgery-Dr. De Paz will be available Wednesday. May notify him regarding patient's status and see if he will help with colonoscopy. <Subhash Lentz - Last Filed: 05/20/20 08:04>
[2020-05-19 05:26] VITALS: BMI 49.6
[2020-05-19] MEDS: INSULIN -REGULAR HUMAN 50 UNIT/0.5 ML ML SQ SCH ×4 (07:30→21:00)
[2020-05-19] MEDS: MORPHINE 2 MG/ML SYR IV PRN ×2 (08:30→21:02)
[2020-05-19] MEDS: METRONIDAZOLE 500mg IVPB 500 MG/100 ML BAG IV SCH ×2 (09:00→18:02)
[2020-05-19] MEDS: APIXABAN 5 MG TABLET PO SCH ×2 (09:00→21:04)
[2020-05-19] MEDS ORDERED: ONDANSETRON 4 MG/2 ML VIAL ONE (09:03)
[2020-05-19] MEDS ORDERED: APIXABAN 5 MG TABLET ONE (09:38)
[2020-05-19] MEDS: CIPROFLOXACIN 400mg IV 400 MG/200 ML BAG IV SCH ×2 (12:00→21:04)
[2020-05-19] MEDS ORDERED: MINERAL OIL 30 ML UCUP PO ONE (19:31)
[2020-05-20] MEDS: METRONIDAZOLE 500mg IVPB 500 MG/100 ML BAG IV SCH ×3 (01:04→17:00)
[2020-05-20 04:57] LABS: Absolute Lymphocytes (CBC) 1.9 K/uL (0.7-4.9); Basophils % 0.9 % (0-1.3); Hematocrit 37.1 % (36.0-45.0); Lymphocytes % 24.8 % (15.3-44.8); MPV 10.4 fL (7.6-11.3); RBC Red Blood Cell Count 4.14 M/uL (3.86-4.86)
[2020-05-20 05:18] LABS: Albumin 3.2 g/dL (3.4-5.0); Bilirubin Total 1.8 mg/dL (0.2-1.0); Potassium 3.9 mmol/L (3.5-5.1)
[2020-05-20 07:16] LABS: Urine Appearance CLEAR; Urine Bilirubin NEGATIVE (NEG); Urine Blood NEGATIVE (NEG); Urine Color YELLOW; Urine Glucose NEGATIVE (NEG); Urine Protein NEGATIVE (NEG); Urine Specific Gravity 1.015 (1.005-1.030)
[2020-05-20] MEDS: INSULIN -REGULAR HUMAN 50 UNIT/0.5 ML ML SQ SCH ×3 (07:30→16:30)
--- NOTE | 2020-05-20 07:47 | RAD REPORT ---
EXAM DESCRIPTION: RAD - Abdomen W Erect - 05/20/2020 6:35 am CLINICAL HISTORY: foreign body; free air COMPARISON: Abdomen Pelvis W Contrast dated 05/18/2020 TECHNIQUE: Supine and upright views of the abdomen were obtained. FINDINGS: No free air under the diaphragm. No pneumatosis identified. No extravasation of the PO con trast from the May 18 CT study. There is been antegrade movement of the contrast column since the C T study. However, the contrast has not reached the sigmoid colon. The metallic density foreign body i n the left lower quadrant, localized to the sigmoid colon on the CT study, has not change position. T he foreign body was in the segment of colon showing colitis/diverticulitis change. No small bowel dilatation. Air, contrast and stool are present in the colon from cecum to splenic fle xure. Numerous clips are seen from hernia repair. No suspicious calcifications. IMPRESSION: The sigmoid colon metallic foreign body has not change position. Stool and contrast have shown antegrade movement since the May 18 CT study but have not reached the sigmoid colon. No free air, pneumatosis or extravasation of contrast.
[2020-05-20 07:54] LABS: Urine Microscopic Reflex NO UMIC
[2020-05-20 08:54] VITALS: TEMP 97
[2020-05-20] MEDS ORDERED: LACTULOSE 20 GM/30 ML UCUP PO ONE (08:57)
[2020-05-20] MEDS ORDERED: allopurinoL 100 MG TAB PO SCH (09:00)
[2020-05-20] MEDS ORDERED: DIGOXIN 0.125 MG TABLET PO SCH (09:00)
[2020-05-20] MEDS ORDERED: SPIRONOLACTONE 25 MG TABLET PO SCH (09:00)
[2020-05-20] MEDS ORDERED: carvediloL 6.25 MG TAB PO SCH (09:00)
[2020-05-20] MEDS ORDERED: NYSTATIN PWDR 100000 UNIT/GM TOP SCH ×2 (09:00→10:30)
[2020-05-20] MEDS: APIXABAN 5 MG TABLET PO SCH (09:45)
[2020-05-20] MEDS: MORPHINE 2 MG/ML SYR IV PRN (10:00)
[2020-05-20] MEDS ORDERED: DULERA 200/5 (MOMETASONE/FORMOTEROL) INHALER IH SCH (10:00)
[2020-05-20] MEDS: CIPROFLOXACIN 400mg IV 400 MG/200 ML BAG IV SCH ×2 (10:07→10:41)
--- NOTE | 2020-05-20 12:06 | RAD REPORT ---
EXAM DESCRIPTION: CT - Abdomen Pelvis W Contrast - 05/19/2020 6:25 am CLINICAL HISTORY: Abd pain;Constipation. COMPARISON: None. TECHNIQUE: CT of the abdomen and pelvis was performed following intravenous administration of iodina marline contrast. Arterial and portal venous phase images were obtained. Oral contrast was administered. Axial, coronal, and sagittal soft tissue window reconstructions were created and sent to PACS. This exam was performed according to our departmental dose-optimization program, which includes autom ated exposure control, adjustment of the mA and/or kV according to patient size and/or use of iterati ve reconstruction technique. FINDINGS: Thoracic: No significant abnormality. Hepatobiliary: Hepatomegaly, measuring 20.3 cm craniocaudal. No concerning hepatic lesion identified. The hepatic and portal veins are patent. The gallbladder is unremarkable. No biliary ductal dilatati on. Pancreas: Unremarkable. Spleen: Unremarkable. Gastrointestinal: Mild motion degradation and streak artifact in the lower abdomen/pelvis. There is a rounded 1.4 cm metallic foreign object within the left colon at the descending/sigmoid colon junctio n, where there is mild surrounding fat stranding and wall thickening. There is moderate diverticulosi s in this location. No adjacent free air or walled off fluid collection. No evidence of bowel obstruc tion or perienteric inflammation. The appendix is normal. Adrenals: No abnormality identified in either adrenal gland. Renal: Tiny inferior left renal hypodensity, too small to accurately characterize but statistically l ikely a cyst. No concerning parenchymal abnormality in either kidney. No hydronephrosis or urolithias is. Bladder/Reproductive: Unremarkable appearance of the urinary bladder by CT technique. Prior hysterect jeremy Vascular/Lymphatics: No lymphadenopathy identified by CT size criteria. Abdominal aorta is normal in caliber. The major visceral vessels are patent. Musculoskeletal: No concerning osseous lesion identified. Osteopenia. Evidence of prior hernia repair along the anterior abdominal wall. No evidence of recurrent hernia. Fluid / peritoneum: No significant free fluid. No free intraperitoneal air identified. IMPRESSION 1. Rounded 1.4 cm metallic foreign object within the left colon at the descending/sigmo id colon junction, where there are mild inflammatory changes as well as moderate diverticulosis. No a djacent free air or walled off fluid collection identified. 2. Differential include inflammatory changes from an ingested foreign object, versus acute uncompli cated diverticulitis. 3. Prior ventral hernia repair with no evidence of recurrent hernia. Electronically signed by: Blanca Lorenzo MD 05/18/2020 10:59 PM [employer] Due to temporary technical issues with the PACS/Fluency reporting system, reports are being signed by the in house radiologists without review as a courtesy to insure prompt reporting. The interpreting radiologist is fully responsible for the content of the report.
[2020-05-20 13:08] VITALS: O2SAT 93
--- NOTE | 2020-05-20 15:15 | P.DS ---
Admission Date: 05/19/20 Discharge Date: 05/20/20 Primary Care Provider: Dr. Farfan([facility]) Disposition: ROUTINE DISCHARGE Discharge Condition: GOOD Reason for Admission: diverticulitis Consultations: none Procedures: COVID: Negative CT Scan: FINDINGS: Thoracic: No significant abnormality. Hepatobiliary: Hepatomegaly, measuring 20.3 cm craniocaudal. No concerning hepatic lesion identified. The hepatic and portal veins are patent. The gallbladder is unremarkable. No biliary ductal dilatation. Pancreas: Unremarkable. Spleen: Unremarkable. Gastrointestinal: Mild motion degradation and streak artifact in the lower abdomen/pelvis. There is a rounded 1.4 cm metallic foreign object within the left colon at the descending/sigmoid colon junction, where there is mild surrounding fat stranding and wall thickening. There is moderate diverticulosis in this location. No adjacent free air or walled off fluid collection. No evidence of bowel obstruction or perienteric inflammation. The appendix is normal. Adrenals: No abnormality identified in either adrenal gland. Renal: Tiny inferior left renal hypodensity, too small to accurately characterize but statistically likely a cyst. No concerning parenchymal abnormality in either kidney. No hydronephrosis or urolithiasis. Bladder/Reproductive: Unremarkable appearance of the urinary bladder by CT technique. Prior hysterectomy Vascular/Lymphatics: No lymphadenopathy identified by CT size criteria. Abdominal aorta is normal in caliber. The major visceral vessels are patent. Musculoskeletal: No concerning osseous lesion identified. Osteopenia. Evidence of prior hernia repair along the anterior abdominal wall. No evidence of recurrent hernia. Fluid / peritoneum: No significant free fluid. No free intraperitoneal air identified. IMPRESSION 1. Rounded 1.4 cm metallic foreign object within the left colon at the descending/sigmoid colon junction, where there are mild inflammatory changes as well as moderate diverticulosis. No adjacent free air or walled off fluid collection identified. 2. Differential include inflammatory changes from an ingested foreign object, versus acute uncomplicated diverticulitis. 3. Prior ventral hernia repair with no evidence of recurrent hernia. Follow up KUB: No free air or indication of rupture. Metallic object no longer present Medical Problem List: Acute diverticulitis with metallic foreign body-rounded 1.4 cm object Gout Chronic atrial fibrillation on chronic anti coagulation therapy COPD on chronic oxygen HTN Hyperlipidemia Chronic Diastolic CHF Brief History of Present Illness: Ms. Kumar is a 55 yo F with CHF, KIMBERLY on CPAP, HTN, DM, COPD, PAD, HLD, afib, and history of bowel rupture in 1998 here today for left lower quadrant cramping abdominal pain since Wednesday. She thought she was constipated or had heartburn, but no relief with drinking water, stool softener or Dahiana seltzer. She reports nausea and constipation and increased flatulence. Denies fever, vomiting, hemato chezia, and melena. CT scan showed rounded 1.4cm metallic foreign object within the left colon at the descending/sigmoid colon junction, where there are mild inflammatory changes as well as moderate diverticulosis, inflammatory changes from ingested foreign object vs acute uncomplicated diverticulitis. Patient does not remember ingesting anything recently. Hospital Course: Patient presented with abdominal pain secondary to acute diverticulitis. CT scan revealed descending/sigmoid colon inflammation. CT scan also showed a 1.4 cm round metallic foreign object in the left colon. Patient received IV antibiotic therapy with improvement. No surgical intervention was required. Patient had several bowel movements. Pain improved. Patient tolerating soft diet at discharge. Repeat x-ray showed passage of foreign body. Metallic object no longer present. Patient reports having colonoscopy last year. Education on diverticulitis provided. At discharge patient will continue with Cipro 500 mg 1 pill twice daily and Flagyl 500 mg 3 times a day for 7 days. Patient will also continue with lactobacillus 3 times a day. Recommend follow up with [facility] who she sees as an outpatient in 1-2 weeks to follow up this hospitalization. Patient would benefit with repeat colonoscopy in 6-8 weeks. Patient with history of chronic atrial fibrillation on anti coagulation therapy. At discharge patient will continue with her medications including digoxin 0.125 mg daily and Eliquis 5 mg 1 pill twice daily. Patient with chronic diastolic CHF. This appears stable. At discharge she will continue with her medications including Lasix 80 mg 1 pill twice daily, Aldactone 25 mg daily and potassium supplementation 20 mEq daily. Patient will continue with a 1500 cc per day fluid restriction. Patient also has oxygen at home. She is to continue with oxygen to maintain sats above 93%. Patient with COPD. At discharge she will continue with her COPD medication Symbicort 2 puffs twice daily. Continue with oxygen to maintain sats above 93%. Patient with hypertension. At discharge she will continue with carvedilol 6.25 mg 1 pill twice daily. Recommend to maintain blood pressure less than 130/80. Further adjustment can be done by her PCP. Patient with gout. At discharge she will continue with allopurinol 100 mg daily. Patient with hyperlipidemia. At discharge she will continue with Zocor 40 mg daily. Patient will continue with multi vitamin daily. Vital Signs/Physical Exam: Temp Pulse Resp BP Pulse Ox 97 F 78 18 109/55 L 97 05/20/20 12:00 05/20/20 12:00 05/20/20 12:00 05/20/20 12:00 05/20/20 12:00 General: Alert, In no apparent distress, Oriented x3, Cooperative HEENT: Atraumatic Neck: Supple Respiratory: Clear to auscultation bilaterally, Normal air movement Cardiovascular: Normal pulses, Regular rate/rhythm Gastrointestinal: Normal bowel sounds, Soft and benign, Non-distended, No tenderness, No masses, No rebound, No guarding, Other (Morbid obesity.) Neurological: Normal speech, Normal strength at 5/5 x4 extr, Normal tone, Normal affect Laboratory Data at Discharge: WBC 7.50 K/uL (4.3-10.9) D 05/20/20 04:43 Hgb 11.4 g/dL (12.0-15.0) L 05/20/20 04:43 Hct 37.1 % (36.0-45.0) 05/20/20 04:43 Plt Count 143 K/uL (152-406) L 05/20/20 04:43 Sodium 139 mmol/L (136-145) 05/20/20 04:43 Potassium 3.9 mmol/L (3.5-5.1) 05/20/20 04:43 BUN 11 mg/dL (7-18) 05/20/20 04:43 Creatinine 1.06 mg/dL (0.55-1.3) 05/20/20 04:43 Glucose 105 mg/dL (74-106) 05/20/20 04:43 Total Bilirubin 1.8 mg/dL (0.2-1.0) H 05/20/20 04:43 AST 21 U/L (15-37) 05/20/20 04:43 ALT 28 U/L (12-78) 05/20/20 04:43 Alkaline Phosphatase 53 U/L (45-117) 05/20/20 04:43 Lipase 89 U/L (73-393) 05/18/20 20:50 Home Medications: Apixaban [Eliquis *] 5 mg PO BID 08/27/18 Furosemide [Lasix] 80 mg PO BID 08/27/18 Simvastatin 40 mg PO BEDTIME 08/27/18 Spironolactone [Aldactone*] 25 mg PO DAILY 08/27/18 allopurinoL [Zyloprim*] 100 mg PO DAILY 08/27/18 carvediloL [Coreg*] 6.25 mg PO BID 08/27/18 Colchicine 0.6 mg PO DAILYPRN PRN 11/13/18 Multivitamin [Multivitamins] 1 each PO DAILY 11/13/18 Potassium Chloride [Klor-Con] 20 meq PO DAILY 11/13/18 Digoxin [Lanoxin*] 125 mcg PO DAILY 30 Days #30 tab 11/17/18 Budesonide/Formoterol Fumarate [Budesonide-Formoterol 160-4.5] 2 puff IH BID 05/19/20 Nystatin Powder [Mycostatin (Powder)*] 30 gm TP BID 05/19/20 Ciprofloxacin HCl [Cipro 500 MG Tablet] 500 mg PO BID #14 tab 05/20/20 Lactobacillus Acidophilus [Acidophilus Lactobacilli] 1 each PO TID #30 capsule 05/20/20 metroNIDAZOLE [Flagyl] 500 mg PO Q8H #21 tablet 05/20/20 New Medications: Lactobacillus Acidophilus [Acidophilus Lactobacilli] 1 each PO TID #30 capsule Ciprofloxacin HCl [Cipro 500 MG Tablet] 500 mg PO BID #14 tab metroNIDAZOLE [Flagyl] 500 mg PO Q8H #21 tablet Physician Discharge Instructions: Patient presented with abdominal pain secondary to acute diverticulitis. CT scan revealed descending/sigmoid colon inflammation. CT scan also showed a 1.4 cm round metallic foreign object in the left colon. Patient received IV antibiotic therapy with improvement. No surgical intervention was required. Patient had several bowel movements. Pain improved. Patient tolerating soft diet at discharge. Repeat x-ray showed passage of foreign body. Metallic object no longer present. Patient reports having colonoscopy last year. Education on diverticulitis provided. At discharge patient will continue with Cipro 500 mg 1 pill twice daily and Flagyl 500 mg 3 times a day for 7 days. Patient will also continue with lactobacillus 3 times a day. Recommend follow up with [facility] who she sees as an outpatient in 1-2 weeks to follow up this hospitalization. Patient would benefit with repeat colonoscopy in 6-8 weeks. Patient with history of chronic atrial fibrillation on anti coagulation therapy. At discharge patient will continue with her medications including digoxin 0. 125 mg daily and Eliquis 5 mg 1 pill twice daily. Patient with chronic diastolic CHF. This appears stable. At discharge she will continue with her medications including Lasix 80 mg 1 pill twice daily, Aldactone 25 mg daily and potassium supplementation 20 mEq daily. Patient will continue with a 1500 cc per day fluid restriction. Patient also has oxygen at home. She is to continue with oxygen to maintain sats above 93%. Patient with COPD. At discharge she will continue with her COPD medication Symbicort 2 puffs twice daily. Continue with oxygen to maintain sats above 93%. Patient with hypertension. At discharge she will continue with carvedilol 6.25 mg 1 pill twice daily. Recommend to maintain blood pressure less than 130/80. Further adjustment can be done by her PCP. Patient with gout. At discharge she will continue with allopurinol 100 mg daily. Patient with hyperlipidemia. At discharge she will continue with Zocor 40 mg daily. Patient will continue with multi vitamin daily. Diet: AHA Activity: Ad daniel Followup: Berkley Farfan MD [Primary Care Provider] - Time spent managing pt's care (in minutes): 55
--- NOTE | 2020-05-20 16:36 | RAD REPORT ---
EXAM DESCRIPTION: RAD - Abdomen 1 View (KUB) - 05/20/2020 3:56 pm CLINICAL HISTORY: follow metallic speck, diverticulitis COMPARISON: Abdomen W Erect dated 05/20/2020 FINDINGS: Previously detailed metallic foreign body in the sigmoid colon is not identifiable on thes e images indicating passage. The stool and CT contrast column has reached the distal rectum. No suspicion for free air, pneumatosis or extravasation of bowel content. IMPRESSION: Previously detailed metallic foreign body in the sigmoid colon has cleared from the GI t ract.
[2020-05-20 18:02] VITALS: BP 116/68
[2020-05-20] MEDS ORDERED: ATORVASTATIN 20 MG TAB PO SCH (21:00)
[2020-05-20] MEDS ORDERED: FUROSEMIDE 40 MG TABLET PO SCH (21:00)
[2020-05-21] MEDS ORDERED: POTASSIUM CL SA 10 MEQ TAB PO SCH (09:00)
[2020-05-21] MEDS ORDERED: MULTIVITAMIN TAB PO SCH (09:00)
== END 2020-05-20 18:11 | disposition home or self-care (01) | DRG 392 ==
LOC: ER 18:05 → OBSVTOIN 05-19 03:14 → ERHOLD 05-19 03:14 → 2ND 05-19 15:47
PROVIDERS: ADMIT Hospitalist; ATTEND Family Medicine
PROC: 5A09457 Assistance with Respiratory Ventilation, 24-96 Consecutive Hours, Continuous Positive Airway Pressure (ICD-10-PCS; principal; 2020-05-19)
DX: K57.32 Diverticulitis of large intestine without perforation or abscess without bleeding (principal); I13.0 Hypertensive heart and chronic kidney disease with heart failure and stage 1 through stage 4 chronic kidney disease, or unspecified chronic kidney disease; I50.32 Chronic diastolic (congestive) heart failure; I48.20 Chronic atrial fibrillation, unspecified; N18.30 Chronic kidney disease, stage 3 unspecified; E11.22 Type 2 diabetes mellitus with diabetic chronic kidney disease; E78.5 Hyperlipidemia, unspecified; M10.9 Gout, unspecified; J44.9 Chronic obstructive pulmonary disease, unspecified; T18.4XXA Foreign body in colon, initial encounter; Z87.891 Personal history of nicotine dependence; Z91.048 Other nonmedicinal substance allergy status; Z79.01 Long term (current) use of anticoagulants; Z99.81 Dependence on supplemental oxygen; Z79.899 Other long term (current) drug therapy; Z20.822 Contact with and (suspected) exposure to COVID-19
CPT/HCPCS: 36415; 74018; 74019; 74177; 80048; 80053; 80076; 81003; 82947; 83690; 85025; 94660; 94760; 96365; 96368; 96375; 99285; J0744; J2175; J2270; J2405; J7606; Q9967; U0003